=== PATIENT | male | born 1960 | race Caucasian/White ===

== ENCOUNTER 2017-04-13 22:13 | Inpatient (IN) | payer OTHER ==
[~2017-04-13] VITALS: Ht 172.7 cm; Wt 93.6 kg
[~2017-04-13 22:13] MED LIST: ADVA500A INH; BETA0.052 TOPICAL; CLAR10CA3 PO; IPRAAER INH; RANI150T PO; SPIRCAP INH; TERA1CAP3 PO
[2017-04-13 22:15] VITALS: BP 148/76; PULSE 100; RESP 18; TEMP 98.7; O2SAT 98
[2017-04-13 22:43] VITALS: BP 155/78; PULSE 96; RESP 18; TEMP 98.7; O2SAT 96
[2017-04-13] MEDS ORDERED: SODIUM CHLORIDE 0.9% FLUSH 10 ML FLUSH IV FLUSH PRN (23:00)
[2017-04-13 23:15] VITALS: RESP 18; O2SAT 96
--- NOTE | 2017-04-13 23:34 | RADRPT ---
EXAM DATE/TIME: 04/13/2017 23:21 [facility] COMPARISON: No previous studies available for comparison. INDICATIONS : Abdomen pain, free air. MEDICAL HISTORY : Myocardial infarction. Congestive heart failure. Chronic obstructive pulmonary disease. SURGICAL HISTORY : None. ENCOUNTER: Initial ACUITY: 2 months PAIN SCORE: 8/10 LOCATION: Bilateral chest FINDINGS: A single view of the chest demonstrates the lungs to be symmetrically aerated without evidence of mas s, infiltrate or effusion. The cardiomediastinal contours are unremarkable. Osseous structures are intact. No significant free air. CONCLUSION: 1. No acute cardiopulmonary disease. 2. No significant free air. Eloy Patel MD on April 13, 2017 at 23:33 Board Certified Radiologist. This report was verified electronically.
[2017-04-13 23:38] LABS: HEMATOCRIT 36.1 % (39.0-51.0); MEAN CELL VOLUME 117.5 FL (80.0-100.0); MEAN CORPUSCULAR HEMOGLOBIN 39.9 PG (27.0-34.0); RED BLOOD COUNT 3.07 MIL/MM3 (4.50-5.90); RED CELL DISTRIBUTION WIDTH 13.9 % (11.6-17.2); WHITE BLOOD COUNT 8.5 TH/MM3 (4.0-11.0)
[2017-04-13 23:39] LABS: HEMO FLAGS AUTO DIFF; PLATELET COUNT 78 TH/MM3 (150-450)
[2017-04-13 23:46] LABS: CHLORIDE 96 MEQ/L (98-107); POTASSIUM 3.7 MEQ/L (3.5-5.1); SODIUM (NA) 131 MEQ/L (136-145)
[2017-04-13 23:50] LABS: ANION GAP 10 MEQ/L (5-15)
[2017-04-13 23:51] LABS: APTT (PATIENT) 35.5 SEC (24.3-30.1); BLOOD UREA NITROGEN 15 MG/DL (7-18); INTERNATIONAL NORMALIZED RATIO 1.5 RATIO; PROTHROMBIN TIME - PATIENT 16.5 SEC (9.8-11.6)
[2017-04-13 23:53] LABS: ALT (GPT) 17 U/L (12-78); AST (GOT) 44 U/L (15-37); GLOMERULAR FILTRATION RATE 69 ML/MIN (>89)
[2017-04-13 23:54] LABS: BANDS 4 % (0-6); BASOPHILS 1 % (0-2); EOSINOPHILS 1 % (0-4); NEUTROPHIL # MANUAL DIFF 7.1 TH/MM3 (1.8-7.7); POLYS (SEG NEUTROPHILS) 80 % (16-70); WBC DIFF SAMPLE 100
[2017-04-13 23:55] LABS: PLATELET ESTIMATE SMEAR LOW (NORMAL); PLATELET MORPHOLOGY NORMAL (NORMAL); SCAN/DIFF FINAL DIFF MANUAL; TOTAL BILIRUBIN ADULT 5.9 MG/DL (0.2-1.0)
[2017-04-13 23:56] LABS: ALKALINE PHOSPHATASE 118 U/L (45-117)
[2017-04-13 23:57] LABS: ALCOHOL LESS THAN 3 MG/DL (0-5); CREATINE KINASE 49 U/L (39-308)
[2017-04-14] VITALS (13 sets, daily range): BP systolic 108–167; BP diastolic 61–95; PULSE 78–103; RESP 18–20; TEMP 97–98.7; O2SAT 92–99
[2017-04-14] MEDS ORDERED: IOHEXOL 350 MG/ML 10 ML VIAL (for RAD DIAG) IVCONTRAST ONE (00:15)
[2017-04-14] MEDS ORDERED: PIPERACIL-TAZO 4.5 GM PREMIX 100 ML IV ONE (00:30)
--- NOTE | 2017-04-14 00:43 | RADRPT ---
EXAM DATE/TIME: 04/14/2017 00:11 [facility] COMPARISON: No previous studies available for comparison. INDICATIONS : Nausea, vomiting, diarrhea, bloating for several weeks. IV CONTRAST: 96 cc Omnipaque 350 (iohexol) IV ORAL CONTRAST: No oral contrast ingested. RADIATION DOSE: 29.15 CTDIvol (mGy) MEDICAL HISTORY : Chronic obstructive pulmonary disease. Cardiovascular disease SURGICAL HISTORY : None. ENCOUNTER: Initial ACUITY: 3 weeks PAIN SCALE: 9/10 LOCATION: middle abdomen TECHNIQUE: Volumetric scanning of the abdomen and pelvis was performed. Using automated exposure control and ad justment of the mA and/or kV according to patient size, radiation dose was kept as low as reasonably achievable to obtain optimal diagnostic quality images. DICOM format image data is available electro nically for review and comparison. FINDINGS: LOWER LUNGS: The visualized lower lungs are clear. LIVER: Cirrhotic appearing liver which demonstrates at least 3 hypodense lesions in the right lobe. These in clude an ill-defined 3.3 x 3.1 cm mass in medial segment 7, 3.8 x 2.8 cm mass in the segment 6 with a djacent 3.0 x 1.9 cm mass more posteriorly and inferiorly. No significant intrahepatic ductal dilatat ion. There is moderate to large amount of ascites. There is a recannulized periumbilical vein. Main p ortal vein is patent. Gallbladder is distended but unremarkable by CT. SPLEEN: Spleen is enlarged measuring up to 18 cm in length. PANCREAS: Within normal limits. KIDNEYS: 2 cm cyst in the anterior mid left kidney. Subcentimeter cystic lesions in the superior pole of the r ight kidney which are too small to fully characterize. Kidneys are otherwise symmetrical in size and demonstrate symmetrical enhancement. No radiopaque renal calculi or hydronephrosis. ADRENAL GLANDS: Within normal limits. VASCULAR: Small fusiform infrarenal abdominal aortic aneurysm measuring up to 3.9 cm in axial dimension. There is a very small amount of mural thrombus. BOWEL/MESENTERY: Bowel appears grossly unremarkable without evidence for obstruction. ABDOMINAL WALL: Within normal limits. RETROPERITONEUM: There is no lymphadenopathy. BLADDER: No wall thickening or mass. REPRODUCTIVE: Within normal limits. INGUINAL: There is no lymphadenopathy or hernia. MUSCULOSKELETAL: Within normal limits for patient age. CONCLUSION: 1. Cirrhotic appearing liver with evidence for portal hypertension and moderate to large amount of as cites. There are multiple hypodense hepatic masses primarily in the right lobe of the liver measuring 3.3 cm, 3.8 cm, and 3.0 cm, as above. These masses are concerning for hepatocellular carcinoma given underlying cirrhosis. Further characterization may be performed on outpatient basis with hepatic [facility] s protocol MRI exam. Percutaneous biopsy would be challenging due to ascites although likely feasible . 2. Small 3.9 cm fusiform infrarenal abdominal aortic aneurysm. 1. Eloy Patel MD on April 14, 2017 at 0:32 Board Certified Radiologist. This report was verified electronically.
--- NOTE | 2017-04-14 00:52 | PD ---
HPI Chief Complaint: Abdominal Pain Time Seen by Provider: 22:59 Travel History International Travel<30 days: No Contact w/Intl Traveler<30days: No Traveled to known affect area: No History of Present Illness HPI 56-year-old male presents to the emergency department by private transportation the care of his sibling for evaluation of generalized weakness intermittent fever and chills and increasing abdominal girth. Patient reportedly was last seen in his primary care office approximately one month ago and reportedly his symptoms were not severe. Patient and brother who is at bedside reportedly they did not contact his primary care provider regarding his worsening symptoms. Family finally decided to bring him to the emergency room for evaluation. Patient and brother reported that he has idiopathic intestinal angioedema for which she drinks beer daily 5-6 to control the urticaria. Patient last drank alcohol yesterday. Patient denies any known liver disease. Patient states that he may have blood work done and everything was "all normal" . Patient also reports prior history of myocardial infarction but denies any chest pain or shortness of breath. Patient states recently he has been trying to exercise but too much weakness to do sit ups or pushups like he used it. PFSH Past Medical History Narrative Medical CAD COPD SD tobacco use alcohol use; nursing notes reviewed Blood Disorders: No Cardiovascular Problems: Yes COPD: Yes Coronary Artery Disease: Yes Diminished Hearing: No Respiratory: Yes Myocardial Infarction: Yes Tetanus Vaccination: Unknown Influenza Vaccination: No Social History Alcohol Use: Yes (8beers daily) Tobacco Use: Yes Substance Use: No Allergies-Medications (Allergen,Severity, Reaction): Coded Allergies: No Known Allergies (Verified , 04/13/17) Uncoded Allergies: NKA (Allergy, Unknown, 04/15/03) Reported Meds & Prescriptions Reported Meds & Active Scripts Active Advair Diskus Inh (Fluticasone-Salmeterol Inh) 500-50 Mcg/Blist Aer 1 Puff INH BID Rinse mouth after use. Betamethasone Dipropionate Topical 0.05% Cream 1 Applic TOPICAL BID Claritin (Loratadine) 10 Mg Cap 10 Mg PO DAILY Terazosin (Terazosin HCl) 1 Mg Cap 1 Mg PO HS Spiriva Handihaler (Tiotropium Inh) 18 Mcg Cap 18 Mcg INH DAILY 1 capsule = 18 mcg Ranitidine (Ranitidine HCl) 150 Mg Tab 150 Mg PO DAILY Combivent Respimat Inh (Ipratropium-Albuterol Inh) 20-100 Assisted/Act Aero 1 Puff INH Q6HR Review of Systems Except as stated in HPI: all other systems reviewed are Neg General / Constitutional: Positive: Fever, Chills HENT: No: Congestion Cardiovascular: No: Chest Pain or Discomfort Respiratory: No: Shortness of Breath Gastrointestinal: Positive: Nausea, Abdominal Pain (increasing abdominal girth) , No: Vomiting, Diarrhea Genitourinary: No: Dysuria ( redness or lower abdomen), Flank Pain Musculoskeletal: No: Myalgias, Arthralgias Skin: No Rash Neurologic: Positive: Weakness Psychiatric: No: Anxiety Hematologic/Lymphatic: No: Lymph Node Enlargement Physical Exam Narrative GENERAL: Ill-appearing male in no acute respiratory distress SKIN: Warm and dry. Jaundice HEAD: Normocephalic. EYES: Scleral icterus. No injection or drainage. NECK: Supple, trachea midline. No JVD or lymphadenopathy. CARDIOVASCULAR: Regular rate and rhythm without murmurs, gallops, or rubs. RESPIRATORY: Breath sounds equal bilaterally. No accessory muscle use. GASTROINTESTINAL: Abdomen soft, diffusely tender with fluid wave, distended, nontender; lower abdominal wall erythema without crepitus. MUSCULOSKELETAL: No cyanosis, or edema. Radial and dorsalis pedis pulses 2+ to palpation bilaterally BACK: Nontender without obvious deformity. No CVA tenderness. Data Data Last Documented VS Vital Signs Date Time Temp Pulse Resp B/P (MAP) Pulse Ox O2 Delivery O2 Flow Rate FiO2 04/14/17 00:33 94 18 145/74 (97) 96 Room Air 04/13/17 22:43 98.7 Orders Orders Complete Blood Count With Diff (04/13/17 22:59) Comprehensive Metabolic Panel (04/13/17 22:59) Lipase (04/13/17 22:59) Lactic Acid (04/13/17 22:59) Prothrombin Time / Inr (Pt) (04/13/17 22:59) Act Partial Throm Time (Ptt) (04/13/17 22:59) Urinalysis - C+S If Indicated (04/13/17 22:59) Ct Abd/Pel W Iv Contrast(Rout) (04/13/17 22:59) Iv Access Insert/Monitor (04/13/17 22:59) Ecg Monitoring (04/13/17 22:59) Oximetry (04/13/17 22:59) Sodium Chloride 0.9% Flush (Ns Flush) (04/13/17 23:00) Electrocardiogram (04/13/17 22:59) Chest, Single Ap (04/13/17 22:59) Magnesium (Mg) (04/13/17 22:59) Ckmb (Isoenzyme) Profile (04/13/17 22:59) Troponin I (04/13/17 22:59) Ammonia (04/13/17 22:59) Alcohol (Ethanol) (04/13/17 22:59) Blood Culture (04/13/17 22:59) Drug Screen, Random Urine (04/13/17 23:10) Iohexol 350 Inj (Omnipaque 350 Inj) (04/14/17 00:15) Piperacil-Tazo 4.5 Gm Premix (Zosyn 4.5 (04/14/17 00:30) Lorazepam Inj (Ativan Inj) (04/14/17 01:45) Admit To Inpatient (04/14/17 ) Vital Signs (Adult) Q4H (04/14/17 01:35) Activity Oob With Assistance (04/14/17 01:35) Meat Dresser / Telemetry .CONTINUOUS (04/14/17 01:35) Intake + Output LAISHA.QSHIFT (04/14/17 01:35) Diet Heart Healthy (04/14/17 Breakfast) Sodium Chloride 0.9% Flush (Ns Flush) (04/14/17 01:45) Sodium Chloride 0.9% Flush (Ns Flush) (04/14/17 09:00) Comprehensive Metabolic Panel (04/15/17 06:00) Complete Blood Count With Diff (04/15/17 06:00) Case Management Consult (04/14/17 01:35) Naloxone Inj (Narcan Inj) (04/14/17 01:45) Inpatient Certification (04/14/17 ) Us Guided Abd Paracentesis (04/14/17 ) Peritoneal Cell Count + Diff (04/14/17 01:35) Total Protein Peritoneal Fluid (04/14/17 01:35) Albumin, Peritoneal Fluid (04/14/17 01:35) Glucose, Peritoneal Fluid (04/14/17 01:35) Ldh, Peritoneal Fluid (04/14/17 01:35) Amylase, Peritoneal Fluid (04/14/17 01:35) Fluid Culture And Gram Stain (04/14/17 01:35) Cytology Request For Service (04/14/17 01:35) Total Protein (04/14/17 01:35) Ldh Serum (04/14/17 01:35) Lorazepam Inj (Ativan Inj) (04/14/17 01:45) ^ Etoh Withdrawal Precautions (04/14/17 01:38) Consult Gastroenterology (04/14/17 ) Admit Order (Ed Use Only) (04/14/17 ) ^ Saline Lock (04/14/17 01:39) Resp Oxygen Wolf C Titrat 1-4 L (04/14/17 ) Notify Dr: Other (04/14/17 01:39) Sodium Chloride 0.9% Flush (Ns Flush) (04/14/17 09:00) Sodium Chloride 0.9% Flush (Ns Flush) (04/14/17 01:45) Labs Laboratory Tests Test 04/13/17 23:15 White Blood Count 8.5 TH/MM3 Red Blood Count 3.07 MIL/MM3 Hemoglobin 12.3 GM/DL Hematocrit 36.1 % Mean Corpuscular Volume 117.5 FL Mean Corpuscular Hemoglobin 39.9 PG Mean Corpuscular Hemoglobin Concent 34.0 % Red Cell Distribution Width 13.9 % Platelet Count 78 TH/MM3 Mean Platelet Volume 8.2 FL CBC Comment AUTO DIFF Differential Total Cells Counted 100 Neutrophils % (Manual) 80 % Band Neutrophils % 4 % Lymphocytes % 3 % Monocytes % 11 % Eosinophils % 1 % Basophils % 1 % Neutrophils # (Manual) 7.1 TH/MM3 Differential Comment FINAL DIFF MANUAL Platelet Estimate LOW Platelet Morphology Comment NORMAL Prothrombin Time 16.5 SEC Prothromb Time International Ratio 1.5 RATIO Activated Partial Thromboplast Time 35.5 SEC Blood Urea Nitrogen 15 MG/DL Creatinine 1.10 MG/DL Random Glucose 115 MG/DL Total Protein 6.9 GM/DL Albumin 2.1 GM/DL Calcium Level 8.2 MG/DL Magnesium Level 2.0 MG/DL Alkaline Phosphatase 118 U/L Aspartate Amino Transf (AST/SGOT) 44 U/L Alanine Aminotransferase (ALT/SGPT) 17 U/L Total Bilirubin 5.9 MG/DL Sodium Level 131 MEQ/L Potassium Level 3.7 MEQ/L Chloride Level 96 MEQ/L Carbon Dioxide Level 25.0 MEQ/L Anion Gap 10 MEQ/L Estimat Glomerular Filtration Rate 69 ML/MIN Lactic Acid Level 2.1 mmol/L Ammonia 41 MCMOL/L Total Creatine Kinase 49 U/L Troponin I LESS THAN 0.02 NG/ML Lipase 116 U/L Ethyl Alcohol Level LESS THAN 3 MG/DL MDM Medical Decision Making Medical Screen Exam Complete: Yes Emergency Medical Condition: Yes Medical Record Reviewed: Yes Interpretation(s) EKG normal sinus rhythm rate [address] elevation or injury pattern change noted QS noted inferiorly as well as septally age-indeterminate infarcts incomplete noted right bundle branch block CBC & BMP Diagram 04/13/17 23:15 Total Protein 6.9, Albumin 2.1 L, Calcium Level 8.2 L, Magnesium Level 2.0, Alkaline Phosphatase 118 H, Aspartate Amino Transf (AST/SGOT) 44 H, Alanine Aminotransferase (ALT/SGPT) 17, Total Bilirubin 5.9 H Troponin I less than 0.02, not elevated; CK 49, not elevated Serum ammonia elevated 41 Lactic acid elevated 2.1 Last Impressions Chest X-Ray [id number]/[id number] Signed Impressions: Service Date/Time: April 23:21 - CONCLUSION: 1. No acute cardiopulmonary disease. 2. No significant free air. Eloy Patel MD Abdomen/Pelvis CT [id number] Signed Impressions: Service Date/Time: Friday, April 14, 2017 00:11 - CONCLUSION: 1. Cirrhotic appearing liver with evidence for portal hypertension and moderate to large amount of ascites. There are multiple hypodense hepatic masses primarily in the right lobe of the liver measuring 3.3 cm, 3.8 cm, and 3.0 cm, as above. These masses are concerning for hepatocellular carcinoma given underlying cirrhosis. Further characterization may be performed on outpatient basis with hepatic mass protocol MRI exam. Percutaneous biopsy would be challenging due to ascites although likely feasible. 2. Small 3.9 cm fusiform infrarenal abdominal aortic aneurysm. 1. Eloy Patel MD Differential Diagnosis Obstructive jaundice cirrhosis liver failure ascites pancreatitis mass spontaneous bacterial peritonitis cellulitis alcoholism alcohol withdrawal SD Narrative Course IV access obtained specimens collected and sent for resulting Patient resting comfortably at this time no trauma no agitation no hypertension no tachycardia heart rate upper limit of normal; patient at risk for alcohol withdrawal as drinks beer daily and no alcohol today serum alcohol is less than 3; patient has hyperammonemia 41 his coags exam is consistent with cirrhosis with ascites concerning for obstructive jaundice CT abdomen and pelvis pending LFTs total bilirubin 5.9 lactic acid is elevated 2.1 patient has prolonged coagulation studies along with thrombocytopenia CT abdomen and pelvis shows cirrhosis ascites and hyperdense areas concerning for hepatocellular CA with recommendation for biopsy Patient's case discussed with on-call physician Dr. Spicer --- will admit for alcohol cirrhosis with ascites focal area of lower abdomen dependent erythema with focal cellulitis hyperammonemia alcohol withdrawal thrombocytopenia possible hepatocellular carcinoma and concern for bacterial peritonitis. Physician Communication Physician Communication discussed with Dr Spicer Diagnosis Primary Impression: Cirrhosis of liver with ascites Qualified Codes: K70.31 - Alcoholic cirrhosis of liver with ascites Additional Impressions: Cellulitis of abdominal wall COPD (chronic obstructive pulmonary disease) Qualified Codes: J44.9 - Chronic obstructive pulmonary disease, unspecified Alcohol abuse, daily use Thrombocytopenia Admitting Information Admitting Physician Requests: it Tania Bentley MD Apr 14, 2017 00:52
[2017-04-14] MEDS ORDERED: NALOXONE HCL 0.4 MG/ML AMP IV PRN (01:45)
[2017-04-14] MEDS ORDERED: SODIUM CHLORIDE 0.9% FLUSH 10 ML FLUSH IV FLUSH PRN (01:45)
[2017-04-14] MEDS ORDERED: LORazepam 2 MG/ML VIAL IV PUSH PRN ×2 (01:45→10:45)
[2017-04-14] MEDS ORDERED: LORazepam 2 MG/ML VIAL IV PUSH ONE (01:45)
[2017-04-14] MEDS ORDERED: SODIUM CHLORIDE 0.9% FLUSH 10 ML FLUSH IVF PRN (01:45)
[2017-04-14 04:27] LABS: BLOOD, URINE NEG (NEG); GLUCOSE,URINE NEG (NEG); KETONE, URINE NEG (NEG); NITRITE,URINE NEG (NEG); PH, URINE 5.5 (5.0-8.5)
[2017-04-14 04:34] LABS: URINE COLOR ORANGE (YELLW/STRAW)
[2017-04-14 04:35] LABS: COMMENT (UR) CULT NOT INDICATED; CULTURE IF INDICATED CULT NOT INDICATED; RBC, URINE 0-3 /hpf (0-3); SQUAMOUS EPITHELIAL CELL URINE 0-5 /hpf (0-5); WBC, URINE 0-2 /hpf (0-5)
[2017-04-14] MEDS: SODIUM CHLORIDE 0.9% FLUSH 10 ML FLUSH IV FLUSH SCH ×2 (08:58→20:47)
[2017-04-14] MEDS ORDERED: SODIUM CHLORIDE 0.9% FLUSH 10 ML FLUSH IV FLUSH SCH (09:00)
[2017-04-14 09:34] LABS: LDH SERUM 136 U/L (87-241)
[2017-04-14] MEDS ORDERED: ONDANSETRON HCL 4 MG/2 ML VIAL IV PRN (10:45)
[2017-04-14] MEDS ORDERED: LORazepam 2 MG TAB PO PRN (10:45)
[2017-04-14] MEDS ORDERED: FLUMAZENIL 0.5 MG/5 ML VIAL IV PUSH PRN (10:45)
--- NOTE | 2017-04-14 11:35 | EKG ---
Date Performed: 04/13/2017 Time Performed: 23:48:33 PTAGE: 56 years EKG: Sinus rhythm RIGHT AXIS DEVIATION LOW QRS VOLTAGE INCOMPLETE RIGHT BUNDLE BRANCH BLOCK POSSIBLE INFERIOR MYOCARDI AL INFARCTION POSSIBLE ANTEROSEPTAL MYOCARDIAL INFARCTION ABNORMAL ECG PREVIOUS TRACING : 02/21/2003 13.12 No significant change from previous tracing noted. DOCTOR: French Gonzalez Interpretating Date/Time 04/14/2017 11:33:36
[2017-04-14] MEDS: FOLIC ACID 1 MG TAB PO SCH (11:52)
[2017-04-14] MEDS: MULTIVITAMINS/MINERALS THERAPEUTIC TAB PO SCH (11:52)
[2017-04-14] MEDS: FUROSEMIDE 40 MG TAB PO SCH (11:52)
[2017-04-14] MEDS: THIAMINE HCL 100 MG TAB PO SCH (11:52)
--- NOTE | 2017-04-14 13:24 | HHI.HP ---
[facility] Primary Care Physician Miladis Huffman MD Admission Diagnosis Alcohol cirrhosis w/ ascites; focal abd wall cellulitis Diagnoses: (1) Cirrhosis of liver with ascites (2) Liver masses (3) Hyponatremia (4) Idiopathic znzxx-cjqlm-mvczegjqx (5) Cellulitis of abdominal wall (6) Alcohol abuse, daily use (7) Thrombocytopenia Travel History International Travel<30 Days: No Contact w/Intl Traveler <30 Da: No Traveled to Known Affected Are: No History of Present Illness This is a 56 year-old male with history of daily alcohol use, idiopathic angioedema urticaria who presented to the hospital yesterday via private vehicle for complaints of increasing abdominal girth. History is obtained from the patient as well as review of the emergency department records. The patient himself is a poor historian and is somewhat somnolent. The patient states that his abdomen has "just been getting bigger and bigger." He states it is difficult to sit up. He states he has eaten very little over the past few days. The patient denies fever or chills to me however this was reported in the ER chart. Reportedly he was seen by his primary care physician a month ago however the patient is unable to offer me any details of this. The patient states that he drinks beer daily to control his urticaria. He also takes Benadryl nightly. The patient denies any Tylenol use. The patient states she also has history of myocardial infarction in the past however he is unable to tell me if he has a stent, deferring to his mother "my mom knows all that." Patient denies any weight loss, blood in the stool or hematemesis. Patient denies any history of IV drug abuse or hepatitis. In the emergency department abdominal CT scan showed a cirrhotic liver with large ascites and multiple hypodense hepatic masses in the right lobe of the liver measuring 3-3.8 cm concerning for hepatocellular carcinoma. 10 point review systems otherwise negative although as stated above patient is a poor historian. Past Family Social History Past Medical History Idiopathic urticarial angioedema Reported history of coronary artery disease and myocardial infarction Alcoholism COPD BPH Reported Medications Patient states he takes a little blue pill daily. Allergies: Coded Allergies: No Known Allergies (Verified , 04/13/17) Uncoded Allergies: NKA (Allergy, Unknown, 04/15/03) Family History Negative for liver cancer Social History The patient states he smokes 3 cigarettes per day. Physical Exam Vital Signs Vital Signs Date Time Temp Pulse Resp B/P (MAP) Pulse Ox O2 Delivery O2 Flow Rate FiO2 04/14/17 08:39 88 04/14/17 08:27 98.6 98 19 108/79 (89) 92 04/14/17 04:19 94 04/14/17 04:00 97.0 103 20 167/95 (119) 97 04/14/17 03:40 99 21 04/14/17 02:41 92 18 96 04/14/17 02:25 92 18 150/74 (99) 96 Room Air 04/14/17 00:33 94 18 145/74 (97) 96 Room Air 04/13/17 23:15 18 96 Room Air 04/13/17 22:43 18 04/13/17 22:43 98.7 96 18 155/78 (103) 96 Room Air 04/13/17 22:15 98.7 100 18 148/76 (100) 98 Physical Exam GENERAL: Chronically ill-appearing male patient in no significant stress. SKIN: He appears jaundiced. Some spider telangiectasias. Warm and dry. Erythema of the palms and erythema over the lower abdomen noted. HEAD: Normocephalic. EYES: noted scleral icterus. No injection or drainage. NECK: Supple, trachea midline. No JVD or lymphadenopathy. CARDIOVASCULAR: Regular rate and rhythm without murmurs, gallops, or rubs. RESPIRATORY: Breath sounds equal bilaterally. No accessory muscle use. GASTROINTESTINAL: Bowel sounds are normal. Abdomen is massive with ascites but soft and nontender without rebound or guarding. He does have some erythema over the lower abdomen however no induration nontender to palpation. EXTREMITIES: He has erythema of the palms. Trace pedal edema. NEUROLOGICAL: Somnolent but oriented to date and place. Laboratory Laboratory Tests Test 04/13/17 23:15 04/14/17 04:00 White Blood Count 8.5 Red Blood Count 3.07 Hemoglobin 12.3 Hematocrit 36.1 Mean Corpuscular Volume 117.5 Mean Corpuscular Hemoglobin 39.9 Mean Corpuscular Hemoglobin Concent 34.0 Red Cell Distribution Width 13.9 Platelet Count 78 Mean Platelet Volume 8.2 CBC Comment AUTO DIFF Differential Total Cells Counted 100 Neutrophils % (Manual) 80 Band Neutrophils % 4 Lymphocytes % 3 Monocytes % 11 Eosinophils % 1 Basophils % 1 Neutrophils # (Manual) 7.1 Differential Comment FINAL DIFF MANUAL Platelet Estimate LOW Platelet Morphology Comment NORMAL Prothrombin Time 16.5 Prothromb Time International Ratio 1.5 Activated Partial Thromboplast Time 35.5 Blood Urea Nitrogen 15 Creatinine 1.10 Random Glucose 115 Total Protein 6.9 Albumin 2.1 Calcium Level 8.2 Magnesium Level 2.0 Alkaline Phosphatase 118 Aspartate Amino Transf (AST/SGOT) 44 Alanine Aminotransferase (ALT/SGPT) 17 Lactate Dehydrogenase 136 Total Bilirubin 5.9 Sodium Level 131 Potassium Level 3.7 Chloride Level 96 Carbon Dioxide Level 25.0 Anion Gap 10 Estimat Glomerular Filtration Rate 69 Lactic Acid Level 2.1 Ammonia 41 Total Creatine Kinase 49 Troponin I LESS THAN 0.02 Lipase 116 Ethyl Alcohol Level LESS THAN 3 Urine Color ORANGE Urine Turbidity CLEAR Urine pH 5.5 Urine Specific Distant GREATER THAN 1.035 Urine Protein NEG Urine Glucose (UA) NEG Urine Ketones NEG Urine Occult Blood NEG Urine Nitrite NEG Urine Bilirubin NEG Urine Leukocyte Esterase NEG Urine RBC 0-3 Urine WBC 0-2 Urine Squamous Epithelial Cells 0-5 Urine Bacteria NONE Microscopic Urinalysis Comment CULT NOT INDICATED Urine Opiates Screen NEG Urine Barbiturates Screen NEG Urine Amphetamines Screen NEG Urine Benzodiazepines Screen POS Urine Cocaine Screen NEG Urine Cannabinoids Screen NEG Date/Time Source Procedure Growth Status 04/13/17 23:20 Blood Peripheral Aerobic Blood Culture - Preliminary NO GROWTH IN 1 DAY Resulted 04/13/17 23:20 Blood Peripheral Anaerobic Blood Culture - Preliminary NO GROWTH IN 1 DAY Resulted Result Diagram: 04/13/17 2315 04/13/172314 Imaging Last Impressions Chest X-Ray 04/13/172258 Signed Impressions: Service Date/Time: April 23:21 - CONCLUSION: 1. No acute cardiopulmonary disease. 2. No significant free air. Eloy Patel MD Abdomen/Pelvis CT 04/13/172258 Signed Impressions: Service Date/Time: Friday, April 14, 2017 00:11 - CONCLUSION: 1. Cirrhotic appearing liver with evidence for portal hypertension and moderate to large amount of ascites. There are multiple hypodense hepatic masses primarily in the right lobe of the liver measuring 3.3 cm, 3.8 cm, and 3.0 cm, as above. These masses are concerning for hepatocellular carcinoma given underlying cirrhosis. Further characterization may be performed on outpatient basis with hepatic mass protocol MRI exam. Percutaneous biopsy would be challenging due to ascites although likely feasible. 2. Small 3.9 cm fusiform infrarenal abdominal aortic aneurysm. 1. Eloy Patel MD Caprinmarian VTE Risk Assessment Caprini VTE Risk Assessment: Mod/High Risk (score >= 2) VTE Pharm Contraindication: Coagulopathy,INR elevated Caprini Risk Assessment Model Point Value = 1 Point Value = 2 Point Value = 3 Point Value = 5 Age 41-60 Minor surgery BMI > 25 kg/m2 Swollen legs Varicose veins or History of unexplained or recurrent spontaneous Oral contraceptives or hormone replacement Sepsis (< 1 month) Serious lung disease, including pneumonia (< 1 month) Abnormal pulmonary function Acute myocardial infarction Congestive heart failure (< 1 month) History of inflammatory bowel disease Medical patient at bed rest Age 61-74 Arthroscopic surgery Major open surgery (> 45 min) Laparoscopic surgery (> 45 min) Malignancy Confined to bed (> 72 hours) Immobilizing plaster cast Central venous access Age >= 75 History of VTE Family history of VTE Factor V Leiden Prothrombin [id number] Lupus anticoagulant Anticardiolipin antibodies Elevated serum homocysteine Heparin-induced thrombocytopenia Other congenital or acquired thrombophilia Stroke (< 1 month) Elective arthroplasty Hip, pelvis, or leg fracture Acute spinal cord injury (< 1 month) Prophylaxis Regimen Total Risk Factor Score Risk Level Prophylaxis Regimen 0-1 Low Early ambulation 2 Moderate Order ONE of the following: *Sequential Compression Device (SCD) *Heparin 5000 units SQ BID 3-4 Higher Order ONE of the following medications: *Heparin 5000 units SQ TID *Enoxaparin/Lovenox 40 mg SQ daily (WT < 150 kg, CrCl > 30 mL/min) *Enoxaparin/Lovenox 30 mg SQ daily (WT < 150 kg, CrCl > 10-29 mL/min) *Enoxaparin/Lovenox 30 mg SQ BID (WT < 150 kg, CrCl > 30 mL/min) AND/OR *Sequential Compression Device (SCD) 5 or more Highest Order ONE of the following medications: *Heparin 5000 units SQ TID (Preferred with Epidurals) *Enoxaparin/Lovenox 40 mg SQ daily (WT < 150 kg, CrCl > 30 mL/min) *Enoxaparin/Lovenox 30 mg SQ daily (WT < 150 kg, CrCl > 10-29 mL/min) *Enoxaparin/Lovenox 30 mg SQ BID (WT < 150 kg, CrCl > 30 mL/min) AND *Sequential Compression Device (SCD) Assessment and Plan Problem List: (1) Thrombocytopenia ICD Code: D69.6 - Thrombocytopenia, unspecified Status: Chronic (2) Alcohol abuse, daily use ICD Code: F10.10 - Alcohol abuse, uncomplicated Status: Chronic (3) Cellulitis of abdominal wall ICD Code: L03.311 - Cellulitis of abdominal wall Status: Acute (4) Cirrhosis of liver with ascites ICD Code: K74.60 - Unspecified cirrhosis of liver Status: Acute (5) Hyponatremia ICD Code: E87.1 - Hypo-osmolality and hyponatremia Status: Acute (6) Idiopathic usnbp-lhgde-mgpycawbq ICD Code: L50.1 - Idiopathic urticaria Status: Chronic (7) Liver masses ICD Code: R16.0 - Hepatomegaly, not elsewhere classified Status: Acute Assessment and Plan 1. Cirrhosis with ascites, multiple 3 cm liver masses in the right lobe of the liver. Probable hepatocellular carcinoma. Diagnostic and therapeutic paracentesis with liver biopsy has been ordered. I discussed the patient with Dr. Mays. Radiology cannot perform the paracentesis at this hospital so we will transfer to the [facility]. I will start the patient on Lasix and spironolactone. Additionally ordered alpha- fetoprotein. Patient counseled to quit alcohol use. Start on Rocephin for prophylaxis of SBP and for the possible mild cellulitis over the lower abdomen although I suspect this is more likely related to venous stasis. 2. Alcoholism - will start on thiamine, folic acid and multivitamin. CIWA protocol initiated. 3. Mild hyponatremia secondary to the cirrhosis and fluid overload. 4. Thrombocytopenia secondary to cirrhosis. 5. Coagulopathy with INR of 1.5. 7. Idiopathic urticarial angioedema - use Benadryl as needed. 8. Reported history of coronary artery disease and myocardial infarction - avoid aspirin in this patient with thrombocytopenia and risk for bleeding. 9. COPD - continue bronchodilators. 10. BPH - resume Hytrin. 11. DVT prophylaxis with SCDs. Problem Qualifiers (1) Cirrhosis of liver with ascites: Qualified Codes: K70.31 - Alcoholic cirrhosis of liver with ascites Johanna Rodriguez MD Apr 14, 2017 13:24
[2017-04-14] MEDS: cefTRIAXone INJ 1,000 MG in SODIUM CHLORIDE 0.9% INJ 100 ML IV SCH (14:08)
--- NOTE | 2017-04-14 14:26 | MB ---
cc: DANE MAYS M.D., MICHELLE S. MD KIM, KRISTEN DATE OF CONSULTATION April 14, [address] Rodriguez. REASON FOR CONSULTATION Liver cirrhosis with new onset ascites, possible hepatocellular carcinoma. HISTORY OF PRESENT ILLNESS Mr. Reis is a 56-year-old gentleman who is a fairly poor historian. He basically presented with abdominal distension and generalized feeling of malaise. Initial workup in the emergency room including a CT scan reveals possibility of hepatocellular carcinoma, significant ascites. As per chart the patient has denied any previous knowledge of liver cirrhosis. He drinks alcohol regularly, but supposedly this is to help with his idiopathic intestinal angioedema. He is denying any bleeding. There is no nausea, vomiting at this time. PAST MEDICAL HISTORY Coronary artery disease, COPD, history of CA in the past, idiopathic intestinal angioedema. SOCIAL HISTORY The patient drinks beer daily, also smokes cigarettes. ALLERGIES None documented. MEDICATIONS On admission: 1. Terazosin. 2. Claritin. 3. Ranitidine. 4. Inhalers. REVIEW OF SYSTEMS No active GI bleeding. The patient is icteric. Abdomen is distended. PHYSICAL EXAMINATION GENERAL: Physical examination reveals a disheveled ill-appearing man in no apparent distress. VITAL SIGNS: Stable. HEAD AND NECK EXAMINATION: Icteric sclerae. CHEST: Bilateral air entry with some rales. ABDOMEN: Distended, tense with ascites. EXTREMITIES: Reveal +1 edema. LABORATORY DATA White cell count 8.5, hemoglobin 12.3, platelets 78,000, INR 1.5, creatinine 1.1, total bilirubin 5.9. IMAGING STUDIES CT of the abdomen and pelvis reveals a cirrhotic appearing liver with portal hypertension, large amount of ascites. Multiple hyperdense hepatic masses primarily in the right lobe of the liver measuring between 3 cm, 3.8 cm. These are very suspicious for hepatocellular carcinoma. IMPRESSION Decompensated liver cirrhosis, possible hepatocellular carcinoma. RECOMMENDATIONS The patient is being transferred to [facility] for ultrasound-guided paracentesis. CT-guided liver biopsy has been requested. Check alpha-fetoprotein levels as well. This has been discussed with Dr. Rodriguez. Overall prognosis is poor. We will follow with you. Thank you for this referral. Dane Mays MD HZ/EO /1:09 PM /2:09 PM
[2017-04-14] MEDS ORDERED: ALBUMIN HUMAN 25% 25 GM/100 ML BAGP IV ONE (17:00)
--- NOTE | 2017-04-14 17:02 | PD.RAD ---
Post US Procedure Prog Note Pre Procedure Diagnosis: (1) Cirrhosis of liver with ascites Post Procedure Diagnosis: (1) Cirrhosis of liver with ascites Procedure Date: Apr 14, 2017 Supervising Radiologist: Jean-Claude Dawson Estimated blood loss: none Anesthesia: Local Plan of Activity Patient to Unit: Nursing Unit Patient Condition: Fair See PACS Report for procedural detail/treatment Drainage Procedure Procedure 1 Imaging Guidance: Ultrasound Side: Right Procedure Type: Paracentesis Greenlandic: 6 Drainage: Suction Fluid Description: Clear, Yellow Jean-Claude Dawson MD Apr 14, 2017 17:02
[2017-04-14] MEDS: SPIRONOLACTONE 50 MG TAB PO SCH (18:05)
[2017-04-14 19:35] LABS: PERITONEAL EOS 1 %; PERITONEAL HISTIOCYTES 21 %; PERITONEAL LYMPHS 15 %; PERITONEAL MESOTHELIAL 2 %; PERITONEAL MONOS 4 %; PERITONEAL POLYS(SEGS) 57 %; PERITONEAL WBC 1200 /MM3 (0-10)
[2017-04-15] VITALS (7 sets, daily range): BP systolic 100–147; BP diastolic 65–77; PULSE 83–98; RESP 12–22; TEMP 98.7–100.8; O2SAT 91–97
[2017-04-15 06:10] LABS: HEMATOCRIT 31.4 % (39.0-51.0); MEAN CELL VOLUME 116.2 FL (80.0-100.0); MEAN CORPUSCULAR HEMOGLOBIN 38.3 PG (27.0-34.0); PLATELET COUNT 76 TH/MM3 (150-450); RED CELL DISTRIBUTION WIDTH 13.6 % (11.6-17.2); WHITE BLOOD COUNT 7.6 TH/MM3 (4.0-11.0)
[2017-04-15 06:16] LABS: HEMO FLAGS AUTO DIFF
[2017-04-15 06:17] LABS: POTASSIUM 3.6 MEQ/L (3.5-5.1)
[2017-04-15 06:18] LABS: INTERNATIONAL NORMALIZED RATIO 1.6 RATIO; PROTHROMBIN TIME - PATIENT 17.5 SEC (9.8-11.6)
[2017-04-15 06:28] LABS: TOTAL BILIRUBIN ADULT 3.7 MG/DL (0.2-1.0)
[2017-04-15 07:38] LABS: BANDS 1 % (0-6); MYELOCYTES 1 % (0-0); NEUTROPHIL # MANUAL DIFF 5.5 TH/MM3 (1.8-7.7); POLYS (SEG NEUTROPHILS) 71 % (16-70); WBC DIFF SAMPLE 100
[2017-04-15 07:39] LABS: PLATELET ESTIMATE SMEAR NORMAL (NORMAL); PLATELET MORPHOLOGY NORMAL (NORMAL); SCAN/DIFF FINAL DIFF MANUAL
[2017-04-15] MEDS: THIAMINE HCL 100 MG TAB PO SCH (08:34)
[2017-04-15] MEDS: FUROSEMIDE 40 MG TAB PO SCH (08:34)
[2017-04-15] MEDS: SPIRONOLACTONE 50 MG TAB PO SCH ×2 (08:34→17:28)
[2017-04-15] MEDS: FOLIC ACID 1 MG TAB PO SCH (08:34)
[2017-04-15] MEDS: MULTIVITAMINS/MINERALS THERAPEUTIC TAB PO SCH (08:34)
[2017-04-15] MEDS: SODIUM CHLORIDE 0.9% FLUSH 10 ML FLUSH IV FLUSH SCH ×2 (08:34→21:00)
[2017-04-15] MEDS: PANTOPRAZOLE SOD 40 MG DELAYED RELEASE TAB PO SCH (08:34)
--- NOTE | 2017-04-15 09:45 | HHI.PR ---
Subjective Remarks Patient states that his back hurts, he wants to leave the hospital. He also would like "a blond." He states his abdomen is still hurting although it is improved. He had low-grade fevers this morning. Denies confusion or tremors. Objective Vitals Vital Signs Date Time Temp Pulse Resp B/P (MAP) Pulse Ox O2 Delivery O2 Flow Rate FiO2 04/15/17 08:00 99.0 90 18 127/66 (86) 94 04/15/17 04:03 100.8 97 14 116/67 (83) 94 04/15/17 00:12 100.4 98 22 147/77 (100) 97 04/14/17 22:01 99 04/14/17 20:44 98.7 96 18 119/75 (90) 98 04/14/17 20:00 95 04/14/17 17:38 99 04/14/17 14:00 98.6 78 19 114/69 (84) 98 04/14/17 13:45 98.7 97 19 140/61 (87) 93 I/O 04/14/17 04/14/17 04/14/17 04/15/17 04/15/17 04/15/17 06:59 14:59 22:59 06:59 14:59 22:59 Intake Total 340 ml 480 ml Output Total 400 ml 200 ml Balance -60 ml -200 ml 480 ml Intake Oral 240 ml 480 ml IV Total 100 ml Output Urine Total 400 ml 200 ml # Voids 3 2 Result Diagram: 04/15/17 0557 04/15/17 0557 Objective Remarks GENERAL: Chronically ill-appearing male patient in no significant stress. SKIN: He appears jaundiced. Some spider telangiectasias. Warm and dry. Erythema of the palms and erythema over the lower abdomen noted. HEAD: Normocephalic. EYES: noted scleral icterus. No injection or drainage. NECK: Supple, trachea midline. No JVD or lymphadenopathy. CARDIOVASCULAR: Regular rate and rhythm without murmurs, gallops, or rubs. RESPIRATORY: Breath sounds equal bilaterally. Mild expiratory wheezing. No accessory muscle use. GASTROINTESTINAL: Bowel sounds are normal. Abdomen with ascites but soft and nontender without rebound or guarding. He does have some erythema over the lower abdomen however no induration nontender to palpation. EXTREMITIES: He has erythema of the palms. Trace pedal edema. NEUROLOGICAL: Alert, oriented to date and place. A/P Problem List: (1) Thrombocytopenia ICD Code: D69.6 - Thrombocytopenia, unspecified Status: Chronic (2) Alcohol abuse, daily use ICD Code: F10.10 - Alcohol abuse, uncomplicated Status: Chronic (3) Cellulitis of abdominal wall ICD Code: L03.311 - Cellulitis of abdominal wall Status: Acute (4) Cirrhosis of liver with ascites ICD Code: K74.60 - Unspecified cirrhosis of liver Status: Acute (5) Hyponatremia ICD Code: E87.1 - Hypo-osmolality and hyponatremia Status: Acute (6) Idiopathic jnlku-sttyc-epoussvao ICD Code: L50.1 - Idiopathic urticaria Status: Chronic (7) Liver masses ICD Code: R16.0 - Hepatomegaly, not elsewhere classified Status: Acute Assessment and Plan 1. Cirrhosis with ascites, multiple 3 cm liver masses in the right lobe of the liver. Probable hepatocellular carcinoma. Low-grade fevers, rule out spontaneous bacterial peritonitis. Status post Diagnostic and therapeutic paracentesis yesterday. liver biopsy has been ordered however this will not be able to be completed until after the storm, may be done as outpatient. I discussed the patient with Dr. Mays yesterday. Patient has been started on by mouth Lasix and spironolactone. alpha-fetoprotein only surgery. Patient counseled to quit alcohol use. Start on Rocephin for prophylaxis of SBP and for the possible mild cellulitis over the lower abdomen. 2. Alcoholism - will start on thiamine, folic acid and multivitamin. CIWA protocol initiated. No evidence of alcohol withdrawal so far. 3. Mild hyponatremia secondary to the cirrhosis and fluid overload. 4. Thrombocytopenia secondary to cirrhosis. 5. Coagulopathy with INR of 1.5. 7. Idiopathic urticarial angioedema - use Benadryl as needed. 8. Reported history of coronary artery disease and myocardial infarction - avoid aspirin in this patient with thrombocytopenia and risk for bleeding. 9. COPD - mild wheezing on exam. Continue bronchodilators. 10. BPH - resume Hytrin. 11. DVT prophylaxis with SCDs. Problem Qualifiers (1) Cirrhosis of liver with ascites: Qualified Codes: K70.31 - Alcoholic cirrhosis of liver with ascites Johanna Rodriguez MD Apr 15, 2017 09:45
[2017-04-15] MEDS: cefTRIAXone INJ 1,000 MG in SODIUM CHLORIDE 0.9% INJ 100 ML IV SCH (14:37)
[2017-04-15] MEDS ORDERED: ACETAMINOPHEN 325 MG TAB PO PRN (15:00)
--- NOTE | 2017-04-15 16:45 | RADRPT ---
EXAM DATE/TIME: 04/14/2017 08:14 [place] COMPARISON: No previous studies available for comparison. INDICATIONS : Ascites. MEDICAL HISTORY : Myocardial infarction. Chronic obstructive pulmonary disease. Hypertension. Coronary artery disease. Bilateral plantar faseitis. Liver disease. SURGICAL HISTORY : None. ENCOUNTER: Initial ACUITY: 1 month PAIN SCORE: 9/10 LOCATION: Left lower quadrant FLUID: Total volume of 7,700 cc of clear, yellow fluid was removed. Fluid was sent to lab for ordered studies. Post procedure scanning reveals no hematoma or other complication. TECHNIQUE: 1. Ultrasound guidance for abdominal paracentesis. 2. Paracentesis. The risks, benefits, and alternatives to ultrasound guided paracentesis were explained to the patient in detail including the risk of bleeding and infection. Written and verbal informed consent was obt ained. With the patient on the ultrasound table, ultrasound imaging was used to select the most appropriate approach for paracentesis. Overlying skin was prepped and draped in the usual sterile fashion and wi th a local anesthetic, a dermatotomy was made with an 11 blade scalpel. A 6 [place] [id number] ca theter was introduced into the peritoneal cavity and fluid was collected. The patient tolerated the procedure well and left the ultrasound suite in stable condition. CONCLUSION: Uncomplicated ultrasound guided paracentesis. Jean-Claude Dawson MD on April 15, 2017 at 16:42 Board Certified Radiologist. This report was verified electronically.
--- NOTE | 2017-04-15 20:28 | HHI.GIFU ---
Subjective Remarks Patient was seen and examined, laying in bed seems to be comfortable, a little bit drowsy, feeling better since he had paracentesis, no sign of active bleed Objective Vitals I&O Vital Signs Date Time Temp Pulse Resp B/P (MAP) Pulse Ox O2 Delivery O2 Flow Rate FiO2 04/15/17 16:00 98.9 94 18 100/70 (80) 91 04/15/17 12:00 98.7 91 20 106/68 (81) 92 04/15/17 08:00 91 04/15/17 08:00 99.0 90 18 127/66 (86) 94 04/15/17 04:03 100.8 97 14 116/67 (83) 94 04/15/17 00:12 100.4 98 22 147/77 (100) 97 04/14/17 22:01 99 04/14/17 20:44 98.7 96 18 119/75 (90) 98 I/O 04/14/17 04/14/17 04/14/17 04/15/17 04/15/17 04/15/17 07:00 15:00 23:00 07:00 15:00 23:00 Intake Total 340 ml 480 ml 240 ml Output Total 400 ml 200 ml 400 ml Balance -60 ml -200 ml 480 ml -160 ml Intake Oral 240 ml 480 ml 240 ml IV Total 100 ml Output Urine Total 400 ml 200 ml 400 ml # Voids 3 2 3 # Bowel Movements 0 Laboratory Laboratory Tests Test 04/15/17 05:57 White Blood Count 7.6 Red Blood Count 2.70 Hemoglobin 10.3 Hematocrit 31.4 Mean Corpuscular Volume 116.2 Mean Corpuscular Hemoglobin 38.3 Mean Corpuscular Hemoglobin Concent 33.0 Red Cell Distribution Width 13.6 Platelet Count 76 Mean Platelet Volume 7.7 CBC Comment AUTO DIFF Differential Total Cells Counted 100 Neutrophils % (Manual) 71 Band Neutrophils % 1 Lymphocytes % 15 Monocytes % 12 Neutrophils # (Manual) 5.5 Myelocytes 1 Differential Comment FINAL DIFF MANUAL Platelet Estimate NORMAL Platelet Morphology Comment NORMAL Prothrombin Time 17.5 Prothromb Time International Ratio 1.6 Blood Urea Nitrogen 16 Creatinine 1.20 Random Glucose 141 Total Protein 6.0 Albumin 2.0 Calcium Level 7.4 Alkaline Phosphatase 103 Aspartate Amino Transf (AST/SGOT) 58 Alanine Aminotransferase (ALT/SGPT) 18 Total Bilirubin 3.7 Sodium Level 133 Potassium Level 3.6 Chloride Level 98 Carbon Dioxide Level 27.0 Anion Gap 8 Estimat Glomerular Filtration Rate 62 Protein Corrected Calcium 8.0 Ammonia 56 Date/Time Source Procedure Growth Status 04/13/17 23:20 Blood Peripheral Aerobic Blood Culture - Preliminary NO GROWTH IN 2 DAYS Resulted 04/13/17 23:20 Blood Peripheral Anaerobic Blood Culture - Preliminary NO GROWTH IN 2 DAYS Resulted 04/14/17 17:01 Fluid Peritoneal Fluid Gram Stain - Final Resulted 04/14/17 17:01 Fluid Peritoneal Fluid Body Fluid Culture - Preliminary NO GROWTH IN 24 HOURS. Resulted Physical Exam Laboratory Tests Test 04/13/17 23:15 04/14/17 04:00 04/14/17 14:00 04/14/17 17:01 White Blood Count 8.5 TH/MM3 Red Blood Count 3.07 MIL/MM3 Hemoglobin 12.3 GM/DL Hematocrit 36.1 % Mean Corpuscular Volume 117.5 FL Mean Corpuscular Hemoglobin 39.9 PG Mean Corpuscular Hemoglobin Concent 34.0 % Red Cell Distribution Width 13.9 % Platelet Count 78 TH/MM3 Mean Platelet Volume 8.2 FL CBC Comment AUTO DIFF Differential Total Cells Counted 100 Neutrophils % (Manual) 80 % Band Neutrophils % 4 % Lymphocytes % 3 % Monocytes % 11 % Eosinophils % 1 % Basophils % 1 % Neutrophils # (Manual) 7.1 TH/MM3 Differential Comment FINAL DIFF MANUAL Platelet Estimate LOW Platelet Morphology Comment NORMAL Prothrombin Time 16.5 SEC Prothromb Time International Ratio 1.5 RATIO Activated Partial Thromboplast Time 35.5 SEC Blood Urea Nitrogen 15 MG/DL Creatinine 1.10 MG/DL Random Glucose 115 MG/DL Total Protein 6.9 GM/DL Albumin 2.1 GM/DL Calcium Level 8.2 MG/DL Magnesium Level 2.0 MG/DL Alkaline Phosphatase 118 U/L Aspartate Amino Transf (AST/SGOT) 44 U/L Alanine Aminotransferase (ALT/SGPT) 17 U/L Lactate Dehydrogenase 136 U/L Total Bilirubin 5.9 MG/DL Sodium Level 131 MEQ/L Potassium Level 3.7 MEQ/L Chloride Level 96 MEQ/L Carbon Dioxide Level 25.0 MEQ/L Anion Gap 10 MEQ/L Estimat Glomerular Filtration Rate 69 ML/MIN Lactic Acid Level 2.1 mmol/L Ammonia 41 MCMOL/L Total Creatine Kinase 49 U/L Troponin I LESS THAN 0.02 NG/ML Lipase 116 U/L Ethyl Alcohol Level LESS THAN 3 MG/DL Urine Color ORANGE Urine Turbidity CLEAR Urine pH 5.5 Urine Specific [place] GREATER THAN 1.035 Urine Protein NEG mg/dL Urine Glucose (UA) NEG mg/dL Urine Ketones NEG mg/dL Urine Occult Blood NEG Urine Nitrite NEG Urine Bilirubin NEG Urine Leukocyte Esterase NEG Urine RBC 0-3 /hpf Urine WBC 0-2 /hpf Urine Squamous Epithelial Cells 0-5 /hpf Urine Bacteria NONE /hpf Microscopic Urinalysis Comment CULT NOT INDICATED Urine Opiates Screen NEG Urine Barbiturates Screen NEG Urine Amphetamines Screen NEG Urine Benzodiazepines Screen POS Urine Cocaine Screen NEG Urine Cannabinoids Screen NEG Tumor Marker Alpha Fetoprotein 3.0 NG/ML Peritoneal Fluid WBC 1200 /MM3 Peritoneal Fluid RBC 4350 /MM3 Peritoneal Fluid Neutrophils 57 % Peritoneal Fluid Lymphocytes 15 % Peritoneal Fluid Monocytes 4 % Peritoneal Fluid Eosinophils 1 % Peritoneal Fluid Histiocytes 21 % Peritoneal Fluid Mesothelial Cells 2 % Peritoneal Fluid Total Protein 1.8 GM/DL Peritoneal Fluid Albumin 0.7 G/DL Peritoneal Fluid LDH 74 U/L Peritoneal Fluid Glucose 96 MG/DL Test 04/15/17 05:57 White Blood Count 7.6 TH/MM3 Red Blood Count 2.70 MIL/MM3 Hemoglobin 10.3 GM/DL Hematocrit 31.4 % Mean Corpuscular Volume 116.2 FL Mean Corpuscular Hemoglobin 38.3 PG Mean Corpuscular Hemoglobin Concent 33.0 % Red Cell Distribution Width 13.6 % Platelet Count 76 TH/MM3 Mean Platelet Volume 7.7 FL CBC Comment AUTO DIFF Differential Total Cells Counted 100 Neutrophils % (Manual) 71 % Band Neutrophils % 1 % Lymphocytes % 15 % Monocytes % 12 % Neutrophils # (Manual) 5.5 TH/MM3 Myelocytes 1 % Differential Comment FINAL DIFF MANUAL Platelet Estimate NORMAL Platelet Morphology Comment NORMAL Prothrombin Time 17.5 SEC Prothromb Time International Ratio 1.6 RATIO Blood Urea Nitrogen 16 MG/DL Creatinine 1.20 MG/DL Random Glucose 141 MG/DL Total Protein 6.0 GM/DL Albumin 2.0 GM/DL Calcium Level 7.4 MG/DL Alkaline Phosphatase 103 U/L Aspartate Amino Transf (AST/SGOT) 58 U/L Alanine Aminotransferase (ALT/SGPT) 18 U/L Total Bilirubin 3.7 MG/DL Sodium Level 133 MEQ/L Potassium Level 3.6 MEQ/L Chloride Level 98 MEQ/L Carbon Dioxide Level 27.0 MEQ/L Anion Gap 8 MEQ/L Estimat Glomerular Filtration Rate 62 ML/MIN Protein Corrected Calcium 8.0 MG/DL Ammonia 56 MCMOL/L HEENT: Pupils round and reactive to light; normocephalic; atraumatic; jaundice. Throat is clear. NECK: Neck is supple, no JVD, no lymphadenopathy. CHEST: Chest is clear to auscultation and percussion. CARDIAC: Regular rate and rhythm with no murmur gallop or rubs. ABDOMEN: Soft, distended with ascites, moderate diffuse tenderness; no hepatosplenomegaly; bowel sounds are present in all four quadrants. EXTREMITIES: No clubbing, cyanosis, or edema. SKIN: Normal; no rash; jaundice. 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 Assessment and Plan Plan Patient is 56-year-old male with multiple colonic alcohol-induced cirrhosis with ascites that [place] and is more than 1.1 consistent with portal hypertension. Also his ascitic fluid positive for white count consistent with SBP. Patient also has few lesion in the liver but his alpha-fetoprotein was normal Recommendation Continue antibiotics for SBP No alcohol MRI for further evaluation of the liver masses We might need to start long-term diuretics Follow ammonia level Overall guarded prognosis Jose Alfredo Webber MD Apr 15, 2017 20:28
[2017-04-15] MEDS: LACTULOSE SYRUP 20 GM/30 ML CUP PO SCH (21:02)
[2017-04-16] VITALS (9 sets, daily range): BP systolic 118–136; BP diastolic 58–77; PULSE 63–97; RESP 12–20; TEMP 97.7–98.7; O2SAT 94–97
[2017-04-16] MEDS: LACTULOSE SYRUP 20 GM/30 ML CUP PO SCH ×2 (08:04→21:28)
[2017-04-16] MEDS: THIAMINE HCL 100 MG TAB PO SCH (08:04)
[2017-04-16] MEDS: MULTIVITAMINS/MINERALS THERAPEUTIC TAB PO SCH (08:04)
[2017-04-16] MEDS: FOLIC ACID 1 MG TAB PO SCH (08:05)
[2017-04-16] MEDS: FUROSEMIDE 40 MG TAB PO SCH (08:05)
[2017-04-16] MEDS: SODIUM CHLORIDE 0.9% FLUSH 10 ML FLUSH IV FLUSH SCH ×2 (08:05→21:28)
[2017-04-16] MEDS: PANTOPRAZOLE SOD 40 MG DELAYED RELEASE TAB PO SCH (08:05)
[2017-04-16] MEDS: SPIRONOLACTONE 50 MG TAB PO SCH ×2 (08:05→16:29)
[2017-04-16] MEDS ORDERED: MAGNESIUM HYDROXIDE SUSP 30 ML CUP PO PRN (12:15)
[2017-04-16] MEDS ORDERED: LACTULOSE SYRUP 20 GM/30 ML CUP PO PRN (12:15)
[2017-04-16] MEDS ORDERED: SENNOSIDES 8.6 MG TAB PO PRN (12:15)
[2017-04-16] MEDS ORDERED: BISACODYL 10 MG SUPP RECTAL PRN (12:15)
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
[2017-04-16] MEDS: LEVOFLOXACIN 750 MG PREMIX INJ 150 ML IV SCH (12:31)
--- NOTE | 2017-04-16 13:37 | RADRPT ---
EXAM DATE/TIME: 04/16/2017 13:18 [place] COMPARISON: No previous studies available for comparison. INDICATIONS : Possible chest mass RADIATION DOSE: 16.80 CTDIvol (mGy) MEDICAL HISTORY : Cardiovascular disease. Hypertension. Chronic obstructive pulmonary disease. Liver disease SURGICAL HISTORY : None. ENCOUNTER: Subsequent ACUITY: 4 - 6 days PAIN SCALE: 2/10 LOCATION: chest TECHNIQUE: Volumetric scanning of the chest was performed. Using automated exposure control and adjustment of t he mA and/or kV according to patient size, radiation dose was kept as low as reasonably achievable to obtain optimal diagnostic quality images. DICOM format image data is available electronically for r eview and comparison. Follow-up recommendations for detected pulmonary nodules are based at a minimum on nodule size and pa tient risk factors according to Fleischner Society Guidelines. FINDINGS: LUNGS: There is no consolidation or pneumothorax. No concerning pulmonary nodule is visualized. PLEURAE: There is no pleural thickening or pleural effusion. MEDIASTINUM: The heart and great vessels demonstrate no acute abnormality. There is no mediastinal or hilar lymph adenopathy. AXILLAE: Within normal limits. No lymphadenopathy. MUSCULOSKELETAL: Within normal limits for patient age. MISCELLANEOUS: Free fluid surrounding the liver and spleen are identified in the peritoneal cavity. CONCLUSION: 1. No evidence of suspicious mass or malignant lymphadenopathy. 2. No evidence of acute cardia pulmonary process. 3. Ascites Yayo Fox MD on April 16, 2017 at 13:34 Board Certified Radiologist. This report was verified electronically.
--- NOTE | 2017-04-16 16:35 | HHI.GIFU ---
Subjective Remarks Patient was seen and examined, feels slightly better but still complaining of abdominal discomfort and pain from time to time. Abdomen still distended. No sign of active bleed Objective Vitals I&O Vital Signs Date Time Temp Pulse Resp B/P (MAP) Pulse Ox O2 Delivery O2 Flow Rate FiO2 04/16/17 16:00 98.3 85 20 124/65 (84) 96 04/16/17 12:00 98.0 84 20 125/65 (85) 96 04/16/17 09:11 63 04/16/17 08:00 94 21 04/16/17 08:00 98.1 82 20 124/63 (83) 95 04/16/17 05:36 98.6 97 14 126/77 (93) 97 04/16/17 00:03 98.7 91 12 136/63 (87) 96 04/15/17 20:03 98.8 89 12 116/65 (82) 94 04/15/17 20:00 83 04/15/17 20:00 94 21 I/O 04/15/17 04/15/17 04/15/17 04/16/17 04/16/17 04/16/17 06:59 14:59 22:59 06:59 14:59 22:59 Intake Total 480 ml 240 ml Output Total 400 ml Balance 480 ml -160 ml Intake Oral 480 ml 240 ml Output Urine Total 400 ml # Voids 2 3 2 # Bowel Movements 0 Laboratory Date/Time Source Procedure Growth Status 04/13/17 23:20 Blood Peripheral Aerobic Blood Culture - Preliminary NO GROWTH IN 3 DAYS Resulted 04/13/17 23:20 Blood Peripheral Anaerobic Blood Culture - Preliminary NO GROWTH IN 3 DAYS Resulted 04/14/17 17:01 Fluid Peritoneal Fluid Gram Stain - Final Resulted 04/14/17 17:01 Fluid Peritoneal Fluid Body Fluid Culture - Preliminary NO GROWTH IN 48 HOURS. Resulted Physical Exam Laboratory Tests Test 04/13/17 23:15 04/14/17 04:00 04/14/17 14:00 04/14/17 17:01 White Blood Count 8.5 TH/MM3 Red Blood Count 3.07 MIL/MM3 Hemoglobin 12.3 GM/DL Hematocrit 36.1 % Mean Corpuscular Volume 117.5 FL Mean Corpuscular Hemoglobin 39.9 PG Mean Corpuscular Hemoglobin Concent 34.0 % Red Cell Distribution Width 13.9 % Platelet Count 78 TH/MM3 Mean Platelet Volume 8.2 FL CBC Comment AUTO DIFF Differential Total Cells Counted 100 Neutrophils % (Manual) 80 % Band Neutrophils % 4 % Lymphocytes % 3 % Monocytes % 11 % Eosinophils % 1 % Basophils % 1 % Neutrophils # (Manual) 7.1 TH/MM3 Differential Comment FINAL DIFF MANUAL Platelet Estimate LOW Platelet Morphology Comment NORMAL Prothrombin Time 16.5 SEC Prothromb Time International Ratio 1.5 RATIO Activated Partial Thromboplast Time 35.5 SEC Blood Urea Nitrogen 15 MG/DL Creatinine 1.10 MG/DL Random Glucose 115 MG/DL Total Protein 6.9 GM/DL Albumin 2.1 GM/DL Calcium Level 8.2 MG/DL Magnesium Level 2.0 MG/DL Alkaline Phosphatase 118 U/L Aspartate Amino Transf (AST/SGOT) 44 U/L Alanine Aminotransferase (ALT/SGPT) 17 U/L Lactate Dehydrogenase 136 U/L Total Bilirubin 5.9 MG/DL Sodium Level 131 MEQ/L Potassium Level 3.7 MEQ/L Chloride Level 96 MEQ/L Carbon Dioxide Level 25.0 MEQ/L Anion Gap 10 MEQ/L Estimat Glomerular Filtration Rate 69 ML/MIN Lactic Acid Level 2.1 mmol/L Ammonia 41 MCMOL/L Total Creatine Kinase 49 U/L Troponin I LESS THAN 0.02 NG/ML Lipase 116 U/L Ethyl Alcohol Level LESS THAN 3 MG/DL Urine Color ORANGE Urine Turbidity CLEAR Urine pH 5.5 Urine Specific [place] GREATER THAN 1.035 Urine Protein NEG mg/dL Urine Glucose (UA) NEG mg/dL Urine Ketones NEG mg/dL Urine Occult Blood NEG Urine Nitrite NEG Urine Bilirubin NEG Urine Leukocyte Esterase NEG Urine RBC 0-3 /hpf Urine WBC 0-2 /hpf Urine Squamous Epithelial Cells 0-5 /hpf Urine Bacteria NONE /hpf Microscopic Urinalysis Comment CULT NOT INDICATED Urine Opiates Screen NEG Urine Barbiturates Screen NEG Urine Amphetamines Screen NEG Urine Benzodiazepines Screen POS Urine Cocaine Screen NEG Urine Cannabinoids Screen NEG Tumor Marker Alpha Fetoprotein 3.0 NG/ML Peritoneal Fluid WBC 1200 /MM3 Peritoneal Fluid RBC 4350 /MM3 Peritoneal Fluid Neutrophils 57 % Peritoneal Fluid Lymphocytes 15 % Peritoneal Fluid Monocytes 4 % Peritoneal Fluid Eosinophils 1 % Peritoneal Fluid Histiocytes 21 % Peritoneal Fluid Mesothelial Cells 2 % Peritoneal Fluid Total Protein 1.8 GM/DL Peritoneal Fluid Albumin 0.7 G/DL Peritoneal Fluid LDH 74 U/L Peritoneal Fluid Glucose 96 MG/DL Test 04/15/17 05:57 White Blood Count 7.6 TH/MM3 Red Blood Count 2.70 MIL/MM3 Hemoglobin 10.3 GM/DL Hematocrit 31.4 % Mean Corpuscular Volume 116.2 FL Mean Corpuscular Hemoglobin 38.3 PG Mean Corpuscular Hemoglobin Concent 33.0 % Red Cell Distribution Width 13.6 % Platelet Count 76 TH/MM3 Mean Platelet Volume 7.7 FL CBC Comment AUTO DIFF Differential Total Cells Counted 100 Neutrophils % (Manual) 71 % Band Neutrophils % 1 % Lymphocytes % 15 % Monocytes % 12 % Neutrophils # (Manual) 5.5 TH/MM3 Myelocytes 1 % Differential Comment FINAL DIFF MANUAL Platelet Estimate NORMAL Platelet Morphology Comment NORMAL Prothrombin Time 17.5 SEC Prothromb Time International Ratio 1.6 RATIO Blood Urea Nitrogen 16 MG/DL Creatinine 1.20 MG/DL Random Glucose 141 MG/DL Total Protein 6.0 GM/DL Albumin 2.0 GM/DL Calcium Level 7.4 MG/DL Alkaline Phosphatase 103 U/L Aspartate Amino Transf (AST/SGOT) 58 U/L Alanine Aminotransferase (ALT/SGPT) 18 U/L Total Bilirubin 3.7 MG/DL Sodium Level 133 MEQ/L Potassium Level 3.6 MEQ/L Chloride Level 98 MEQ/L Carbon Dioxide Level 27.0 MEQ/L Anion Gap 8 MEQ/L Estimat Glomerular Filtration Rate 62 ML/MIN Protein Corrected Calcium 8.0 MG/DL Ammonia 56 MCMOL/L HEENT: Pupils round and reactive to light; normocephalic; atraumatic; still jaundice jaundice. Throat is clear. NECK: Neck is supple, no JVD, no lymphadenopathy. CHEST: Chest is clear to auscultation and percussion. CARDIAC: Regular rate and rhythm with no murmur gallop or rubs. ABDOMEN: Soft, distended with ascites, moderate diffuse tenderness; no hepatosplenomegaly; bowel sounds are present in all four quadrants. EXTREMITIES: No clubbing, cyanosis, or edema. SKIN: Normal; no rash; jaundice. 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 Assessment and Plan Plan Patient is 56-year-old male with multiple colonic alcohol-induced cirrhosis with ascites that [place] and is more than 1.1 consistent with portal hypertension. Also his ascitic fluid positive for white count consistent with SBP. Patient also has few lesion in the liver but his alpha-fetoprotein was normal 04/16/2017 patient without significant changes, still on antibiotic, still mild abdominal pain, no GI bleed Recommendation Continue antibiotics for SBP No alcohol MRI for further evaluation of the liver masses could be done as an outpatient We will address his pain We might need to start long-term diuretics Follow ammonia level Overall guarded prognosis Jose Alfredo Webber MD Apr 16, 2017 16:35
[2017-04-16] MEDS: DOCUSATE SODIUM 50 MG/SENNA 8.6 MG TAB PO SCH (21:28)
[2017-04-16] MEDS: LORazepam 1 MG TAB PO PRN (21:59)
[2017-04-17] VITALS (7 sets, daily range): BP systolic 117–142; BP diastolic 71–101; PULSE 85–94; RESP 20–22; TEMP 96.9–98.3; O2SAT 94–98
[2017-04-17] MEDS: LORazepam 1 MG TAB PO PRN (05:27)
[2017-04-17 06:39] LABS: AUTOMATED NEUTROPHIL # 5.3 TH/MM3 (1.8-7.7); BASOPHIL % 0.5 % (0.0-2.0); EOSINOPHIL # 0.3 TH/MM3 (0-0.4); EOSINOPHIL % 3.2 % (0.0-4.0); HEMATOCRIT 32.8 % (39.0-51.0); LYMPH % 17.8 % (9.0-44.0); LYMPHOCYTE # 1.5 TH/MM3 (1.0-4.8); MEAN CELL VOLUME 117.3 FL (80.0-100.0); MEAN CORPUSCULAR HEMOGLOBIN 38.6 PG (27.0-34.0); MEAN CORPUSCULAR HGB CONC 32.9 % (32.0-36.0); MONO % 13.1 % (0.0-8.0); NEUT % 65.4 % (16.0-70.0); PLATELET COUNT 99 TH/MM3 (150-450); RED CELL DISTRIBUTION WIDTH 14.2 % (11.6-17.2); WHITE BLOOD COUNT 8.2 TH/MM3 (4.0-11.0)
[2017-04-17 06:47] LABS: HEMO FLAGS DIFF FINAL
[2017-04-17 06:59] LABS: CHLORIDE 96 MEQ/L (98-107); INTERNATIONAL NORMALIZED RATIO 1.5 RATIO; POTASSIUM 3.3 MEQ/L (3.5-5.1); PROTHROMBIN TIME - PATIENT 17.3 SEC (9.8-11.6); SODIUM (NA) 132 MEQ/L (136-145)
[2017-04-17 07:03] LABS: ANION GAP 8 MEQ/L (5-15); BICARBONATE 27.8 MEQ/L (21.0-32.0); BLOOD UREA NITROGEN 14 MG/DL (7-18)
[2017-04-17 07:06] LABS: ALT (GPT) 25 U/L (12-78); AST (GOT) 58 U/L (15-37); GLOMERULAR FILTRATION RATE 77 ML/MIN (>89)
[2017-04-17 07:08] LABS: TOTAL BILIRUBIN ADULT 4.5 MG/DL (0.2-1.0)
[2017-04-17 07:09] LABS: ALKALINE PHOSPHATASE 109 U/L (45-117)
[2017-04-17] MEDS ORDERED: POTASSIUM CHLORIDE 10 MEQ CONTROLLED RELEASE TAB PO ONE (09:00)
[2017-04-17] MEDS: DOCUSATE SODIUM 50 MG/SENNA 8.6 MG TAB PO SCH ×2 (09:00→21:00)
[2017-04-17] MEDS: FOLIC ACID 1 MG TAB PO SCH (09:19)
[2017-04-17] MEDS: LACTULOSE SYRUP 20 GM/30 ML CUP PO SCH ×2 (09:19→21:51)
[2017-04-17] MEDS: MULTIVITAMINS/MINERALS THERAPEUTIC TAB PO SCH (09:19)
[2017-04-17] MEDS: THIAMINE HCL 100 MG TAB PO SCH (09:19)
[2017-04-17] MEDS: PANTOPRAZOLE SOD 40 MG DELAYED RELEASE TAB PO SCH (09:20)
[2017-04-17] MEDS: SODIUM CHLORIDE 0.9% FLUSH 10 ML FLUSH IV FLUSH SCH ×2 (09:20→21:51)
[2017-04-17] MEDS: SPIRONOLACTONE 50 MG TAB PO SCH ×2 (09:20→17:32)
[2017-04-17] MEDS: FUROSEMIDE 40 MG TAB PO SCH (09:36)
--- NOTE | 2017-04-17 13:06 | HHI.GIFU ---
Subjective Remarks Patient was very sleepy this morning, when I wake him up she started complaining that we were not giving him and off pain medicine. He still complain of abdominal discomfort Objective Vitals I&O Vital Signs Date Time Temp Pulse Resp B/P (MAP) Pulse Ox O2 Delivery O2 Flow Rate FiO2 04/17/17 12:00 98.3 85 20 140/80 (100) 98 04/17/17 11:04 18 04/17/17 08:00 98.2 88 22 142/82 (102) 97 04/17/17 04:00 98.0 93 20 117/74 (88) 94 04/17/17 00:00 97.3 94 20 137/101 (113) 95 04/16/17 21:00 88 04/16/17 20:00 96 21 04/16/17 16:00 98.3 85 20 124/65 (84) 96 I/O 04/16/17 04/16/17 04/16/17 04/17/17 04/17/17 04/17/17 07:00 15:00 23:00 07:00 15:00 23:00 Intake Total 460 ml Balance 460 ml Intake Oral 460 ml # Voids 2 2 3 # Bowel Movements 3 Laboratory Laboratory Tests Test 04/17/17 06:17 White Blood Count 8.2 Red Blood Count 2.80 Hemoglobin 10.8 Hematocrit 32.8 Mean Corpuscular Volume 117.3 Mean Corpuscular Hemoglobin 38.6 Mean Corpuscular Hemoglobin Concent 32.9 Red Cell Distribution Width 14.2 Platelet Count 99 Mean Platelet Volume 7.5 Neutrophils (%) (Auto) 65.4 Lymphocytes (%) (Auto) 17.8 Monocytes (%) (Auto) 13.1 Eosinophils (%) (Auto) 3.2 Basophils (%) (Auto) 0.5 Neutrophils # (Auto) 5.3 Lymphocytes # (Auto) 1.5 Monocytes # (Auto) 1.1 Eosinophils # (Auto) 0.3 Basophils # (Auto) 0.0 CBC Comment DIFF FINAL Differential Comment Prothrombin Time 17.3 Prothromb Time International Ratio 1.5 Blood Urea Nitrogen 14 Creatinine 1.00 Random Glucose 125 Total Protein 6.9 Albumin 2.2 Calcium Level 7.8 Alkaline Phosphatase 109 Aspartate Amino Transf (AST/SGOT) 58 Alanine Aminotransferase (ALT/SGPT) 25 Total Bilirubin 4.5 Sodium Level 132 Potassium Level 3.3 Chloride Level 96 Carbon Dioxide Level 27.8 Anion Gap 8 Estimat Glomerular Filtration Rate 77 Ammonia 39 Date/Time Source Procedure Growth Status 04/13/17 23:20 Blood Peripheral Aerobic Blood Culture - Preliminary NO GROWTH IN 4 DAYS Resulted 04/13/17 23:20 Blood Peripheral Anaerobic Blood Culture - Preliminary NO GROWTH IN 4 DAYS Resulted 04/14/17 17:01 Fluid Peritoneal Fluid Gram Stain - Final Complete 04/14/17 17:01 Fluid Peritoneal Fluid Body Fluid Culture - Final NO GROWTH IN 72 HRS.--AEROBICALLY OR ... Complete Physical Exam Laboratory Tests Test 04/13/17 23:15 04/14/17 04:00 04/14/17 14:00 04/14/17 17:01 White Blood Count 8.5 TH/MM3 Red Blood Count 3.07 MIL/MM3 Hemoglobin 12.3 GM/DL Hematocrit 36.1 % Mean Corpuscular Volume 117.5 FL Mean Corpuscular Hemoglobin 39.9 PG Mean Corpuscular Hemoglobin Concent 34.0 % Red Cell Distribution Width 13.9 % Platelet Count 78 TH/MM3 Mean Platelet Volume 8.2 FL CBC Comment AUTO DIFF Differential Total Cells Counted 100 Neutrophils % (Manual) 80 % Band Neutrophils % 4 % Lymphocytes % 3 % Monocytes % 11 % Eosinophils % 1 % Basophils % 1 % Neutrophils # (Manual) 7.1 TH/MM3 Differential Comment FINAL DIFF MANUAL Platelet Estimate LOW Platelet Morphology Comment NORMAL Prothrombin Time 16.5 SEC Prothromb Time International Ratio 1.5 RATIO Activated Partial Thromboplast Time 35.5 SEC Blood Urea Nitrogen 15 MG/DL Creatinine 1.10 MG/DL Random Glucose 115 MG/DL Total Protein 6.9 GM/DL Albumin 2.1 GM/DL Calcium Level 8.2 MG/DL Magnesium Level 2.0 MG/DL Alkaline Phosphatase 118 U/L Aspartate Amino Transf (AST/SGOT) 44 U/L Alanine Aminotransferase (ALT/SGPT) 17 U/L Lactate Dehydrogenase 136 U/L Total Bilirubin 5.9 MG/DL Sodium Level 131 MEQ/L Potassium Level 3.7 MEQ/L Chloride Level 96 MEQ/L Carbon Dioxide Level 25.0 MEQ/L Anion Gap 10 MEQ/L Estimat Glomerular Filtration Rate 69 ML/MIN Lactic Acid Level 2.1 mmol/L Ammonia 41 MCMOL/L Total Creatine Kinase 49 U/L Troponin I LESS THAN 0.02 NG/ML Lipase 116 U/L Ethyl Alcohol Level LESS THAN 3 MG/DL Urine Color ORANGE Urine Turbidity CLEAR Urine pH 5.5 Urine Specific [place] GREATER THAN 1.035 Urine Protein NEG mg/dL Urine Glucose (UA) NEG mg/dL Urine Ketones NEG mg/dL Urine Occult Blood NEG Urine Nitrite NEG Urine Bilirubin NEG Urine Leukocyte Esterase NEG Urine RBC 0-3 /hpf Urine WBC 0-2 /hpf Urine Squamous Epithelial Cells 0-5 /hpf Urine Bacteria NONE /hpf Microscopic Urinalysis Comment CULT NOT INDICATED Urine Opiates Screen NEG Urine Barbiturates Screen NEG Urine Amphetamines Screen NEG Urine Benzodiazepines Screen POS Urine Cocaine Screen NEG Urine Cannabinoids Screen NEG Tumor Marker Alpha Fetoprotein 3.0 NG/ML Peritoneal Fluid WBC 1200 /MM3 Peritoneal Fluid RBC 4350 /MM3 Peritoneal Fluid Neutrophils 57 % Peritoneal Fluid Lymphocytes 15 % Peritoneal Fluid Monocytes 4 % Peritoneal Fluid Eosinophils 1 % Peritoneal Fluid Histiocytes 21 % Peritoneal Fluid Mesothelial Cells 2 % Peritoneal Fluid Total Protein 1.8 GM/DL Peritoneal Fluid Albumin 0.7 G/DL Peritoneal Fluid LDH 74 U/L Peritoneal Fluid Glucose 96 MG/DL Test 04/15/17 05:57 White Blood Count 7.6 TH/MM3 Red Blood Count 2.70 MIL/MM3 Hemoglobin 10.3 GM/DL Hematocrit 31.4 % Mean Corpuscular Volume 116.2 FL Mean Corpuscular Hemoglobin 38.3 PG Mean Corpuscular Hemoglobin Concent 33.0 % Red Cell Distribution Width 13.6 % Platelet Count 76 TH/MM3 Mean Platelet Volume 7.7 FL CBC Comment AUTO DIFF Differential Total Cells Counted 100 Neutrophils % (Manual) 71 % Band Neutrophils % 1 % Lymphocytes % 15 % Monocytes % 12 % Neutrophils # (Manual) 5.5 TH/MM3 Myelocytes 1 % Differential Comment FINAL DIFF MANUAL Platelet Estimate NORMAL Platelet Morphology Comment NORMAL Prothrombin Time 17.5 SEC Prothromb Time International Ratio 1.6 RATIO Blood Urea Nitrogen 16 MG/DL Creatinine 1.20 MG/DL Random Glucose 141 MG/DL Total Protein 6.0 GM/DL Albumin 2.0 GM/DL Calcium Level 7.4 MG/DL Alkaline Phosphatase 103 U/L Aspartate Amino Transf (AST/SGOT) 58 U/L Alanine Aminotransferase (ALT/SGPT) 18 U/L Total Bilirubin 3.7 MG/DL Sodium Level 133 MEQ/L Potassium Level 3.6 MEQ/L Chloride Level 98 MEQ/L Carbon Dioxide Level 27.0 MEQ/L Anion Gap 8 MEQ/L Estimat Glomerular Filtration Rate 62 ML/MIN Protein Corrected Calcium 8.0 MG/DL Ammonia 56 MCMOL/L HEENT: Pupils round and reactive to light; normocephalic; atraumatic; still jaundice jaundice. Throat is clear. NECK: Neck is supple, no JVD, no lymphadenopathy. CHEST: Chest is clear to auscultation and percussion. CARDIAC: Regular rate and rhythm with no murmur gallop or rubs. ABDOMEN: Soft, distended with ascites, moderate diffuse tenderness; no hepatosplenomegaly; bowel sounds are present in all four quadrants. EXTREMITIES: No clubbing, cyanosis, or edema. SKIN: Normal; no rash; jaundice. [employer]: No focal deficits; alert and oriented times three but very sleepy. Assessment and Plan Plan Patient is 56-year-old male with multiple colonic alcohol-induced cirrhosis with ascites that [place] and is more than 1.1 consistent with portal hypertension. Also his ascitic fluid positive for white count consistent with SBP. Patient also has few lesion in the liver but his alpha-fetoprotein was normal 04/16/2017 patient without significant changes, still on antibiotic, still mild abdominal pain, no GI bleed 04/17/2017 patient is very sleepy still complaining of pain, angry about having an MRI no GI bleed Recommendation Continue antibiotics for SBP No alcohol MRI for further evaluation of the liver masses could be done as an outpatient We might need to start long-term diuretics Follow ammonia level Jose Alfredo Webber MD Apr 17, 2017 13:06
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
[2017-04-17] MEDS: LEVOFLOXACIN 750 MG PREMIX INJ 150 ML IV SCH (13:38)
--- NOTE | 2017-04-17 16:19 | RADRPT ---
EXAM DATE/TIME: 04/17/2017 00:00 COMPARISON: CT ABDOMEN & PELVIS W CONTRAST, April 14, 2017, 0:11. CONSULTATION: I have been asked to perform AP or symptoms this and percutaneous biopsy in this patient with cirrhos is and tense ascites. Paracentesis will be performed. Biopsy of the lesion deep in the right lobe of the liver would be di fficult with significant risk of bleeding. Correlation with alpha-fetoprotein and MRI may be helpful. If this is indeed hepatoma this would rep resent multifocal disease and atherosclerotic liver. Thank you this consultation. Ishmael Dunaway MD FACR on April 17, 2017 at 16:13 Board Certified Radiologist. This report was verified electronically.
[2017-04-17] MEDS: diphenhydrAMINE HCL 25 MG CAP PO PRN (22:00)
[2017-04-18] VITALS: BP 119/73; PULSE 83; RESP 16; TEMP 96.9; O2SAT 94
[2017-04-18 04:00] VITALS: BP 123/71; PULSE 86; RESP 16; TEMP 97.1; O2SAT 94
[2017-04-18 07:36] LABS: CHLORIDE 94 MEQ/L (98-107); POTASSIUM 3.3 MEQ/L (3.5-5.1); SODIUM (NA) 132 MEQ/L (136-145)
[2017-04-18 07:42] LABS: ANION GAP 9 MEQ/L (5-15); BICARBONATE 29.5 MEQ/L (21.0-32.0)
[2017-04-18 07:43] LABS: BLOOD UREA NITROGEN 15 MG/DL (7-18)
[2017-04-18 07:46] LABS: AST (GOT) 50 U/L (15-37); GLOMERULAR FILTRATION RATE 81 ML/MIN (>89)
[2017-04-18 07:47] LABS: TOTAL BILIRUBIN ADULT 3.9 MG/DL (0.2-1.0)
[2017-04-18 07:48] LABS: ALKALINE PHOSPHATASE 95 U/L (45-117); ALT (GPT) 21 U/L (12-78)
[2017-04-18 08:00] VITALS: BP 130/76; PULSE 95; PULSE 98; RESP 20; TEMP 98.7; O2SAT 94
[2017-04-18 08:36] LABS: AUTOMATED NEUTROPHIL # 5.2 TH/MM3 (1.8-7.7); BASOPHIL % 0.2 % (0.0-2.0); EOSINOPHIL # 0.2 TH/MM3 (0-0.4); EOSINOPHIL % 2.8 % (0.0-4.0); HEMATOCRIT 29.8 % (39.0-51.0); LYMPH % 15.6 % (9.0-44.0); LYMPHOCYTE # 1.2 TH/MM3 (1.0-4.8); MEAN CELL VOLUME 118.4 FL (80.0-100.0); MEAN CORPUSCULAR HEMOGLOBIN 39.9 PG (27.0-34.0); MEAN CORPUSCULAR HGB CONC 33.7 % (32.0-36.0); MONO % 11.3 % (0.0-8.0); NEUT % 70.1 % (16.0-70.0); PLATELET COUNT 77 TH/MM3 (150-450); RED BLOOD COUNT 2.52 MIL/MM3 (4.50-5.90); RED CELL DISTRIBUTION WIDTH 13.9 % (11.6-17.2); WHITE BLOOD COUNT 7.4 TH/MM3 (4.0-11.0)
[2017-04-18 08:42] LABS: HEMO FLAGS AUTO DIFF
[2017-04-18] MEDS: DOCUSATE SODIUM 50 MG/SENNA 8.6 MG TAB PO SCH ×2 (09:00→20:44)
[2017-04-18 09:02] LABS: INTERNATIONAL NORMALIZED RATIO 1.6 RATIO; PROTHROMBIN TIME - PATIENT 17.7 SEC (9.8-11.6)
[2017-04-18] MEDS: LACTULOSE SYRUP 20 GM/30 ML CUP PO SCH ×2 (09:22→20:44)
[2017-04-18] MEDS: PANTOPRAZOLE SOD 40 MG DELAYED RELEASE TAB PO SCH (09:22)
[2017-04-18] MEDS: FOLIC ACID 1 MG TAB PO SCH (09:22)
[2017-04-18] MEDS: MULTIVITAMINS/MINERALS THERAPEUTIC TAB PO SCH (09:23)
[2017-04-18] MEDS: FUROSEMIDE 40 MG TAB PO SCH (09:23)
[2017-04-18] MEDS: THIAMINE HCL 100 MG TAB PO SCH (09:23)
[2017-04-18] MEDS: SPIRONOLACTONE 50 MG TAB PO SCH ×2 (09:23→17:20)
[2017-04-18] MEDS: SODIUM CHLORIDE 0.9% FLUSH 10 ML FLUSH IV FLUSH SCH ×2 (09:24→20:44)
[2017-04-18] MEDS ORDERED: POTASSIUM CHLORIDE 10 MEQ CONTROLLED RELEASE TAB PO ONE (09:30)
[2017-04-18 09:35] LABS: PLATELET ESTIMATE SMEAR LOW (NORMAL); PLATELET MORPHOLOGY NORMAL (NORMAL); SCAN/DIFF AUTO DIFF CONFIRMED
[2017-04-18 12:00] VITALS: BP 144/75; PULSE 97; RESP 20; TEMP 98.1; O2SAT 95
[2017-04-18] MEDS: LEVOFLOXACIN 750 MG PREMIX INJ 150 ML IV SCH (12:23)
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
[2017-04-18] MEDS: LORazepam 1 MG TAB PO PRN (15:08)
[2017-04-18 16:00] VITALS: BP 110/72; PULSE 96; RESP 20; TEMP 98; O2SAT 95
[2017-04-18 20:00] VITALS: BP 111/75; PULSE 75; PULSE 96; RESP 20; TEMP 97.7; O2SAT 96
[2017-04-19] VITALS (7 sets, daily range): BP systolic 111–146; BP diastolic 68–80; PULSE 81–119; RESP 17–22; TEMP 97.1–98.5; O2SAT 92–96
[2017-04-19 06:58] LABS: BASOPHIL % 0.1 % (0.0-2.0); EOSINOPHIL # 0.2 TH/MM3 (0-0.4); HEMATOCRIT 30.2 % (39.0-51.0); LYMPH % 11.8 % (9.0-44.0); LYMPHOCYTE # 1.4 TH/MM3 (1.0-4.8); MEAN CELL VOLUME 117.2 FL (80.0-100.0); MEAN CORPUSCULAR HEMOGLOBIN 39.6 PG (27.0-34.0); MEAN CORPUSCULAR HGB CONC 33.8 % (32.0-36.0); NEUT % 77.1 % (16.0-70.0); PLATELET COUNT 97 TH/MM3 (150-450); RED BLOOD COUNT 2.58 MIL/MM3 (4.50-5.90); RED CELL DISTRIBUTION WIDTH 13.8 % (11.6-17.2); WHITE BLOOD COUNT 11.7 TH/MM3 (4.0-11.0)
[2017-04-19 07:02] LABS: CHLORIDE 95 MEQ/L (98-107); POTASSIUM 3.8 MEQ/L (3.5-5.1); SODIUM (NA) 131 MEQ/L (136-145)
[2017-04-19 07:06] LABS: ANION GAP 7 MEQ/L (5-15); BICARBONATE 28.7 MEQ/L (21.0-32.0)
[2017-04-19 07:07] LABS: BLOOD UREA NITROGEN 14 MG/DL (7-18); HEMO FLAGS AUTO DIFF
[2017-04-19 07:09] LABS: ALT (GPT) 24 U/L (12-78); AST (GOT) 52 U/L (15-37)
[2017-04-19 07:10] LABS: GLOMERULAR FILTRATION RATE 62 ML/MIN (>89)
[2017-04-19 07:11] LABS: TOTAL BILIRUBIN ADULT 4.1 MG/DL (0.2-1.0)
[2017-04-19 07:12] LABS: ALKALINE PHOSPHATASE 105 U/L (45-117)
[2017-04-19 07:44] LABS: PLATELET ESTIMATE SMEAR LOW (NORMAL); PLATELET MORPHOLOGY NORMAL (NORMAL); SCAN/DIFF AUTO DIFF CONFIRMED
[2017-04-19] MEDS: SODIUM CHLORIDE 0.9% FLUSH 10 ML FLUSH IV FLUSH SCH ×2 (09:31→20:52)
[2017-04-19] MEDS: DOCUSATE SODIUM 50 MG/SENNA 8.6 MG TAB PO SCH ×2 (09:32→20:52)
[2017-04-19] MEDS: SPIRONOLACTONE 50 MG TAB PO SCH ×2 (09:32→17:22)
[2017-04-19] MEDS: FUROSEMIDE 40 MG TAB PO SCH (09:33)
[2017-04-19] MEDS: LACTULOSE SYRUP 20 GM/30 ML CUP PO SCH ×2 (09:33→20:52)
[2017-04-19] MEDS: LORazepam 1 MG TAB PO PRN ×2 (09:44→17:22)
[2017-04-19] MEDS: LEVOFLOXACIN 750 MG TAB PO SCH (11:53)
--- NOTE | 2017-04-19 12:44 | HHI.GIFU ---
GI Follow-up Note Consult Follow-up Subjective: Patient laying in bed comfortably, no new complaints except Abdominal distension and pain Objective: PHYSICAL EXAMINATION: Vitals signs stable No fever HEENT: Pupils round and reactive to light; normocephalic; atraumatic; no jaundice. Throat is clear. NECK: Neck is supple, no JVD, no lymphadenopathy. CHEST: Chest is clear to auscultation and percussion. CARDIAC: Regular rate and rhythm with no murmur gallop or rubs. ABDOMEN: Soft, nondistended, nontender; no hepatosplenomegaly; bowel sounds are present in all four quadrants. EXTREMITIES: No clubbing, cyanosis, or edema. SKIN: Normal; no rash; no jaundice. DIE SIZER: No focal deficits; alert and oriented times three. Available Data (labs, X- Rays, Procedues) : Last Impressions Abdomen Ultrasound 04/18/17 0000 Signed Impressions: Service Date/Time: Tuesday, April 18, 2017 13:15 - CONCLUSION: Small amount of ascites without sufficient volume for safe paracentesis at this time. Eloy Patel MD Chest CT 04/16/17 0000 Signed Impressions: Service Date/Time: Sunday, April 16, 2017 13:18 - CONCLUSION: 1. No evidence of suspicious mass or malignant lymphadenopathy. 2. No evidence of acute cardia pulmonary process. 3. Ascites Yayo Fox MD Cyst Biopsy Asp-Paracentesis US 04/14/17 0000 Signed Impressions: Service Date/Time: Friday, April 14, 2017 08:14 - CONCLUSION: Uncomplicated ultrasound guided paracentesis. Jean-Claude Dawson MD Chest X-Ray 04/13/17 225 Signed Impressions: Service Date/Time: April 23:21 - CONCLUSION: 1. No acute cardiopulmonary disease. 2. No significant free air. Eloy Patel MD Abdomen/Pelvis CT 04/13/17 225 Signed Impressions: Service Date/Time: Friday, April 14, 2017 00:11 - CONCLUSION: 1. Cirrhotic appearing liver with evidence for portal hypertension and moderate to large amount of ascites. There are multiple hypodense hepatic masses primarily in the right lobe of the liver measuring 3.3 cm, 3.8 cm, and 3.0 cm, as above. These masses are concerning for hepatocellular carcinoma given underlying cirrhosis. Further characterization may be performed on outpatient basis with hepatic mass protocol MRI exam. Percutaneous biopsy would be challenging due to ascites although likely feasible. 2. Small 3.9 cm fusiform infrarenal abdominal aortic aneurysm. 1. Eloy Patel MD Laboratory Tests Test 04/18/17 06:47 04/19/17 05:30 White Blood Count 7.4 TH/MM3 11.7 TH/MM3 Red Blood Count 2.52 MIL/MM3 2.58 MIL/MM3 Hemoglobin 10.0 GM/DL 10.2 GM/DL Hematocrit 29.8 % 30.2 % Mean Corpuscular Volume 118.4 FL 117.2 FL Mean Corpuscular Hemoglobin 39.9 PG 39.6 PG Mean Corpuscular Hemoglobin Concent 33.7 % 33.8 % Red Cell Distribution Width 13.9 % 13.8 % Platelet Count 77 TH/MM3 97 TH/MM3 Mean Platelet Volume 8.1 FL 7.8 FL Neutrophils (%) (Auto) 70.1 % 77.1 % Lymphocytes (%) (Auto) 15.6 % 11.8 % Monocytes (%) (Auto) 11.3 % 9.0 % Eosinophils (%) (Auto) 2.8 % 2.0 % Basophils (%) (Auto) 0.2 % 0.1 % Neutrophils # (Auto) 5.2 TH/MM3 9.0 TH/MM3 Lymphocytes # (Auto) 1.2 TH/MM3 1.4 TH/MM3 Monocytes # (Auto) 0.8 TH/MM3 1.1 TH/MM3 Eosinophils # (Auto) 0.2 TH/MM3 0.2 TH/MM3 Basophils # (Auto) 0.0 TH/MM3 0.0 TH/MM3 CBC Comment AUTO DIFF AUTO DIFF Differential Comment AUTO DIFF CONFIRMED AUTO DIFF CONFIRMED Platelet Estimate LOW LOW Platelet Morphology Comment NORMAL NORMAL Prothrombin Time 17.7 SEC Prothromb Time International Ratio 1.6 RATIO Blood Urea Nitrogen 15 MG/DL 14 MG/DL Creatinine 0.96 MG/DL 1.20 MG/DL Random Glucose 128 MG/DL 110 MG/DL Total Protein 6.3 GM/DL 6.8 GM/DL Albumin 2.0 GM/DL 2.1 GM/DL Calcium Level 7.8 MG/DL 7.9 MG/DL Alkaline Phosphatase 95 U/L 105 U/L Aspartate Amino Transf (AST/SGOT) 50 U/L 52 U/L Alanine Aminotransferase (ALT/SGPT) 21 U/L 24 U/L Total Bilirubin 3.9 MG/DL 4.1 MG/DL Sodium Level 132 MEQ/L 131 MEQ/L Potassium Level 3.3 MEQ/L 3.8 MEQ/L Chloride Level 94 MEQ/L 95 MEQ/L Carbon Dioxide Level 29.5 MEQ/L 28.7 MEQ/L Anion Gap 9 MEQ/L 7 MEQ/L Estimat Glomerular Filtration Rate 81 ML/MIN 62 ML/MIN Ammonia 43 MCMOL/L Allergies Coded Allergies Type Severity Reaction Last Updated Verified No Known Allergies 04/13/17 Yes Uncoded Allergies Type Severity Reaction Last Updated Verified NKA Allergy Unknown 04/15/03 Active Scripts Medications Dose Route/Sig Max Daily Dose Days Date Category Dose Instructions Advair Diskus Inh (Fluticasone-Salmeterol Inh) 500-50 Mcg/Blist Aer 1 Puff INH BID 03/27/17 Rx Rinse mouth after use. Betamethasone Dipropionate Topical 0.05% Cream 1 Applic TOPICAL BID 03/15/17 Rx Claritin (Loratadine) 10 Mg Cap 10 Mg PO DAILY 03/15/17 Rx Terazosin (Terazosin HCl) 1 Mg Cap 1 Mg PO HS 03/15/17 Rx Spiriva Handihaler (Tiotropium Inh) 18 Mcg Cap 18 Mcg INH DAILY 03/15/17 Rx 1 capsule = 18 mcg Ranitidine (Ranitidine HCl) 150 Mg Tab 150 Mg PO DAILY 03/15/17 Rx Combivent Respimat Inh (Ipratropium-Albuterol Inh) 20-100 Nursing Home/Act Aero 1 Puff INH Q6HR 03/15/17 Rx ASSESSMENT/PLAN:Seen and examined, had u/s done today not enough fluid to drain. MRI liver and Liver biopsy pending. Tells me biopsy scheduled for tomorrow. It was a pleasure seeing Fabio Reis Jr. Thank you for this consult. Entered by: Ashli Brennan MD Apr 19, 2017 12:44
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
[2017-04-19] MEDS: MULTIVITAMIN TAB PO SCH (16:21)
[2017-04-19] MEDS: THIAMINE HCL 100 MG TAB PO SCH (16:21)
[2017-04-19] MEDS: FOLIC ACID 1 MG TAB PO SCH (16:21)
[2017-04-20] VITALS: BP 115/67; PULSE 86; RESP 20; TEMP 96.9; O2SAT 94
[2017-04-20] MEDS: LORazepam 1 MG TAB PO PRN ×3 (05:13→23:20)
[2017-04-20 08:00] VITALS: BP 110/71; PULSE 91; RESP 18; TEMP 97.5; O2SAT 95
[2017-04-20] MEDS: SODIUM CHLORIDE 0.9% FLUSH 10 ML FLUSH IV FLUSH SCH ×2 (08:39→21:00)
[2017-04-20] MEDS: LACTULOSE SYRUP 20 GM/30 ML CUP PO SCH ×3 (08:39→17:06)
[2017-04-20] MEDS: SPIRONOLACTONE 50 MG TAB PO SCH ×2 (08:39→17:06)
[2017-04-20] MEDS: MULTIVITAMIN TAB PO SCH (08:39)
[2017-04-20] MEDS: FUROSEMIDE 40 MG TAB PO SCH (08:39)
[2017-04-20] MEDS: FOLIC ACID 1 MG TAB PO SCH (08:39)
[2017-04-20] MEDS: DOCUSATE SODIUM 50 MG/SENNA 8.6 MG TAB PO SCH ×2 (08:39→21:00)
[2017-04-20] MEDS: THIAMINE HCL 100 MG TAB PO SCH (08:39)
[2017-04-20] MEDS: LEVOFLOXACIN 750 MG TAB PO SCH (11:11)
[2017-04-20 12:00] VITALS: BP 112/79; PULSE 79; RESP 17; TEMP 98; O2SAT 96
--- NOTE | 2017-04-20 14:56 | HHI.GIFU ---
Subjective Remarks Patient was seen and examined, laying in bed, seems to be comfortable but difficult to communicate with he was complaining about his phone not working, I discussed with him the need for liver biopsy but he is not sure he want that done, is tolerating diet Objective Vitals I&O Vital Signs Date Time Temp Pulse Resp B/P (MAP) Pulse Ox O2 Delivery O2 Flow Rate FiO2 04/20/17 12:11 18 04/20/17 12:00 98.0 79 17 112/79 (90) 96 04/20/17 08:00 97.5 91 18 110/71 (84) 95 04/20/17 00:00 96.9 86 20 115/67 (83) 94 04/19/17 20:00 97.1 89 20 146/79 (101) 93 04/19/17 16:00 97.7 82 18 130/72 (91) 96 I/O 04/19/17 04/19/17 04/19/17 04/20/17 04/20/17 04/20/17 07:00 15:00 23:00 07:00 15:00 23:00 Intake Total 480 ml 0 ml 780 ml 240 ml Balance 480 ml 0 ml 780 ml 240 ml Intake Oral 480 ml 780 ml 240 ml IV Total 0 ml # Voids 3 4 1 # Bowel Movements 0 1 0 2 Laboratory Date/Time Source Procedure Growth Status 04/13/17 23:20 Blood Peripheral Aerobic Blood Culture - Final NO GROWTH IN 5 DAYS Complete 04/13/17 23:20 Blood Peripheral Anaerobic Blood Culture - Final NO GROWTH IN 5 DAYS Complete 04/14/17 17:01 Fluid Peritoneal Fluid Gram Stain - Final Complete 04/14/17 17:01 Fluid Peritoneal Fluid Body Fluid Culture - Final NO GROWTH IN 72 HRS.--AEROBICALLY OR ... Complete Physical Exam Laboratory Tests Test 04/13/17 23:15 04/14/17 04:00 04/14/17 14:00 04/14/17 17:01 White Blood Count 8.5 TH/MM3 Red Blood Count 3.07 MIL/MM3 Hemoglobin 12.3 GM/DL Hematocrit 36.1 % Mean Corpuscular Volume 117.5 FL Mean Corpuscular Hemoglobin 39.9 PG Mean Corpuscular Hemoglobin Concent 34.0 % Red Cell Distribution Width 13.9 % Platelet Count 78 TH/MM3 Mean Platelet Volume 8.2 FL CBC Comment AUTO DIFF Differential Total Cells Counted 100 Neutrophils % (Manual) 80 % Band Neutrophils % 4 % Lymphocytes % 3 % Monocytes % 11 % Eosinophils % 1 % Basophils % 1 % Neutrophils # (Manual) 7.1 TH/MM3 Differential Comment FINAL DIFF MANUAL Platelet Estimate LOW Platelet Morphology Comment NORMAL Prothrombin Time 16.5 SEC Prothromb Time International Ratio 1.5 RATIO Activated Partial Thromboplast Time 35.5 SEC Blood Urea Nitrogen 15 MG/DL Creatinine 1.10 MG/DL Random Glucose 115 MG/DL Total Protein 6.9 GM/DL Albumin 2.1 GM/DL Calcium Level 8.2 MG/DL Magnesium Level 2.0 MG/DL Alkaline Phosphatase 118 U/L Aspartate Amino Transf (AST/SGOT) 44 U/L Alanine Aminotransferase (ALT/SGPT) 17 U/L Lactate Dehydrogenase 136 U/L Total Bilirubin 5.9 MG/DL Sodium Level 131 MEQ/L Potassium Level 3.7 MEQ/L Chloride Level 96 MEQ/L Carbon Dioxide Level 25.0 MEQ/L Anion Gap 10 MEQ/L Estimat Glomerular Filtration Rate 69 ML/MIN Lactic Acid Level 2.1 mmol/L Ammonia 41 MCMOL/L Total Creatine Kinase 49 U/L Troponin I LESS THAN 0.02 NG/ML Lipase 116 U/L Ethyl Alcohol Level LESS THAN 3 MG/DL Urine Color ORANGE Urine Turbidity CLEAR Urine pH 5.5 Urine Specific [place] GREATER THAN 1.035 Urine Protein NEG mg/dL Urine Glucose (UA) NEG mg/dL Urine Ketones NEG mg/dL Urine Occult Blood NEG Urine Nitrite NEG Urine Bilirubin NEG Urine Leukocyte Esterase NEG Urine RBC 0-3 /hpf Urine WBC 0-2 /hpf Urine Squamous Epithelial Cells 0-5 /hpf Urine Bacteria NONE /hpf Microscopic Urinalysis Comment CULT NOT INDICATED Urine Opiates Screen NEG Urine Barbiturates Screen NEG Urine Amphetamines Screen NEG Urine Benzodiazepines Screen POS Urine Cocaine Screen NEG Urine Cannabinoids Screen NEG Tumor Marker Alpha Fetoprotein 3.0 NG/ML Peritoneal Fluid WBC 1200 /MM3 Peritoneal Fluid RBC 4350 /MM3 Peritoneal Fluid Neutrophils 57 % Peritoneal Fluid Lymphocytes 15 % Peritoneal Fluid Monocytes 4 % Peritoneal Fluid Eosinophils 1 % Peritoneal Fluid Histiocytes 21 % Peritoneal Fluid Mesothelial Cells 2 % Peritoneal Fluid Total Protein 1.8 GM/DL Peritoneal Fluid Albumin 0.7 G/DL Peritoneal Fluid LDH 74 U/L Peritoneal Fluid Glucose 96 MG/DL Test 04/15/17 05:57 White Blood Count 7.6 TH/MM3 Red Blood Count 2.70 MIL/MM3 Hemoglobin 10.3 GM/DL Hematocrit 31.4 % Mean Corpuscular Volume 116.2 FL Mean Corpuscular Hemoglobin 38.3 PG Mean Corpuscular Hemoglobin Concent 33.0 % Red Cell Distribution Width 13.6 % Platelet Count 76 TH/MM3 Mean Platelet Volume 7.7 FL CBC Comment AUTO DIFF Differential Total Cells Counted 100 Neutrophils % (Manual) 71 % Band Neutrophils % 1 % Lymphocytes % 15 % Monocytes % 12 % Neutrophils # (Manual) 5.5 TH/MM3 Myelocytes 1 % Differential Comment FINAL DIFF MANUAL Platelet Estimate NORMAL Platelet Morphology Comment NORMAL Prothrombin Time 17.5 SEC Prothromb Time International Ratio 1.6 RATIO Blood Urea Nitrogen 16 MG/DL Creatinine 1.20 MG/DL Random Glucose 141 MG/DL Total Protein 6.0 GM/DL Albumin 2.0 GM/DL Calcium Level 7.4 MG/DL Alkaline Phosphatase 103 U/L Aspartate Amino Transf (AST/SGOT) 58 U/L Alanine Aminotransferase (ALT/SGPT) 18 U/L Total Bilirubin 3.7 MG/DL Sodium Level 133 MEQ/L Potassium Level 3.6 MEQ/L Chloride Level 98 MEQ/L Carbon Dioxide Level 27.0 MEQ/L Anion Gap 8 MEQ/L Estimat Glomerular Filtration Rate 62 ML/MIN Protein Corrected Calcium 8.0 MG/DL Ammonia 56 MCMOL/L HEENT: Pupils round and reactive to light; normocephalic; atraumatic; still jaundice jaundice. Throat is clear. NECK: Neck is supple, no JVD, no lymphadenopathy. CHEST: Chest is clear to auscultation and percussion. CARDIAC: Regular rate and rhythm with no murmur gallop or rubs. ABDOMEN: Soft, distended with ascites, moderate diffuse tenderness; no hepatosplenomegaly; bowel sounds are present in all four quadrants. EXTREMITIES: No clubbing, cyanosis, or edema. SKIN: Normal; no rash; jaundice. ESCALATOR CONSTRUCTOR: No focal deficits; alert and oriented times three but very sleepy. Assessment and Plan Plan Patient is 56-year-old male with multiple colonic alcohol-induced cirrhosis with ascites that [facility] [place] and is more than 1.1 consistent with portal hypertension. Also his ascitic fluid positive for white count consistent with SBP. Patient also has few lesion in the liver but his alpha-fetoprotein was normal 04/16/2017 patient without significant changes, still on antibiotic, still mild abdominal pain, no GI bleed 04/17/2017 patient is very sleepy still complaining of pain, angry about having an MRI no GI bleed 04/20/2017 more alert today, no complaints, not sure if he wanted to have liver biopsy at this time Recommendation No alcohol MRI for further evaluation of the liver masses if patient agreeable We might need to start long-term diuretics Patient does not seem to be very cooperative Jose Alfredo Webber MD Apr 20, 2017 14:55
--- NOTE | 2017-04-20 15:02 | HHI.PR ---
Subjective Remarks patient seen and evaluated today in follow-up for alcoholic dependency and hepatic cirrhosis. Overall patient states stabilized. He has refused a biopsy however he is somewhat confused. I have called the brother Gulshan for further information and further planning. Objective Vitals Vital Signs Date Time Temp Pulse Resp B/P (MAP) Pulse Ox O2 Delivery O2 Flow Rate FiO2 04/20/17 12:11 18 04/20/17 12:00 98.0 79 17 112/79 (90) 96 04/20/17 08:00 97.5 91 18 110/71 (84) 95 04/20/17 00:00 96.9 86 20 115/67 (83) 94 04/19/17 20:00 97.1 89 20 146/79 (101) 93 04/19/17 16:00 97.7 82 18 130/72 (91) 96 I/O 04/19/17 04/19/17 04/19/17 04/20/17 04/20/17 04/20/17 07:00 15:00 23:00 07:00 15:00 23:00 Intake Total 480 ml 0 ml 780 ml 240 ml Balance 480 ml 0 ml 780 ml 240 ml Intake Oral 480 ml 780 ml 240 ml IV Total 0 ml # Voids 3 4 1 # Bowel Movements 0 1 0 2 Result Diagram: 04/19/17 0530 04/19/17 0530 Imaging Last Impressions Abdomen Ultrasound 04/18/17 0000 Signed Impressions: Service Date/Time: Tuesday, April 18, 2017 13:15 - CONCLUSION: Small amount of ascites without sufficient volume for safe paracentesis at this time. Eloy Patel MD Chest CT 04/16/17 0000 Signed Impressions: Service Date/Time: Sunday, April 16, 2017 13:18 - CONCLUSION: 1. No evidence of suspicious mass or malignant lymphadenopathy. 2. No evidence of acute cardia pulmonary process. 3. Ascites Yayo Fox MD Cyst Biopsy Asp-Paracentesis US 04/14/17 0000 Signed Impressions: Service Date/Time: Friday, April 14, 2017 08:14 - CONCLUSION: Uncomplicated ultrasound guided paracentesis. Jean-Claude Dawson MD Chest X-Ray 04/13/17 [id number] Signed Impressions: Service Date/Time: April 23:21 - CONCLUSION: 1. No acute cardiopulmonary disease. 2. No significant free air. Eloy Patel MD Abdomen/Pelvis CT 04/13/17 [id number] Signed Impressions: Service Date/Time: Friday, April 14, 2017 00:11 - CONCLUSION: 1. Cirrhotic appearing liver with evidence for portal hypertension and moderate to large amount of ascites. There are multiple hypodense hepatic masses primarily in the right lobe of the liver measuring 3.3 cm, 3.8 cm, and 3.0 cm, as above. These masses are concerning for hepatocellular carcinoma given underlying cirrhosis. Further characterization may be performed on outpatient basis with hepatic mass protocol MRI exam. Percutaneous biopsy would be challenging due to ascites although likely feasible. 2. Small 3.9 cm fusiform infrarenal abdominal aortic aneurysm. 1. lEoy Patel MD Objective Remarks GENERAL: This is a well-nourished, well-developed patient, in no apparent distress. CARDIOVASCULAR: Regular rate and rhythm without murmurs, gallops, or rubs. RESPIRATORY: Clear to auscultation. Breath sounds equal bilaterally. No wheezes , rales, or rhonchi. GASTROINTESTINAL: Abdomen soft, non-tender, nondistended. Normal active bowel sounds MUSCULOSKELETAL: Extremities without clubbing, cyanosis, or edema. NEURO: Alert & Oriented x4 to person, and time, situation. Moves all ext x4 Procedures us paracentesis 7.7 liters A/P Problem List: (1) Liver masses ICD Code: R16.0 - Hepatomegaly, not elsewhere classified Status: Acute Plan: 1. Cirrhosis with ascites, multiple 3 cm liver masses in the right lobe of the liver. Probable hepatocellular carcinoma, however AFP not elevated. Low -grade fevers, rule out spontaneous bacterial peritonitis, diagnostic paracentesis indicative of infection however ascitic fluid cultures are negative for 48 hours. Status post Diagnostic and therapeutic paracentesis. liver biopsy has been ordered however patient refused MRI to further evaluate the masses, may be done as an outpatient, chest CT shows no masses. continue Lasix and spironolactone, Levaquin for SBP and for the possible mild cellulitis over the lower abdomen. not enough fluid for repeat paracentesis 2. Alcoholism -continue thiamine, folic acid and multivitamin. DC alcohol withdrawal protocol. Use Ativan as needed for anxiety. 3. Mild hyponatremia secondary to the cirrhosis and fluid overload. 4. Thrombocytopenia secondary to cirrhosis. 5. Coagulopathy with pt 17.7 Discharge Planning home if no Bx consented will discuss with family, Gulshan (brother) called the patient's request Tiffany Cook MD Apr 20, 2017 15:02
[2017-04-20 16:00] VITALS: BP 120/82; PULSE 82; RESP 18; TEMP 98.1; O2SAT 98
[2017-04-20 20:00] VITALS: BP 114/65; PULSE 83; RESP 16; TEMP 96.8; O2SAT 96
[2017-04-21] VITALS: BP 113/70; PULSE 91; RESP 20; TEMP 97.3; O2SAT 96
[2017-04-21] MEDS: LORazepam 1 MG TAB PO PRN (06:19)
[2017-04-21 07:15] LABS: CHLORIDE 97 MEQ/L (98-107); POTASSIUM 4.1 MEQ/L (3.5-5.1); SODIUM (NA) 133 MEQ/L (136-145)
[2017-04-21 07:23] LABS: ANION GAP 9 MEQ/L (5-15); BICARBONATE 26.8 MEQ/L (21.0-32.0); BLOOD UREA NITROGEN 13 MG/DL (7-18)
[2017-04-21 07:26] LABS: ALT (GPT) 25 U/L (12-78); AST (GOT) 55 U/L (15-37); GLOMERULAR FILTRATION RATE 77 ML/MIN (>89)
[2017-04-21 07:28] LABS: TOTAL BILIRUBIN ADULT 3.4 MG/DL (0.2-1.0)
[2017-04-21 07:29] LABS: ALKALINE PHOSPHATASE 98 U/L (45-117)
[2017-04-21 08:00] VITALS: BP 99/71; PULSE 92; RESP 18; TEMP 97.3; O2SAT 93
[2017-04-21] MEDS: FOLIC ACID 1 MG TAB PO SCH (08:43)
[2017-04-21] MEDS: FUROSEMIDE 40 MG TAB PO SCH (08:43)
[2017-04-21] MEDS: LACTULOSE SYRUP 20 GM/30 ML CUP PO SCH ×3 (08:43→17:00)
[2017-04-21] MEDS: MULTIVITAMIN TAB PO SCH (08:44)
[2017-04-21] MEDS: SPIRONOLACTONE 50 MG TAB PO SCH ×2 (08:44→17:00)
[2017-04-21] MEDS: SODIUM CHLORIDE 0.9% FLUSH 10 ML FLUSH IV FLUSH SCH ×3 (08:44→21:25)
[2017-04-21] MEDS: DOCUSATE SODIUM 50 MG/SENNA 8.6 MG TAB PO SCH ×2 (08:44→21:25)
[2017-04-21] MEDS: THIAMINE HCL 100 MG TAB PO SCH (08:44)
--- NOTE | 2017-04-21 10:46 | HHI.PR ---
Subjective Remarks Patient seen today in follow-up for encephalopathy. Ammonia is improved. Patient still makes little sense. At this point he has not agreed to the MRI or the biopsy. I have spoken with his brother Gulshan (a paid search analyst), ptn does not want a biopsy ( his father had lung biopsy and after 8 months). Hives 10 years ago, active blistering developed but got better with etoh (only beer/hops) that how he became an alcoholic He is usually slightly more coherent and the brothers concerned about the Ativan that he is getting. Objective Vitals Vital Signs Date Time Temp Pulse Resp B/P (MAP) Pulse Ox O2 Delivery O2 Flow Rate FiO2 04/21/17 08:00 97.3 92 18 99/71 (80) 93 04/21/17 00:00 97.3 91 20 113/70 (84) 96 04/20/17 20:00 96.8 83 16 114/65 (81) 96 04/20/17 18:06 18 04/20/17 16:00 98.1 82 18 120/82 (95) 98 04/20/17 12:00 98.0 79 17 112/79 (90) 96 I/O 04/20/17 04/20/17 04/20/17 04/21/17 04/21/17 04/21/17 07:00 15:00 23:00 07:00 15:00 23:00 Intake Total 240 ml 600 ml 780 ml Balance 240 ml 600 ml 780 ml Intake Oral 240 ml 600 ml 780 ml # Voids 1 2 3 # Bowel Movements 2 1 Result Diagram: 04/19/17 0530 04/21/17 0635 Objective Remarks GENERAL: This is a well-nourished, well-developed patient, in no apparent distress. CARDIOVASCULAR: Regular rate and rhythm without murmurs, gallops, or rubs. RESPIRATORY: Clear to auscultation. Breath sounds equal bilaterally. No wheezes , rales, or rhonchi. GASTROINTESTINAL: Abdomen soft, non-tender, nondistended. Normal active bowel sounds MUSCULOSKELETAL: Extremities without clubbing, cyanosis, or edema. NEURO: Alert & Oriented x4 to person, and time, situation. Moves all ext x4 Procedures us paracentesis 7.7 liters A/P Problem List: (1) Liver masses ICD Code: R16.0 - Hepatomegaly, not elsewhere classified Status: Acute Plan: 1. Cirrhosis with ascites, multiple 3 cm liver masses in the right lobe of the liver. Probable hepatocellular carcinoma, however AFP not elevated. Low -grade fevers, rule out spontaneous bacterial peritonitis, diagnostic paracentesis indicative of infection however ascitic fluid cultures are negative for 48 hours. Status post Diagnostic and therapeutic paracentesis. liver biopsy refused by patient MRI deferred we'll consider this to be done as an outpatient (PCP Sandra Huffman), chest CT shows no masses. continue Lasix and spironolactone, Levaquin for SBP and for the possible mild cellulitis over the lower abdomen. not enough fluid for repeat paracentesis 2. Alcoholism -continue thiamine, folic acid and multivitamin. Hold Ativan and follow cognitive status 3. Mild hyponatremia secondary to the cirrhosis and fluid overload. 4. Thrombocytopenia secondary to cirrhosis. 5. Coagulopathy with pt 17.7 Assessment and Plan Trial off of Ativan, if stable likely discharge in a.m. to [facility] Discharge Planning Likely discharge in a.m. Tiffany Cook MD Apr 21, 2017 10:46
[2017-04-21] MEDS ORDERED: Lactulose Liq PO (10:48)
[2017-04-21] MEDS ORDERED: FURO40TA PO (10:48)
[2017-04-21 12:00] VITALS: BP_SYST 143; BP_SYST 146; BP_DIAS 69; BP_DIAS 82; PULSE 60; PULSE 96; RESP 20; TEMP 96; TEMP 97.2; O2SAT 93; O2SAT 98
[2017-04-21 16:00] VITALS: BP 139/94; PULSE 86; RESP 18; TEMP 98.2; O2SAT 95
[2017-04-21] MEDS: diphenhydrAMINE HCL 25 MG CAP PO PRN (16:56)
[2017-04-21 20:05] VITALS: BP 137/85; PULSE 80; RESP 12; TEMP 99.3; O2SAT 95
[2017-04-22 01:48] VITALS: BP 118/63; PULSE 93; RESP 16; TEMP 98.6; O2SAT 97
[2017-04-22 08:34] VITALS: BP 147/68; PULSE 96; RESP 15; TEMP 99.6; O2SAT 94
[2017-04-22] MEDS: LACTULOSE SYRUP 20 GM/30 ML CUP PO SCH (08:44)
[2017-04-22] MEDS: SPIRONOLACTONE 50 MG TAB PO SCH (08:44)
[2017-04-22] MEDS: FOLIC ACID 1 MG TAB PO SCH (08:44)
[2017-04-22] MEDS: MULTIVITAMIN TAB PO SCH (08:44)
[2017-04-22] MEDS: THIAMINE HCL 100 MG TAB PO SCH (08:45)
[2017-04-22] MEDS: FUROSEMIDE 40 MG TAB PO SCH (08:45)
[2017-04-22] MEDS: DOCUSATE SODIUM 50 MG/SENNA 8.6 MG TAB PO SCH (08:45)
[2017-04-22] MEDS: SODIUM CHLORIDE 0.9% FLUSH 10 ML FLUSH IV FLUSH SCH (08:46)
[2017-04-22 13:29] VITALS: BP 95/70; PULSE 92; RESP 16; TEMP 99.2; O2SAT 96
[2017-04-22] MEDS ORDERED: ALDA50TA2 PO (13:55)
--- NOTE | 2017-04-22 13:56 | HHI.DS ---
Discharge Summary Admission Date Apr 14, 2017 at 01:40 Discharge Date: Apr 22, 2017 Admitting Diagnosis Alcohol cirrhosis w/ ascites; focal abd wall cellulitis (1) Liver masses ICD Code: R16.0 - Hepatomegaly, not elsewhere classified Status: Acute (2) SBP (spontaneous bacterial peritonitis) ICD Code: K65.2 - Spontaneous bacterial peritonitis (3) Cirrhosis of liver with ascites ICD Code: K74.60 - Unspecified cirrhosis of liver Status: Acute (4) Hyponatremia ICD Code: E87.1 - Hypo-osmolality and hyponatremia Status: Acute (5) Cellulitis of abdominal wall ICD Code: L03.311 - Cellulitis of abdominal wall Status: Acute (6) Alcohol abuse, daily use ICD Code: F10.10 - Alcohol abuse, uncomplicated Status: Chronic (7) Alcohol withdrawal ICD Code: F10.239 - Alcohol dependence with withdrawal, unspecified Procedures us paracentesis 7.7 liters Brief History - From Admission This is a 56 year-old male with history of daily alcohol use, idiopathic angioedema urticaria who presented to the hospital via private vehicle for complaints of increasing abdominal girth. History is obtained from the patient as well as review of the emergency department records. The patient himself is a poor historian and is somewhat somnolent. The patient states that his abdomen has "just been getting bigger and bigger." He states it is difficult to sit up. He states he has eaten very little over the past few days. The patient denies fever or chills to me however this was reported in the ER chart. Reportedly he was seen by his primary care physician a month ago however the patient is unable to offer me any details of this. The patient states that he drinks beer daily to control his urticaria. He also takes Benadryl nightly. The patient denies any Tylenol use. The patient states she also has history of myocardial infarction in the past however he is unable to tell me if he has a stent, deferring to his mother "my mom knows all that." Patient denies any weight loss, blood in the stool or hematemesis. Patient denies any history of IV drug abuse or hepatitis. In the emergency department abdominal CT scan showed a cirrhotic liver with large ascites and multiple hypodense hepatic masses in the right lobe of the liver measuring 3-3.8 cm concerning for hepatocellular carcinoma. 10 point review systems otherwise negative although as stated above patient is a poor historian. CBC/BMP: 04/19/17 0530 04/21/17 0635 Significant Findings Laboratory Tests Test 04/21/17 06:35 Albumin 2.2 GM/DL (3.4-5.0) Aspartate Amino Transf (AST/SGOT) 55 U/L (15-37) Total Bilirubin 3.4 MG/DL (0.2-1.0) Sodium Level 133 MEQ/L (136-145) Chloride Level 97 MEQ/L (98-107) Estimat Glomerular Filtration Rate 77 ML/MIN (>89) Imaging Last Impressions Abdomen Ultrasound 04/18/17 0000 Signed Impressions: Service Date/Time: Tuesday, April 18, 2017 13:15 - CONCLUSION: Small amount of ascites without sufficient volume for safe paracentesis at this time. Eloy Patel MD Chest CT 04/16/17 0000 Signed Impressions: Service Date/Time: Sunday, April 16, 2017 13:18 - CONCLUSION: 1. No evidence of suspicious mass or malignant lymphadenopathy. 2. No evidence of acute cardia pulmonary process. 3. Ascites Yayo Fox MD Cyst Biopsy Asp-Paracentesis US 04/14/17 0000 Signed Impressions: Service Date/Time: Friday, April 14, 2017 08:14 - CONCLUSION: Uncomplicated ultrasound guided paracentesis. Jean-Claude Dawson MD Chest X-Ray 04/13/17 2259 Signed Impressions: Service Date/Time: April 23:21 - CONCLUSION: 1. No acute cardiopulmonary disease. 2. No significant free air. Eloy Patel MD Abdomen/Pelvis CT 04/13/17 2259 Signed Impressions: Service Date/Time: Friday, April 14, 2017 00:11 - CONCLUSION: 1. Cirrhotic appearing liver with evidence for portal hypertension and moderate to large amount of ascites. There are multiple hypodense hepatic masses primarily in the right lobe of the liver measuring 3.3 cm, 3.8 cm, and 3.0 cm, as above. These masses are concerning for hepatocellular carcinoma given underlying cirrhosis. Further characterization may be performed on outpatient basis with hepatic mass protocol MRI exam. Percutaneous biopsy would be challenging due to ascites although likely feasible. 2. Small 3.9 cm fusiform infrarenal abdominal aortic aneurysm. 1. Eloy Patel MD PE at Discharge GENERAL: Well-nourished, well-developed patient. SKIN: Warm and dry. HEAD: Normocephalic. EYES: No scleral icterus. No injection or drainage. NECK: Supple, trachea midline. No JVD or lymphadenopathy. CARDIOVASCULAR: Regular rate and rhythm without murmurs, gallops, or rubs. RESPIRATORY: Breath sounds equal bilaterally. No accessory muscle use. GASTROINTESTINAL: Abdomen soft, non-tender, nondistended. EXTREMITIES: No cyanosis, or edema. NEUROLOGICAL: Awake, alert, and oriented x 3. Non-focal. Hospital Course The patient was admitted to the hospital, GI was consulted. He underwent abdominal paracentesis with removal of 7 L of fluid. White blood cells were elevated consistent with peritonitis however cultures were negative. He was treated with antibiotics. A repeat paracentesis was ordered however there was not enough fluid to perform. He completed a course of Levaquin. The patient was also treated for alcohol withdrawal. The patient was recommended to have a liver biopsy and an MRI of the abdomen however he declined both. Chest CT and abdominal CT scan were negative for metastasis. Alpha-fetoprotein was not elevated. The patient shows denial regarding his drinking. I did spend about 20 minutes educating him on the cirrhosis and importance of alcohol cessation and follow-up with gastroenterology. The patient has been started on spironolactone and Lasix in the hospital and these will be continued. The patient at this point is stable for discharge. He will be going home with his brother. I did strongly encourage him to follow-up with gastroenterology and avoid alcohol. The patient voices understanding. Pt Condition on Discharge: Stable Discharge Disposition: Discharge Home Discharge Time: > 30 minutes Discharge Instructions DIET: Follow Instructions for: As Tolerated, No Restrictions Activities you can perform: Regular-No Restrictions Follow up Referrals: Gastroenterology - 2 Weeks @ [facility] New Medications: Furosemide (Furosemide) 40 Mg Tab 40 MG PO DAILY for fluid, #30 TAB Spironolactone (Aldactone) 50 Mg Tab 50 MG PO BID@,18 for diuretic, #60 TAB [Lactulose Liq] () 30 ML SYRP 30 ML PO TID for ammonia, #90 Continued Medications: Betamethasone Dipropionate Topical (Betamethasone Dipropionate Topical) 0.05% Cream 1 APPLIC TOPICAL BID for Dermatoses, #60 GM 0 Refills Fluticasone-Salmeterol Inh (Advair Diskus Inh) 500-50 Mcg/Blist Aer 1 PUFF INH BID, #1 INHALER 2 Refills Rinse mouth after use. Ipratropium-Albuterol Inh (Combivent Respimat Inh) 20-100 Senior Living/Act Aero 1 PUFF INH Q6HR for Asthma Management, #1 INHALER 6 Refills Loratadine (Claritin) 10 Mg Cap 10 MG PO DAILY for Allergy Management, #90 CAP 1 Refill Ranitidine (Ranitidine) 150 Mg Tab 150 MG PO DAILY for Heartburn Management, #90 TAB 1 Refill Terazosin (Terazosin) 1 Mg Cap 1 MG PO HS, #90 CAP 1 Refill Tiotropium Inh (Spiriva Handihaler) 18 Mcg Cap 18 MCG INH DAILY for COPD, #30 CAP 6 Refills 1 capsule = 18 mcg Johanna Rodriguez MD Apr 22, 2017 13:56
== END 2017-04-22 15:19 | disposition home or self-care (01) | DRG 432 ==
LOC: PHED 22:13 → PHEDA 04-14 01:40 → PH3A 04-14 02:25
PROVIDERS: ADMIT Family Medicine; ATTEND Family Medicine
PROC: 0W9G3ZZ Drainage of Peritoneal Cavity, Percutaneous Approach (ICD-10-PCS; principal; 2017-04-14)
PROC: 0W9G3ZX Drainage of Peritoneal Cavity, Percutaneous Approach, Diagnostic (ICD-10-PCS; 2017-04-14)
DX: K70.31 Alcoholic cirrhosis of liver with ascites (principal); K65.2 Spontaneous bacterial peritonitis; G93.40 Encephalopathy, unspecified; K76.6 Portal hypertension; E72.20 Disorder of urea cycle metabolism, unspecified; D69.59 Other secondary thrombocytopenia; E87.1 Hypo-osmolality and hyponatremia; L03.311 Cellulitis of abdominal wall; F10.230 Alcohol dependence with withdrawal, uncomplicated; I25.10 Atherosclerotic heart disease of native coronary artery without angina pectoris; J44.9 Chronic obstructive pulmonary disease, unspecified; F17.210 Nicotine dependence, cigarettes, uncomplicated; L50.1 Idiopathic urticaria; N40.0 Benign prostatic hyperplasia without lower urinary tract symptoms; E87.6 Hypokalemia; R16.0 Hepatomegaly, not elsewhere classified; I25.2 Old myocardial infarction
CPT/HCPCS: 49083; 71010; 71250; 74177; 76705; 80053; 80307; 81001; 82042; 82105; 82140; 82150; 82550; 82945; 83605; 83615; 83690; 83735; 84157; 84484; 85007; 85025; 85027; 85610; 85730; 87040; 87070; 87205; 89051; 93005; 96365; 99285; C1729; J0696; J1956; J2060; J2543; P9047; Q9967

== ENCOUNTER 2017-08-15 16:00 | Inpatient (IN) | payer OTHER ==
[2017-08-15] VITALS (7 sets, daily range): BP systolic 94–150; BP diastolic 61–92; PULSE 87–102; RESP 16–20; TEMP 98.1–99.1; O2SAT 95–96
[~2017-08-15] VITALS: Ht 172.7 cm; Wt 109.2 kg
[~2017-08-15 16:00] MED LIST changes: +ALDA50TA2 PO; +FURO40TA PO; +Lactulose Liq PO
--- NOTE | 2017-08-15 17:33 | PD ---
HPI Chief Complaint: Abdominal Pain Time Seen by Provider: 17:28 Travel History International Travel<30 days: No Contact w/Intl Traveler<30days: No Traveled to known affect area: No History of Present Illness HPI 56-year-old male patient with history of cirrhosis, ascites, had last ascites drainage done 6 weeks ago, presents to the ER today because of worsening abdominal distention, pain, and dyspnea on exertion. He states that he feels like his ascites is just getting so tense and is extremely uncomfortable. He denies any vomiting, fevers, or any other symptoms. He states that he had been seen by Dr. Huffman last week and was told to come to the ER if his symptoms are just getting too bad. Modifying Factors: None Associated Signs & Symptoms: Worsening abdominal distention, pain Risk Factors: Cirrhosis, ascites PFSH Past Medical History Autoimmune Disease: No Blood Disorders: No Anxiety: Yes Depression: No Cancer: No Cardiovascular Problems: Yes COPD: Yes Coronary Artery Disease: Yes Diminished Hearing: No Endocrine: No Gastrointestinal Disorders: Yes Hypertension: Yes Immune Disorder: No Musculoskeletal: Yes (bilateral plantar faseitis) Neurologic: No Reproductive: No Respiratory: Yes Myocardial Infarction: Yes Past Surgical History Other Surgery: No Social History Alcohol Use: Yes Tobacco Use: Yes Substance Use: Yes (MARIJUANA) Allergies-Medications (Allergen,Severity, Reaction): Coded Allergies: No Known Allergies (Verified Adverse Reaction, Unknown, 08/15/17) Uncoded Allergies: NKA (Allergy, Unknown, 04/15/03) Reported Meds & Prescriptions Reported Meds & Active Scripts Active Aldactone (Spironolactone) 50 Mg Tab 50 Mg PO BID@,18 Furosemide 40 Mg Tab 40 Mg PO DAILY Advair Diskus Inh (Fluticasone-Salmeterol Inh) 500-50 Mcg/Blist Aer 1 Puff INH BID Rinse mouth after use. Claritin (Loratadine) 10 Mg Cap 10 Mg PO DAILY Spiriva Handihaler (Tiotropium Inh) 18 Mcg Cap 18 Mcg INH DAILY 1 capsule = 18 mcg Ranitidine (Ranitidine HCl) 150 Mg Tab 150 Mg PO DAILY Combivent Respimat Inh (Ipratropium-Albuterol Inh) 20-100 Correction/Act Aero 1 Puff INH Q6HR Review of Systems Except as stated in HPI: all other systems reviewed are Neg Physical Exam Narrative GENERAL: Well-developed middle age white male patient currently in moderate distress. Awake and oriented 3. SKIN: Focused skin assessment warm/dry. HEAD: Atraumatic. Normocephalic. EYES: Pupils equal and round. No scleral icterus. No injection or drainage. ENT: No nasal bleeding or discharge. Mucous membranes pink and moist. NECK: Trachea midline. No JVD. CARDIOVASCULAR: Regular rate and rhythm. No murmur appreciated. RESPIRATORY: No accessory muscle use. Clear to auscultation. Breath sounds equal bilaterally. GASTROINTESTINAL: Abdomen soft, non-tender, tensely distended. Hepatic and splenic margins not palpable. MUSCULOSKELETAL: No obvious deformities. No clubbing. No cyanosis. No edema. NEUROLOGICAL: Awake and alert. No obvious cranial nerve deficits. Motor grossly within normal limits. Normal speech. PSYCHIATRIC: Appropriate mood and affect; insight and judgment normal. Data Data Last Documented VS Vital Signs Date Time Temp Pulse Resp B/P (MAP) Pulse Ox O2 Delivery O2 Flow Rate FiO2 08/15/17 17:44 94 20 150/85 (106) 96 08/15/17 16:02 99.1 Orders Orders Complete Blood Count With Diff (08/15/17 17:28) Comprehensive Metabolic Panel (08/15/17 17:28) Prothrombin Time / Inr (Pt) (08/15/17 17:28) Act Partial Throm Time (Ptt) (08/15/17 17:28) Us Guided Abd Paracentesis (08/15/17 ) Vital Signs (Adult) LAISHA.Q4H (08/15/17 18:48) Activity Oob With Assistance (08/15/17 18:48) [employer] Salesperson / Telemetry LAISHA.Q8H (08/15/17 18:48) Admit Order (Ed Use Only) (08/15/17 18:53) Admit To Inpatient (08/15/17 ) Inpatient Certification (08/15/17 ) Diet Regular Basic (08/15/17 Dinner) Npo After Midnight W/ Po Meds (08/15/17 Dinner) Furosemide (Lasix) (08/16/17 09:00) Loratadine (Claritin) (08/16/17 09:00) Spironolactone (Aldactone) (08/16/17 09:00) Tiotropium Inh (Spiriva Inh) (08/16/17 09:00) (Nf) Fluticasone-Salmeterol Inh (Advair (08/15/17 21:00) (Nf) Ipratropium-Albuterol Inh (Combiven (08/16/17 00:00) (Nf) Ranitidine (08/16/17 09:00) Labs Laboratory Tests Test 08/15/17 17:35 White Blood Count 3.3 TH/MM3 Red Blood Count 2.77 MIL/MM3 Hemoglobin 10.4 GM/DL Hematocrit 31.8 % Mean Corpuscular Volume 114.9 FL Mean Corpuscular Hemoglobin 37.7 PG Mean Corpuscular Hemoglobin Concent 32.8 % Red Cell Distribution Width 14.8 % Platelet Count 90 TH/MM3 Mean Platelet Volume 7.3 FL Neutrophils (%) (Auto) 64.3 % Lymphocytes (%) (Auto) 23.2 % Monocytes (%) (Auto) 8.8 % Eosinophils (%) (Auto) 2.7 % Basophils (%) (Auto) 1.0 % Neutrophils # (Auto) 2.1 TH/MM3 Lymphocytes # (Auto) 0.8 TH/MM3 Monocytes # (Auto) 0.3 TH/MM3 Eosinophils # (Auto) 0.1 TH/MM3 Basophils # (Auto) 0.0 TH/MM3 CBC Comment DIFF FINAL Differential Comment Prothrombin Time 15.0 SEC Prothromb Time International Ratio 1.5 RATIO Activated Partial Thromboplast Time 30.1 SEC Blood Urea Nitrogen 5 MG/DL Creatinine 0.92 MG/DL Random Glucose 115 MG/DL Total Protein 6.8 GM/DL Albumin 2.3 GM/DL Calcium Level 7.8 MG/DL Alkaline Phosphatase 80 U/L Aspartate Amino Transf (AST/SGOT) 37 U/L Alanine Aminotransferase (ALT/SGPT) 14 U/L Total Bilirubin 2.7 MG/DL Sodium Level 138 MEQ/L Potassium Level 4.1 MEQ/L Chloride Level 104 MEQ/L Carbon Dioxide Level 25.9 MEQ/L Anion Gap 8 MEQ/L Estimat Glomerular Filtration Rate 85 ML/MIN MDM Medical Decision Making Medical Screen Exam Complete: Yes Emergency Medical Condition: Yes Medical Record Reviewed: Yes Interpretation(s) Laboratory Tests Test 08/15/17 17:35 White Blood Count 3.3 TH/MM3 (4.0-11.0) Red Blood Count 2.77 MIL/MM3 (4.50-5.90) Hemoglobin 10.4 GM/DL (13.0-17.0) Hematocrit 31.8 % (39.0-51.0) Mean Corpuscular Volume 114.9 FL (80.0-100.0) Mean Corpuscular Hemoglobin 37.7 PG (27.0-34.0) Platelet Count 90 TH/MM3 (150-450) Monocytes (%) (Auto) 8.8 % (0.0-8.0) Lymphocytes # (Auto) 0.8 TH/MM3 (1.0-4.8) Prothrombin Time 15.0 SEC (9.8-11.6) Blood Urea Nitrogen 5 MG/DL (7-18) Random Glucose 115 MG/DL (74-106) Albumin 2.3 GM/DL (3.4-5.0) Calcium Level 7.8 MG/DL (8.5-10.1) Total Bilirubin 2.7 MG/DL (0.2-1.0) Estimat Glomerular Filtration Rate 85 ML/MIN (>89) Differential Diagnosis Tense ascites Narrative Course There is significant ascites in the patient appears fairly uncomfortable. Case was discussed with Dr. Green of interventional radiology and he states that patient's paracentesis can be done here at [facility] [place] tomorrow by interventional radiology. Order was placed for the ultrasound-guided paracentesis as directed by radiology. Lab work was ordered for further evaluation of platelets and INR. I have discussed the findings with Dr. Cavanaugh , plan to admit the patient for medical management tonight and IR drainage tomorrow. Diagnosis Primary Impression: Poorly controlled ascites Admitting Information Admitting Physician Requests: Admit Grey Daniel MD Aug 15, 2017 17:33
[2017-08-15 17:49] LABS: AUTOMATED NEUTROPHIL # 2.1 TH/MM3 (1.8-7.7); EOSINOPHIL # 0.1 TH/MM3 (0-0.4); EOSINOPHIL % 2.7 % (0.0-4.0); HEMATOCRIT 31.8 % (39.0-51.0); HEMOGLOBIN 10.4 GM/DL (13.0-17.0); LYMPH % 23.2 % (9.0-44.0); LYMPHOCYTE # 0.8 TH/MM3 (1.0-4.8); MEAN CELL VOLUME 114.9 FL (80.0-100.0); MEAN CORPUSCULAR HEMOGLOBIN 37.7 PG (27.0-34.0); MEAN CORPUSCULAR HGB CONC 32.8 % (32.0-36.0); MEAN PLATELET VOLUME 7.3 FL (7.0-11.0); MONO % 8.8 % (0.0-8.0); MONOCYTE # 0.3 TH/MM3 (0-0.9); NEUT % 64.3 % (16.0-70.0); PLATELET COUNT 90 TH/MM3 (150-450); RED BLOOD COUNT 2.77 MIL/MM3 (4.50-5.90); RED CELL DISTRIBUTION WIDTH 14.8 % (11.6-17.2); WHITE BLOOD COUNT 3.3 TH/MM3 (4.0-11.0)
[2017-08-15 18:24] LABS: CHLORIDE 104 MEQ/L (98-107); SODIUM (NA) 138 MEQ/L (136-145)
[2017-08-15 18:29] LABS: CALCIUM 7.8 MG/DL (8.5-10.1)
[2017-08-15 18:30] LABS: ALBUMIN 2.3 GM/DL (3.4-5.0); BICARBONATE 25.9 MEQ/L (21.0-32.0); BLOOD UREA NITROGEN 5 MG/DL (7-18); GLUCOSE,RANDOM 115 MG/DL (74-106)
[2017-08-15 18:33] LABS: ALT (GPT) 14 U/L (12-78); AST (GOT) 37 U/L (15-37); CREATININE 0.92 MG/DL (0.60-1.30); GLOMERULAR FILTRATION RATE 85 ML/MIN (>89); INTERNATIONAL NORMALIZED RATIO 1.5 RATIO
[2017-08-15 18:34] LABS: TOTAL BILIRUBIN ADULT 2.7 MG/DL (0.2-1.0); TOTAL PROTEIN 6.8 GM/DL (6.4-8.2)
[2017-08-15 18:36] LABS: ALKALINE PHOSPHATASE 80 U/L (45-117)
[2017-08-15] MEDS: FAMOTIDINE 20 MG TAB PO SCH (21:40)
[2017-08-15] MEDS: MORPHINE SULFATE 2 MG/ML INJ IV PUSH PRN (22:52)
[2017-08-15] MEDS ORDERED: RESP: ALBUTEROL 2.5 MG/IPRATROPIUM 0.5 MG NEB (PRN) NEB (23:45)
[2017-08-16] MEDS: MORPHINE SULFATE 2 MG/ML INJ IV PUSH PRN ×3 (02:40→11:44)
[2017-08-16 04:00] VITALS: BP 121/71; PULSE 102; RESP 20; TEMP 98.7; O2SAT 91
[2017-08-16 08:00] VITALS: BP 121/77; PULSE 78; RESP 20; TEMP 98.6; O2SAT 97
[2017-08-16] MEDS ORDERED: SPIRONOLACTONE 50 MG TAB PO SCH (09:00)
[2017-08-16] MEDS ORDERED: TIOTROPIUM BROMIDE 18 MCG INH INH SCH ×2 (09:00)
[2017-08-16] MEDS ORDERED: BUDESONIDE-FORMOTEROL 160/4.5 MCG INHALER INH SCH (09:00)
[2017-08-16] MEDS ORDERED: FUROSEMIDE 40 MG TAB PO SCH (09:00)
[2017-08-16] MEDS ORDERED: LORATADINE 10 MG TAB PO SCH (09:00)
[2017-08-16] MEDS: ALBUTEROL SULFATE 90 MCG/ACT HFA 18 GM INHALER INH SCH ×2 (09:00→13:00)
--- NOTE | 2017-08-16 10:20 | HHI.HP ---
[facility] Miladis Huffman MD Admission Diagnosis Worsening ascites/shortness of breath/tachycardia Diagnoses: (1) Poorly controlled ascites Diagnosis: Principal Chief Complaint: Worsening abdominal distention, pain, and dyspnea on exertion. Travel History International Travel<30 Days: No Contact w/Intl Traveler <30 Da: No Traveled to Known Affected Are: No History of Present Illness This is a 56-year-old male patient with a known medical history of cirrhosis, ascites who presented to the ED with worsening abdominal distention, pain and shortness of breath on exertion. Patient states that his last paracentesis was six weeks ago and patient has complaints that his abdomen has progressively become more distended over the last month and has had increasing pain and associated dyspnea due to the distention. He denies any recent fever, chills, nausea, vomiting, diarrhea or dysuria. Patient denies any changes in medicines. PCP is Dr. Huffman. 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 Patient does admit to continue drinking 6-8 beers daily. Review of Systems Constitutional: COMPLAINS OF: Fever, Chills Eyes: DENIES: Blurred vision Respiratory: COMPLAINS OF: Shortness of breath, DENIES: Cough Cardiovascular: DENIES: Chest pain, Palpitations Gastrointestinal: COMPLAINS OF: Abdominal pain, Nausea, Vomiting, DENIES: Constipation, Diarrhea Musculoskeletal: DENIES: Joint pain Hematologic/lymphatic: DENIES: Bruising Psychiatric: COMPLAINS OF: Anxiety Except as stated in HPI: all other systems reviewed are Neg Past Family Social History Past Medical History Idiopathic urticarial angioedema Reported history of coronary artery disease and myocardial infarction Alcoholism COPD BPH Past Surgical History Multiple paracentesis Reported Medications Active Aldactone (Spironolactone) 50 Mg Tab 50 Mg PO BID@09,18 Furosemide 40 Mg Tab 40 Mg PO DAILY Advair Diskus Inh (Fluticasone-Salmeterol Inh) 500-50 Mcg/Blist Aer 1 Puff INH BID Rinse mouth after use. Claritin (Loratadine) 10 Mg Cap 10 Mg PO DAILY Spiriva Handihaler (Tiotropium Inh) 18 Mcg Cap 18 Mcg INH DAILY 1 capsule = 18 mcg Ranitidine (Ranitidine HCl) 150 Mg Tab 150 Mg PO DAILY Combivent Respimat Inh (Ipratropium-Albuterol Inh) 20-100 Usp/Act Aero 1 Puff INH Q6HR Allergies: Coded Allergies: No Known Allergies (Verified Adverse Reaction, Unknown, 08/15/17) Uncoded Allergies: NKA (Allergy, Unknown, 04/15/03) Active Ordered Medications Current Medications Medications (Trade) Dose Ordered Sig/Curtis Route Start Time Stop Time Status Last Admin (Lasix) 40 mg DAILY PO 08/16/17 09:00 (Claritin) 10 mg DAILY PO 08/16/17 09:00 (Aldactone) 50 mg BID@ PO 08/16/17 09:00 (Symbicort 160-4.5 Mcg Inh) 1 puff BID INH 08/16/17 09:00 (Spiriva Inh) 18 mcg DAILY INH 08/16/17 09:00 (Pepcid) 20 mg BID PO 08/15/17 21:00 08/15/17 21:40 (Ventolin Hfa Inh) 2 puff QID INH 08/16/17 09:00 (Morphine Inj) 2 mg Q4H PRN IV PUSH 08/15/17 22:15 08/16/17 06:42 (Duoneb Neb) 1 ampule Q2HR NEB PRN NEB 08/15/17 23:45 Family History Denies any significant family medical history. Social History Patient smokes 2-3 cigarettes per day for over fifty years. Admits to drinking 6-8 beers per day. Does admit to occasional marijuana use. Physical Exam Vital Signs Vital Signs Date Time Temp Pulse Resp B/P (MAP) Pulse Ox O2 Delivery O2 Flow Rate FiO2 08/16/17 04:00 98.7 102 20 121/71 (88) 91 08/15/17 22:30 87 08/15/17 22:13 75 16 119/80 (93) 96 08/15/17 22:00 98.1 97 20 104/61 (75) 96 08/15/17 20:13 88 18 119/76 (90) 96 Room Air 08/15/17 18:56 94 18 94/65 (75) 96 Room Air 08/15/17 17:44 94 20 150/85 (106) 96 08/15/17 16:02 99.1 102 16 148/92 (110) 95 Physical Exam GENERAL: This is a well-nourished, well-developed patient, lying in bed in no apparent distress. SKIN: No rashes, ecchymoses or lesions. Cool and dry. HEAD: Atraumatic. Normocephalic. EYES: Pupils equal round and reactive. Extraocular motions intact. No scleral icterus. No injection or drainage. ENT: Nose without bleeding, purulent drainage or septal hematoma. Throat without erythema, tonsillar hypertrophy or exudate. Uvula midline. Airway patent. NECK: Trachea midline. No JVD. Supple. CARDIOVASCULAR: Regular rate and rhythm without murmurs, gallops, or rubs. RESPIRATORY: Clear to auscultation. Breath sounds equal bilaterally. No wheezes , rales, or rhonchi. GASTROINTESTINAL: Abdomen soft, round, distended. No guarding. Mild pain to palpation upper left quadrant. Active bowel sounds. MUSCULOSKELETAL: Extremities without clubbing, cyanosis, or edema. No joint tenderness, effusion, or edema noted. NEUROLOGICAL: Awake and alert. Cranial nerves II through XII intact. Motor and sensory grossly within normal limits. Five out of 5 muscle strength in all muscle groups. Normal speech. Laboratory Laboratory Tests Test 08/15/17 17:35 White Blood Count 3.3 Red Blood Count 2.77 Hemoglobin 10.4 Hematocrit 31.8 Mean Corpuscular Volume 114.9 Mean Corpuscular Hemoglobin 37.7 Mean Corpuscular Hemoglobin Concent 32.8 Red Cell Distribution Width 14.8 Platelet Count 90 Mean Platelet Volume 7.3 Neutrophils (%) (Auto) 64.3 Lymphocytes (%) (Auto) 23.2 Monocytes (%) (Auto) 8.8 Eosinophils (%) (Auto) 2.7 Basophils (%) (Auto) 1.0 Neutrophils # (Auto) 2.1 Lymphocytes # (Auto) 0.8 Monocytes # (Auto) 0.3 Eosinophils # (Auto) 0.1 Basophils # (Auto) 0.0 CBC Comment DIFF FINAL Differential Comment Prothrombin Time 15.0 Prothromb Time International Ratio 1.5 Activated Partial Thromboplast Time 30.1 Blood Urea Nitrogen 5 Creatinine 0.92 Random Glucose 115 Total Protein 6.8 Albumin 2.3 Calcium Level 7.8 Alkaline Phosphatase 80 Aspartate Amino Transf (AST/SGOT) 37 Alanine Aminotransferase (ALT/SGPT) 14 Total Bilirubin 2.7 Sodium Level 138 Potassium Level 4.1 Chloride Level 104 Carbon Dioxide Level 25.9 Anion Gap 8 Estimat Glomerular Filtration Rate 85 Result Diagram: 08/15/17 1735 08/15/17 1735 Imaging Last Impressions Cyst Biopsy Asp-Paracentesis US 08/16/17 0000 Signed Impressions: Service Date/Time: Wednesday, August 16, 2017 07:49 - CONCLUSION: Uncomplicated ultrasound guided paracentesis. Eloy Patel MD Septic Shock Reassessment Septic shock perfusion: reassessment completed Caprini VTE Risk Assessment Caprini VTE Risk Assessment: No/Low Risk (score <= 1) Caprini Risk Assessment Model Point Value = 1 Point Value = 2 Point Value = 3 Point Value = 5 Age 41-60 Minor surgery BMI > 25 kg/m2 Swollen legs Varicose veins or History of unexplained or recurrent spontaneous Oral contraceptives or hormone replacement Sepsis (< 1 month) Serious lung disease, including pneumonia (< 1 month) Abnormal pulmonary function Acute myocardial infarction Congestive heart failure (< 1 month) History of inflammatory bowel disease Medical patient at bed rest Age 61-74 Arthroscopic surgery Major open surgery (> 45 min) Laparoscopic surgery (> 45 min) Malignancy Confined to bed (> 72 hours) Immobilizing plaster cast Central venous access Age >= 75 History of VTE Family history of VTE Factor V Leiden Prothrombin [id number] Lupus anticoagulant Anticardiolipin antibodies Elevated serum homocysteine Heparin-induced thrombocytopenia Other congenital or acquired thrombophilia Stroke (< 1 month) Elective arthroplasty Hip, pelvis, or leg fracture Acute spinal cord injury (< 1 month) Prophylaxis Regimen Total Risk Factor Score Risk Level Prophylaxis Regimen 0-1 Low Early ambulation 2 Moderate Order ONE of the following: *Sequential Compression Device (SCD) *Heparin 5000 units SQ BID 3-4 Higher Order ONE of the following medications: *Heparin 5000 units SQ TID *Enoxaparin/Lovenox 40 mg SQ daily (WT < 150 kg, CrCl > 30 mL/min) *Enoxaparin/Lovenox 30 mg SQ daily (WT < 150 kg, CrCl > 10-29 mL/min) *Enoxaparin/Lovenox 30 mg SQ BID (WT < 150 kg, CrCl > 30 mL/min) AND/OR *Sequential Compression Device (SCD) 5 or more Highest Order ONE of the following medications: *Heparin 5000 units SQ TID (Preferred with Epidurals) *Enoxaparin/Lovenox 40 mg SQ daily (WT < 150 kg, CrCl > 30 mL/min) *Enoxaparin/Lovenox 30 mg SQ daily (WT < 150 kg, CrCl > 10-29 mL/min) *Enoxaparin/Lovenox 30 mg SQ BID (WT < 150 kg, CrCl > 30 mL/min) AND *Sequential Compression Device (SCD) Assessment and Plan Problem List: (1) Cirrhosis of liver with ascites ICD Code: K74.60 - Unspecified cirrhosis of liver Plan: Patient has been admitted. Underwent a paracentesis with radiology today , reports of almost 16 L removed from abdomen. Patient states he feels much better. Pain control with morphine IV. Continue home Lasix and spironolactone. Plan for discharge home today. Recommend follow-up with PCP and GI specialist. (2) COPD (chronic obstructive pulmonary disease) ICD Code: J44.9 - Chronic obstructive pulmonary disease, unspecified Plan: Not an acute exacerbation. Continue home inhalers. Duo nebs available as needed. Physician Certification 2 Midnight Certification Type: Admission for Inpatient Services Order for Inpatient Services The services are ordered in accordance with Medicare regulations or non- Medicare payer requirements, as applicable. In the case of services not specified as inpatient-only, they are appropriately provided as inpatient services in accordance with the 2-midnight benchmark. Estimated LOS (days): 1 1 days is the estimated time the patient will need to remain in the hospital, assuming treatment plan goals are met and no additional complications. Post-Hospital Plan: Home Jessika Clarke Aug 16, 2017 10:20
[2017-08-16] MEDS: FAMOTIDINE 20 MG TAB PO SCH (11:44)
--- NOTE | 2017-08-16 13:19 | RADRPT ---
EXAM DATE/TIME: 08/16/2017 07:49 [facility] COMPARISON: US GUIDED ABD PARACENTESIS, April 14, 2017, 8:14. INDICATIONS : Ascites. MEDICAL HISTORY : Myocardial infarction. Chronic obstructive pulmonary disease. Cirrhosis. Liver mass. ETOH abuse. Tini tis. Coronary artery disease. Hypertension. BPH. Bilateral plantar fascitis. SURGICAL HISTORY : Paracentesis x 2. ENCOUNTER: Subsequent ACUITY: 2 months PAIN SCORE: 0/10 LOCATION: Right lower quadrant FLUID: Total volume of 16,300 cc of clear, yellow fluid was removed. Fluid was discarded. Paracentesis was therapeutic only. Post procedure scanning reveals no hematoma or other complication. TECHNIQUE: 1. Ultrasound guidance for abdominal paracentesis. 2. Paracentesis. The risks, benefits, and alternatives to ultrasound guided paracentesis were explained to the patient in detail including the risk of bleeding and infection. Written and verbal informed consent was obt ained. With the patient on the ultrasound table, ultrasound imaging was used to select the most appropriate approach for paracentesis. Overlying skin was prepped and draped in the usual sterile fashion and wi th a local anesthetic, a dermatotomy was made with an 11 blade scalpel. A 6 [place] [id number] ca theter was introduced into the peritoneal cavity and fluid was collected. The patient tolerated the procedure well and left the ultrasound suite in stable condition. CONCLUSION: Uncomplicated ultrasound guided paracentesis. Eloy Patel MD on August 16, 2017 at 13:16 Board Certified Radiologist. This report was verified electronically.
[2017-08-16] MEDS ORDERED: OXYC-392 PO (15:35)
--- NOTE | 2017-08-16 15:37 | HHI.DCPOC ---
Discharge Care Plan Diagnosis: (1) Cirrhosis of liver with ascites Goals to Promote Your Health * To prevent worsening of your condition and complications * To maintain your health at the optimal level Directions to Meet Your Goals Take your medications as prescribed Follow your dietary instruction Follow activity as directed Keep your appointments as scheduled Take your immunizations and boosters as scheduled If your symptoms worsen call your PCP, if no PCP go to Urgent Care Center or Emergency Room Smoking is Dangerous to Your Health. Avoid second hand smoke Call the 24-hour hour crisis hotline for domestic abuse at Jessika Clarke Aug 16, 2017 15:37
[2017-08-16 16:00] VITALS: BP 125/80; PULSE 100; RESP 20; TEMP 98.4; O2SAT 97
== END 2017-08-16 17:00 | disposition home or self-care (01) | DRG 434 ==
LOC: PHED 16:00 → PHEDA 18:53 → PH3B 22:04
PROVIDERS: ADMIT Hospitalist; ATTEND Hospitalist
PROC: 0W9G3ZZ Drainage of Peritoneal Cavity, Percutaneous Approach (ICD-10-PCS; principal; 2017-08-16)
DX: K70.31 Alcoholic cirrhosis of liver with ascites (principal); J44.9 Chronic obstructive pulmonary disease, unspecified; F10.20 Alcohol dependence, uncomplicated; F12.90 Cannabis use, unspecified, uncomplicated; I25.10 Atherosclerotic heart disease of native coronary artery without angina pectoris; I25.2 Old myocardial infarction; F17.210 Nicotine dependence, cigarettes, uncomplicated; N40.0 Benign prostatic hyperplasia without lower urinary tract symptoms
CPT/HCPCS: 49083; 80053; 85025; 85610; 85730; 99285; C1729; J2270

== ENCOUNTER 2017-10-10 12:54 | Emergency (ER) | payer SELFPAY ==
[~2017-10-10] VITALS: Ht 172.7 cm; Wt 112.0 kg
[~2017-10-10 12:54] MED LIST changes: -BETA0.052 TOPICAL; -Lactulose Liq PO; +OXYC-392 PO; -TERA1CAP3 PO
[2017-10-10 12:57] VITALS: BP 156/71; PULSE 106; RESP 20; TEMP 99.1; O2SAT 95
[2017-10-10] MEDS ORDERED: MORPHINE SULFATE 4 MG/ML INJ IV PUSH ONE (13:15)
[2017-10-10] MEDS ORDERED: ONDANSETRON HCL 4 MG/2 ML VIAL IVP ONE (13:15)
[2017-10-10] MEDS ORDERED: SODIUM CHLORIDE 0.9% FLUSH 10 ML FLUSH IV FLUSH PRN (13:15)
--- NOTE | 2017-10-10 13:20 | PD ---
HPI Chief Complaint: General Weakness Time Seen by Provider: 13:03 Travel History International Travel<30 days: No Contact w/Intl Traveler<30days: No Traveled to known affect area: No History of Present Illness HPI The patient is a 56-year-old male who presents to the emergency department for abdominal distention and pain. The patient has a history of alcoholic cirrhosis, jaundice, and ascites with previous paracentesis. The patient's last paracentesis was performed last month by interventional radiology. The patient states he is followed by Dr. Solano, has been referred to a building surveyor, Dr. Lindsay. However, his appointment is later this month, he states he is uncomfortable. He notes increasing pain, dyspnea with exertion, and abdominal distention. Last alcoholic drink was 3-4 weeks ago per his report. Symptoms are moderate. Exacerbated by history of alcohol abuse and ascites. He has had alleviation of the past with paracentesis. No fever. PFSH Past Medical History Autoimmune Disease: No Blood Disorders: No Anxiety: Yes Depression: No Cancer: No Cardiovascular Problems: Yes ([place]) COPD: Yes Coronary Artery Disease: Yes Diabetes: No Diminished Hearing: No Endocrine: No Gastrointestinal Disorders: Yes Genitourinary: No Hypertension: Yes Immune Disorder: No Musculoskeletal: Yes (bilateral plantar faseitis) Neurologic: No Reproductive: No Respiratory: Yes Myocardial Infarction: Yes Past Surgical History Abdominal Surgery: Yes (paracentesis x2) Other Surgery: No Social History Alcohol Use: Yes Tobacco Use: Yes Substance Use: Yes (marijuana) Allergies-Medications (Allergen,Severity, Reaction): Coded Allergies: No Known Allergies (Verified Adverse Reaction, Unknown, 10/10/17) Uncoded Allergies: NKA (Allergy, Unknown, 04/15/03) Reported Meds & Prescriptions Reported Meds & Active Scripts Active Advair Diskus Inh (Fluticasone-Salmeterol Inh) 500-50 Mcg/Blist Aer 1 Puff INH BID Rinse mouth after use. Claritin (Loratadine) 10 Mg Cap 10 Mg PO DAILY Spiriva Handihaler (Tiotropium Inh) 18 Mcg Cap 18 Mcg INH DAILY 1 capsule = 18 mcg Ranitidine (Ranitidine HCl) 150 Mg Tab 150 Mg PO DAILY Combivent Respimat Inh (Ipratropium-Albuterol Inh) 20-100 Retirement/Act Aero 1 Puff INH Q6HR Review of Systems Except as stated in HPI: all other systems reviewed are Neg Cardiovascular: Positive: Dyspnea on exertion, No: Chest Pain or Discomfort Gastrointestinal: Positive: Abdominal Pain Musculoskeletal: Positive: Edema Physical Exam Narrative GENERAL: Awake, alert, 56-year-old male appears older than his stated age. SKIN: Focused skin assessment warm/dry. HEAD: Atraumatic. Normocephalic. EYES: Mild icterus. ENT: No nasal bleeding or discharge. Mucous membranes pink and moist. NECK: Trachea midline. No JVD. CARDIOVASCULAR: Regular, tachycardic with a heart rate of 100. RESPIRATORY: No accessory muscle use. Clear to auscultation. Breath sounds equal bilaterally. GASTROINTESTINAL: Abdomen distended, positive fluid wave. MUSCULOSKELETAL: No obvious deformities. No clubbing. No cyanosis. Trace edema. NEUROLOGICAL: Awake and alert. No obvious cranial nerve deficits. Motor grossly within normal limits. Normal speech. PSYCHIATRIC: Appropriate mood and affect; insight and judgment normal. Data Data Last Documented VS Vital Signs Date Time Temp Pulse Resp B/P (MAP) Pulse Ox O2 Delivery O2 Flow Rate FiO2 10/10/17 13:21 98 10/10/17 12:57 99.1 106 20 156/71 (99) Orders Orders Complete Blood Count With Diff (10/10/17 13:07) Comprehensive Metabolic Panel (10/10/17 13:07) Lipase (10/10/17 13:07) Prothrombin Time / Inr (Pt) (10/10/17 13:07) Act Partial Throm Time (Ptt) (10/10/17 13:07) Iv Access Insert/Monitor (10/10/17 13:07) Ecg Monitoring (10/10/17 13:07) Oximetry (10/10/17 13:07) Morphine Inj (Morphine Inj) (10/10/17 13:15) Ondansetron Inj (Zofran Inj) (10/10/17 13:15) Sodium Chloride 0.9% Flush (Ns Flush) (10/10/17 13:15) Ed Poc Ultrasound (10/10/17 13:07) Labs Laboratory Tests Test 10/10/17 13:15 White Blood Count 4.0 TH/MM3 Red Blood Count 2.42 MIL/MM3 Hemoglobin 9.5 GM/DL Hematocrit 28.4 % Mean Corpuscular Volume 117.0 FL Mean Corpuscular Hemoglobin 39.0 PG Mean Corpuscular Hemoglobin Concent 33.3 % Red Cell Distribution Width 14.7 % Platelet Count 126 TH/MM3 Mean Platelet Volume 7.5 FL Neutrophils (%) (Auto) 58.2 % Lymphocytes (%) (Auto) 23.9 % Monocytes (%) (Auto) 10.2 % Eosinophils (%) (Auto) 3.0 % Basophils (%) (Auto) 4.7 % Neutrophils # (Auto) 2.3 TH/MM3 Lymphocytes # (Auto) 1.0 TH/MM3 Monocytes # (Auto) 0.4 TH/MM3 Eosinophils # (Auto) 0.1 TH/MM3 Basophils # (Auto) 0.2 TH/MM3 CBC Comment DIFF FINAL Differential Comment Prothrombin Time 16.5 SEC Prothromb Time International Ratio 1.6 RATIO Activated Partial Thromboplast Time 29.8 SEC Blood Urea Nitrogen 9 MG/DL Creatinine 1.00 MG/DL Random Glucose 112 MG/DL Total Protein 7.1 GM/DL Albumin 2.2 GM/DL Calcium Level 7.8 MG/DL Alkaline Phosphatase 79 U/L Aspartate Amino Transf (AST/SGOT) 38 U/L Alanine Aminotransferase (ALT/SGPT) 15 U/L Total Bilirubin 4.4 MG/DL Sodium Level 137 MEQ/L Potassium Level 3.3 MEQ/L Chloride Level 104 MEQ/L Carbon Dioxide Level 22.9 MEQ/L Anion Gap 10 MEQ/L Estimat Glomerular Filtration Rate 77 ML/MIN Lipase 64 U/L MDM Medical Decision Making Medical Screen Exam Complete: Yes Emergency Medical Condition: Yes Medical Record Reviewed: Yes Interpretation(s) Laboratory Tests Test 10/10/17 13:15 White Blood Count 4.0 TH/MM3 Red Blood Count 2.42 MIL/MM3 Hemoglobin 9.5 GM/DL Hematocrit 28.4 % Mean Corpuscular Volume 117.0 FL Mean Corpuscular Hemoglobin 39.0 PG Mean Corpuscular Hemoglobin Concent 33.3 % Red Cell Distribution Width 14.7 % Platelet Count 126 TH/MM3 Mean Platelet Volume 7.5 FL Neutrophils (%) (Auto) 58.2 % Lymphocytes (%) (Auto) 23.9 % Monocytes (%) (Auto) 10.2 % Eosinophils (%) (Auto) 3.0 % Basophils (%) (Auto) 4.7 % Neutrophils # (Auto) 2.3 TH/MM3 Lymphocytes # (Auto) 1.0 TH/MM3 Monocytes # (Auto) 0.4 TH/MM3 Eosinophils # (Auto) 0.1 TH/MM3 Basophils # (Auto) 0.2 TH/MM3 CBC Comment DIFF FINAL Differential Comment Prothrombin Time 16.5 SEC Prothromb Time International Ratio 1.6 RATIO Activated Partial Thromboplast Time 29.8 SEC Blood Urea Nitrogen 9 MG/DL Creatinine 1.00 MG/DL Random Glucose 112 MG/DL Total Protein 7.1 GM/DL Albumin 2.2 GM/DL Calcium Level 7.8 MG/DL Alkaline Phosphatase 79 U/L Aspartate Amino Transf (AST/SGOT) 38 U/L Alanine Aminotransferase (ALT/SGPT) 15 U/L Total Bilirubin 4.4 MG/DL Sodium Level 137 MEQ/L Potassium Level 3.3 MEQ/L Chloride Level 104 MEQ/L Carbon Dioxide Level 22.9 MEQ/L Anion Gap 10 MEQ/L Estimat Glomerular Filtration Rate 77 ML/MIN Lipase 64 U/L Differential Diagnosis Differential diagnosis includes alcoholic cirrhosis, ascites, hyponatremia, hypoalbuminemia, noncompliance. Narrative Course IV was established, labs were drawn and sent, and the patient was placed on cardiac telemetry monitoring and continuous pulse oximetry monitoring. Bedside ultrasound was performed which reveals diffuse ascites. The patient was administered morphine and Zofran intravenously. The patient's sodium level is normal. Platelets normal. INR is 1.6, patient is not on anticoagulation, most likely secondary to liver failure. Patient will be provided outpatient radiology form so he can obtain paracentesis via interventional radiology on an outpatient basis. The patient is advised to call today to make an appointment for tomorrow. He will be provided a copy of his labs at discharge. Procedures Procedure Narrative Bedside ultrasound was performed using a curvilinear probe which reveals diffuse ascites. The patient tolerated the procedure without difficulty and there was no obvious complications. Diagnosis Primary Impression: Cirrhosis of liver with ascites Qualified Codes: K70.31 - Alcoholic cirrhosis of liver with ascites Patient Instructions: General Instructions Additional Instructions: Call interventional radiology for outpatient paracentesis as directed. Follow- up with your primary physician. Follow-up with gastroenterology as previously directed. Abstain from alcohol. Monitor fluid intake. Med/Other Pt SpecificInfo: No Change to Meds Disposition: 01 DISCHARGE HOME Condition: Stable Abraham Grimm MD Oct 10, 2017 13:20
[2017-10-10 13:21] VITALS: O2SAT 98
[2017-10-10 13:33] LABS: AUTOMATED NEUTROPHIL # 2.3 TH/MM3 (1.8-7.7); BASOPHIL # 0.2 TH/MM3 (0-0.2); BASOPHIL % 4.7 % (0.0-2.0); EOSINOPHIL # 0.1 TH/MM3 (0-0.4); HEMATOCRIT 28.4 % (39.0-51.0); HEMOGLOBIN 9.5 GM/DL (13.0-17.0); LYMPH % 23.9 % (9.0-44.0); MEAN CORPUSCULAR HGB CONC 33.3 % (32.0-36.0); MEAN PLATELET VOLUME 7.5 FL (7.0-11.0); MONO % 10.2 % (0.0-8.0); MONOCYTE # 0.4 TH/MM3 (0-0.9); NEUT % 58.2 % (16.0-70.0); PLATELET COUNT 126 TH/MM3 (150-450); RED BLOOD COUNT 2.42 MIL/MM3 (4.50-5.90); RED CELL DISTRIBUTION WIDTH 14.7 % (11.6-17.2)
[2017-10-10 13:44] LABS: CHLORIDE 104 MEQ/L (98-107); SODIUM (NA) 137 MEQ/L (136-145)
[2017-10-10 13:47] LABS: ALBUMIN 2.2 GM/DL (3.4-5.0); BICARBONATE 22.9 MEQ/L (21.0-32.0); CALCIUM 7.8 MG/DL (8.5-10.1); GLUCOSE,RANDOM 112 MG/DL (74-106)
[2017-10-10 13:48] LABS: BLOOD UREA NITROGEN 9 MG/DL (7-18); INTERNATIONAL NORMALIZED RATIO 1.6 RATIO; PROTHROMBIN TIME - PATIENT 16.5 SEC (9.8-11.6)
[2017-10-10 13:50] LABS: ALT (GPT) 15 U/L (12-78); AST (GOT) 38 U/L (15-37)
[2017-10-10 13:51] LABS: GLOMERULAR FILTRATION RATE 77 ML/MIN (>89)
[2017-10-10 13:52] LABS: TOTAL BILIRUBIN ADULT 4.4 MG/DL (0.2-1.0); TOTAL PROTEIN 7.1 GM/DL (6.4-8.2)
[2017-10-10 13:53] LABS: ALKALINE PHOSPHATASE 79 U/L (45-117)
[2017-10-10] MEDS ORDERED: OXYC-392 PO (14:43)
[2017-10-10 14:46] VITALS: BP 120/76
== END 2017-10-10 15:07 | disposition home or self-care (01) ==
LOC: PHED 12:54
DX: K70.31 Alcoholic cirrhosis of liver with ascites (principal); I10 Essential (primary) hypertension; I25.2 Old myocardial infarction; I25.10 Atherosclerotic heart disease of native coronary artery without angina pectoris; J44.9 Chronic obstructive pulmonary disease, unspecified; F41.9 Anxiety disorder, unspecified; Z72.0 Tobacco use
CPT/HCPCS: 80053; 83690; 85025; 85610; 85730; 96374; 96375; 99284; J2270; J2405

== ENCOUNTER 2017-11-04 14:31 | Inpatient (IN) | payer SELFPAY ==
[~2017-11-04] VITALS: Ht 172.7 cm; Wt 79.9 kg
[~2017-11-04 14:31] MED LIST changes: -ALDA50TA2 PO; -FURO40TA PO
[2017-11-04 14:59] VITALS: BP 111/83; PULSE 85; RESP 16; TEMP 98.7; O2SAT 100
[2017-11-04] MEDS ORDERED: LIDOCAINE HCL 1% 30 ML VIAL SQ ONE (15:11)
[2017-11-04] MEDS ORDERED: FURO40TA PO (15:12)
[2017-11-04] MEDS ORDERED: HYDROmorphone HCL PF 2 MG/ML VIAL IVS ONE (15:30)
[2017-11-04] MEDS ORDERED: ONDANSETRON HCL 4 MG/2 ML VIAL IVP ONE (15:30)
[2017-11-04] MEDS ORDERED: SODIUM CHLORIDE 0.9% FLUSH 10 ML FLUSH IV FLUSH PRN ×2 (15:30→19:45)
--- NOTE | 2017-11-04 15:44 | PD ---
HPI Chief Complaint: Abdominal Pain Time Seen by Provider: 15:08 Travel History International Travel<30 days: No Contact w/Intl Traveler<30days: No Traveled to known affect area: No History of Present Illness HPI 57-year-old male arrives with complaint of abdominal pain since this morning. It is severe and generalized. He has a history of cirrhosis of the liver with ascites. He reports a discharge from [facility] about 1 week prior. 3 paracenteses yielded a total of 36 L fluid, 12 L each time. He has had some shooting pains all week however pain became constant and severe today. Positive nausea and vomiting reported. Generalized sensation of coldness is reported. No diarrhea. No chest pain or shortness of breath. PFSH Past Medical History Autoimmune Disease: No Blood Disorders: No Anxiety: Yes Depression: No Cancer: No Cardiovascular Problems: Yes ([place]) COPD: Yes Coronary Artery Disease: Yes Diabetes: No Diminished Hearing: No Endocrine: No Gastrointestinal Disorders: Yes Genitourinary: No Hypertension: Yes Immune Disorder: No Musculoskeletal: Yes (bilateral plantar faseitis) Neurologic: No Reproductive: No Respiratory: Yes Myocardial Infarction: Yes Tetanus Vaccination: < 5 Years Influenza Vaccination: No Past Surgical History Abdominal Surgery: Yes (paracentesis x2) Other Surgery: No Social History Alcohol Use: Yes Tobacco Use: Yes Substance Use: Yes (marijuana) Allergies-Medications (Allergen,Severity, Reaction): Coded Allergies: No Known Allergies (Verified Adverse Reaction, Unknown, 11/04/17) Reported Meds & Prescriptions Reported Meds & Active Scripts Active Advair Diskus Inh (Fluticasone-Salmeterol Inh) 500-50 Mcg/Blist Aer 1 Puff INH BID Rinse mouth after use. Combivent Respimat Inh (Ipratropium-Albuterol Inh) 20-100 Intermediate/Act Aero 1 Puff INH Q6HR Reported Furosemide 40 Mg Tab 40 Mg PO DAILY Review of Systems Except as stated in HPI: all other systems reviewed are Neg General / Constitutional: No: Fever Physical Exam Narrative GENERAL: 57-year-old male chronically ill in appearance moderate distress secondary to pain and/or anxiety Vital Signs Date Time Temp Pulse Resp B/P (MAP) Pulse Ox O2 Delivery O2 Flow Rate FiO2 11/04/17 14:59 98.7 85 16 111/83 (92) 100 SKIN: Warm and dry. HEAD: Atraumatic. Normocephalic. EYES: Pupils equal and round. No scleral icterus. No injection or drainage. ENT: No nasal bleeding or discharge. Mucous membranes pink and moist. NECK: Trachea midline. No JVD. CARDIOVASCULAR: Regular rate and rhythm. RESPIRATORY: No accessory muscle use. Clear to auscultation. Breath sounds equal bilaterally. GASTROINTESTINAL: Soft. Diffuse TTP. Prominent abdomen c/w ascites. MUSCULOSKELETAL: Extremities without clubbing, cyanosis, or edema. No obvious deformities. NEUROLOGICAL: Awake and alert. No obvious cranial nerve deficits. Motor grossly within normal limits. Five out of 5 muscle strength in the arms and legs. Normal speech. PSYCHIATRIC: Appropriate mood and affect; insight and judgment normal. Data Data Last Documented VS Vital Signs Date Time Temp Pulse Resp B/P (MAP) Pulse Ox O2 Delivery O2 Flow Rate FiO2 11/04/17 14:59 98.7 85 16 111/83 (92) 100 MDM Medical Decision Making Medical Screen Exam Complete: Yes Emergency Medical Condition: Yes Medical Record Reviewed: Yes Differential Diagnosis Constipation, Gastritis, Acute Cholecystitis, Biliary Colic, Pancreatitis, PARK , Hepatitis, Bowel Obstruction, Cystitis, Mesenteric Ischemia, AAA, Appendicitis , Renal Stone/Hydronephrosis, GERD, perforated viscous Narrative Course Lactic acid is 6.7 BUN 15 creatinine 1.5 GFR 40 Glucose 140 Calcium 8.2 Total bilirubin 5.8 AST 167 Albumin 2.7 Lipase 108 CBC is 7.5 for white blood cells, 9.8 for hemoglobin and platelets 114 CT abdomen pelvis reveals cirrhosis and portal hypertension with a large volume of ascites as well as atherosclerosis of abdominal aortic aneurysm (aneurysm is been observed previously) Patient will be admitted for ongoing pain control for repeat blood work. Discussed with Dr. Patrick Deng started. Possible SBP. Diagnosis Primary Impression: Cirrhosis of liver with ascites Qualified Codes: K70.31 - Alcoholic cirrhosis of liver with ascites Additional Impressions: Liver masses Hyponatremia Admitting Information Admitting Physician Requests: Admit Bal Echeverria MD Nov 04, 2017 15:44
[2017-11-04 16:05] VITALS: O2SAT 97
[2017-11-04 16:59] LABS: BASOPHIL # 0.1 TH/MM3 (0-0.2); BASOPHIL % 1.4 % (0.0-2.0); EOSINOPHIL % 0.5 % (0.0-4.0); HEMATOCRIT 29.9 % (39.0-51.0); HEMOGLOBIN 9.8 GM/DL (13.0-17.0); LYMPH % 10.5 % (9.0-44.0); LYMPHOCYTE # 0.8 TH/MM3 (1.0-4.8); MEAN CORPUSCULAR HEMOGLOBIN 38.8 PG (27.0-34.0); MEAN CORPUSCULAR HGB CONC 32.9 % (32.0-36.0); MEAN PLATELET VOLUME 8.1 FL (7.0-11.0); MONO % 7.6 % (0.0-8.0); MONOCYTE # 0.6 TH/MM3 (0-0.9); PLATELET COUNT 114 TH/MM3 (150-450); RED BLOOD COUNT 2.53 MIL/MM3 (4.50-5.90); RED CELL DISTRIBUTION WIDTH 14.1 % (11.6-17.2); WHITE BLOOD COUNT 7.5 TH/MM3 (4.0-11.0)
[2017-11-04 17:06] LABS: CHLORIDE 95 MEQ/L (98-107); SODIUM (NA) 132 MEQ/L (136-145)
[2017-11-04 17:09] LABS: CALCIUM 8.2 MG/DL (8.5-10.1)
[2017-11-04 17:10] LABS: ALBUMIN 2.7 GM/DL (3.4-5.0); BICARBONATE 23.5 MEQ/L (21.0-32.0); BLOOD UREA NITROGEN 15 MG/DL (7-18); GLUCOSE,RANDOM 140 MG/DL (74-106)
[2017-11-04 17:13] LABS: ALT (GPT) 52 U/L (12-78); AST (GOT) 167 U/L (15-37); GLOMERULAR FILTRATION RATE 48 ML/MIN (>89)
[2017-11-04 17:14] LABS: TOTAL BILIRUBIN ADULT 5.8 MG/DL (0.2-1.0); TOTAL PROTEIN 7.3 GM/DL (6.4-8.2)
[2017-11-04 17:15] LABS: ALKALINE PHOSPHATASE 99 U/L (45-117)
[2017-11-04 17:18] LABS: INTERNATIONAL NORMALIZED RATIO 1.7 RATIO; PROTHROMBIN TIME - PATIENT 16.7 SEC (9.8-11.6)
[2017-11-04] MEDS ORDERED: IOHEXOL 350 MG/ML 10 ML VIAL (for RAD DIAG) IVCONTRAST ONE (18:30)
--- NOTE | 2017-11-04 18:37 | RADRPT ---
EXAM DATE/TIME: 11/04/2017 18:11 [facility] COMPARISON: No previous studies available for comparison. INDICATIONS : Abdominal pain, end stage liver disease.SOB IV CONTRAST: 75 cc Omnipaque 350 (iohexol) IV ORAL CONTRAST: No oral contrast ingested. RADIATION DOSE: 20.03 CTDIvol (mGy) MEDICAL HISTORY : Cardiovascular disease. Hypertension. Chronic obstructive pulmonary disease.Tinitis, ascites SURGICAL HISTORY : Paracenthesis. ENCOUNTER: Initial ACUITY: 1 week PAIN SCALE: 10/10 LOCATION: Bilateral lower abdomen TECHNIQUE: Volumetric scanning of the abdomen and pelvis was performed. Using automated exposure control and ad justment of the mA and/or kV according to patient size, radiation dose was kept as low as reasonably achievable to obtain optimal diagnostic quality images. DICOM format image data is available electro nically for review and comparison. FINDINGS: The lung bases are clear. The osseous structures demonstrate mild degenerative changes of the spine. There are numerous esophageal varices identified as well as varices in the gastrohepatic ligament and omentum. There is a large volume of ascites throughout the abdomen and pelvis. There a few tiny righ t and left renal cysts. The spleen is enlarged and the liver is cirrhotic, spleen measuring up to 17. 5 cm in cephalocaudal dimension. There is atherosclerotic calcification of the aorta and iliac vessel s, and aneurysmal dilatation of the infrarenal abdominal aorta measuring 3.7 x 3.8 cm in AP transvers e dimension on image 39. There is a mass in the liver posteriorly measuring 4.0 centimeters and an ad jacent hypodense mass posteriorly in the right lobe measuring 2.6 cm. A mass is seen adjacent to the IVC in the right lobe measuring 3.3 cm. CONCLUSION: 1. Cirrhosis and portal hypertension with large volume ascites. 2. Atherosclerosis and abdominal aortic aneurysm. 3. Indeterminate low-density liver lesions are noted. These have been described previously. 4. Renal cysts. William Humphries MD on November 04, 2017 at 18:31 Board Certified Radiologist. This report was verified electronically.
[2017-11-04] MEDS ORDERED: cefTRIAXone INJ 1,000 MG in SODIUM CHLORIDE 0.9% INJ 100 ML IV ONE (19:00)
[2017-11-04 19:05] VITALS: BP 106/53; PULSE 93; RESP 18; O2SAT 97
[2017-11-04] MEDS ORDERED: DEXT 5%-NACL 0.45% 500 ML INJ 500 ML IV ONE (19:45)
[2017-11-04] MEDS ORDERED: MAGNESIUM HYDROXIDE SUSP 30 ML CUP PO PRN (19:45)
[2017-11-04] MEDS ORDERED: ONDANSETRON HCL 4 MG/2 ML VIAL IVP PRN (19:45)
[2017-11-04] MEDS ORDERED: ACETAMINOPHEN 325 MG TAB PO PRN (19:45)
[2017-11-04] MEDS ORDERED: SENNOSIDES 8.6 MG TAB PO PRN (19:45)
[2017-11-04] MEDS ORDERED: LACTULOSE SYRUP 20 GM/30 ML CUP PO PRN (19:45)
[2017-11-04] MEDS ORDERED: RESP: ALBUTEROL 2.5 MG/IPRATROPIUM 0.5 MG NEB (PRN) NEB (19:45)
[2017-11-04] MEDS ORDERED: BISACODYL 10 MG SUPP RECTAL PRN (19:45)
[2017-11-04] MEDS: SODIUM CHLORIDE 0.9% FLUSH 10 ML FLUSH IV FLUSH SCH (21:00)
[2017-11-04] MEDS: PROPRANOLOL HCL 10 MG TAB PO SCH (21:00)
[2017-11-04] MEDS: MORPHINE SULFATE 2 MG/ML SYRINGE IV PUSH PRN (21:13)
[2017-11-04] MEDS: DOCUSATE SODIUM 50 MG/SENNA 8.6 MG TAB PO SCH (21:45)
[2017-11-04 22:12] VITALS: BP 120/56; PULSE 80; RESP 18; TEMP 97.6; O2SAT 100
[2017-11-04] MEDS ORDERED: RANI150T PO (22:20)
[2017-11-04 22:54] LABS: BILIRUBIN, URINE LARGE (NEG); BLOOD, URINE NEG (NEG); GLUCOSE,URINE 100 mg/dL (NEG); KETONE, URINE TRACE mg/dL (NEG); NITRITE,URINE POS (NEG); PH, URINE 5.5 (5.0-8.5); URINE COLOR OTHER (YELLW/STRAW); URINE LEUKOCYTE ESTERASE NEG (NEG)
[2017-11-04 22:59] LABS: RBC, URINE 0-2 /hpf (0-3)
[2017-11-04 23:00] LABS: BACTERIA, URINE RARE /hpf; SQUAMOUS EPITHELIAL CELL URINE 0-5 /hpf (0-5)
[2017-11-04 23:08] VITALS: PULSE 94
[2017-11-05] VITALS (9 sets, daily range): BP systolic 93–106; BP diastolic 53–72; PULSE 79–102; RESP 16–18; TEMP 97.3–98.6; O2SAT 95–98
[2017-11-05] MEDS: MORPHINE SULFATE 2 MG/ML SYRINGE IV PUSH PRN ×2 (00:30→03:28)
[2017-11-05 06:17] LABS: AUTOMATED NEUTROPHIL # 3.6 TH/MM3 (1.8-7.7); BASOPHIL # 0.1 TH/MM3 (0-0.2); BASOPHIL % 1.2 % (0.0-2.0); EOSINOPHIL # 0.3 TH/MM3 (0-0.4); EOSINOPHIL % 5.1 % (0.0-4.0); HEMATOCRIT 24.5 % (39.0-51.0); LYMPH % 19.2 % (9.0-44.0); LYMPHOCYTE # 1.1 TH/MM3 (1.0-4.8); MEAN CELL VOLUME 118.4 FL (80.0-100.0); MEAN CORPUSCULAR HEMOGLOBIN 38.6 PG (27.0-34.0); MEAN CORPUSCULAR HGB CONC 32.6 % (32.0-36.0); MEAN PLATELET VOLUME 7.5 FL (7.0-11.0); MONO % 7.4 % (0.0-8.0); MONOCYTE # 0.4 TH/MM3 (0-0.9); NEUT % 67.1 % (16.0-70.0); PLATELET COUNT 81 TH/MM3 (150-450); RED BLOOD COUNT 2.07 MIL/MM3 (4.50-5.90); WHITE BLOOD COUNT 5.5 TH/MM3 (4.0-11.0)
[2017-11-05 06:26] LABS: CHLORIDE 92 MEQ/L (98-107); SODIUM (NA) 129 MEQ/L (136-145)
[2017-11-05 06:27] LABS: INTERNATIONAL NORMALIZED RATIO 1.7 RATIO; PROTHROMBIN TIME - PATIENT 17.1 SEC (9.8-11.6)
[2017-11-05 06:29] LABS: CALCIUM 7.5 MG/DL (8.5-10.1)
[2017-11-05 06:30] LABS: ALBUMIN 2.3 GM/DL (3.4-5.0); BICARBONATE 29.9 MEQ/L (21.0-32.0); BLOOD UREA NITROGEN 16 MG/DL (7-18); GLUCOSE,RANDOM 103 MG/DL (74-106)
[2017-11-05 06:33] LABS: ALT (GPT) 47 U/L (12-78); AST (GOT) 114 U/L (15-37); GLOMERULAR FILTRATION RATE 57 ML/MIN (>89)
[2017-11-05 06:40] LABS: ALKALINE PHOSPHATASE 88 U/L (45-117); TOTAL BILIRUBIN ADULT 3.2 MG/DL (0.2-1.0); TOTAL PROTEIN 6.1 GM/DL (6.4-8.2)
[2017-11-05] MEDS: PROPRANOLOL HCL 10 MG TAB PO SCH ×2 (08:25→20:38)
[2017-11-05] MEDS: SODIUM CHLORIDE 0.9% FLUSH 10 ML FLUSH IV FLUSH SCH ×2 (08:28→20:43)
[2017-11-05] MEDS: FUROSEMIDE 40 MG TAB PO SCH (08:28)
[2017-11-05] MEDS: DOCUSATE SODIUM 50 MG/SENNA 8.6 MG TAB PO SCH ×2 (08:28→20:43)
[2017-11-05] MEDS: SPIRONOLACTONE 50 MG TAB PO SCH ×2 (08:28→16:57)
--- NOTE | 2017-11-05 09:49 | HHI.HP ---
HPI Service [facility] Primary Care Physician Dominique Solano MD Admission Diagnosis Renal Failure; AMS; Amphetamine Diagnoses: Chief Complaint: Abdominal pain Travel History International Travel<30 Days: No Contact w/Intl Traveler <30 Da: No Traveled to Known Affected Are: No History of Present Illness 57-year-old white male being admitted for intractable abdominal pain. Patient states he was in his usual state of health until began having worsening of his chronic abdominal pain about 2 nights ago. Over the next 24 hours his pain worsened in intensity to a 10 out of 10 "worse pain in the world", prompting him to call his brother taken to the emergency department. Patient says his pain was all throughout his entire abdomen and was multifaceted with features of sharp stabbing dull gnawing aching burning nature. Reports having some nausea and more intense dry heaving than what is typical for him at baseline. Denies having any diarrhea. Says he did not take any medications for pain including [id number] medications. Reportedly had fevers and chills subjectively. Patient says within the last week he has had 3 paracenteses done at [facility] in total using 36 L. 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 Patient does endorse having chronic itching. Says he does not like to take narcotic pain medication as it could sometimes make him loopy. The emergency room he had a CT abdomen done which showed no acute findings, did show at least a 3.8 cm abdominal aortic aneurysm. Splenomegaly and a cirrhotic liver were noted. He was given a dose of Rocephin for concern of possible SBP. He remained afebrile. Review of Systems Except as stated in HPI: all other systems reviewed are Neg Past Family Social History Past Medical History End-stage liver disease, cirrhosis, ascites, COPD Allergies: Coded Allergies: No Known Allergies (Verified Adverse Reaction, Unknown, 11/04/17) Family History Dad had lung cancer, sister had some accidental overdose with a depression medication Social History Lifelong history of smoking, says he stopped drinking 10 weeks ago, prior martial artist, endorses marijuana Physical Exam Vital Signs Vital Signs Date Time Temp Pulse Resp B/P (MAP) Pulse Ox O2 Delivery O2 Flow Rate FiO2 11/05/17 08:00 97.7 102 18 99/72 (81) 95 11/05/17 04:24 97.6 84 18 104/61 (75) 97 11/05/17 00:32 97.3 90 16 101/55 (70) 98 11/04/17 23:08 94 11/04/17 22:12 97.6 80 18 120/56 (77) 100 11/04/17 21:50 11/04/17 19:05 93 18 106/53 (70) 97 Room Air 11/04/17 16:05 97 Nasal Cannula 11/04/17 14:59 98.7 85 16 111/83 (92) 100 Physical Exam VS: afebrile GENERAL: Sitting up in bed, no acute distress, awake, alert SKIN: Warm and dry. EYES: No scleral icterus. No injection or drainage. ENT: No nasal bleeding or discharge. Mucous membranes pink and moist. CARDIOVASCULAR: Regular rate and rhythm. no murmurs RESPIRATORY: No accessory muscle use. Clear to auscultation. Breath sounds equal bilaterally. GASTROINTESTINAL: Abdomen moderately distended at least, soft to taut, no signs of acute abdomen, minimally tender to palpation diffusely Extremities: No clubbing, cyanosis, or edema. No obvious deformities. MUSCULOSKELETAL:adequate muscle bulk and tone for age and habitus NEUROLOGICAL: Awake and alert. No obvious cranial nerve deficits. No facial droop nor slurred speech noted. PSYCHIATRIC: Appropriate mood and affect; insight and judgment normal. Laboratory Laboratory Tests Test 11/04/17 16:22 11/04/17 21:17 11/04/17 22:35 11/05/17 05:33 White Blood Count 7.5 5.5 Red Blood Count 2.53 2.07 Hemoglobin 9.8 8.0 Hematocrit 29.9 24.5 Mean Corpuscular Volume 118.0 118.4 Mean Corpuscular Hemoglobin 38.8 38.6 Mean Corpuscular Hemoglobin Concent 32.9 32.6 Red Cell Distribution Width 14.1 14.0 Platelet Count 114 81 Mean Platelet Volume 8.1 7.5 Neutrophils (%) (Auto) 80.0 67.1 Lymphocytes (%) (Auto) 10.5 19.2 Monocytes (%) (Auto) 7.6 7.4 Eosinophils (%) (Auto) 0.5 5.1 Basophils (%) (Auto) 1.4 1.2 Neutrophils # (Auto) 6.0 3.6 Lymphocytes # (Auto) 0.8 1.1 Monocytes # (Auto) 0.6 0.4 Eosinophils # (Auto) 0.0 0.3 Basophils # (Auto) 0.1 0.1 CBC Comment DIFF FINAL DIFF FINAL Differential Comment Prothrombin Time 16.7 17.1 Prothromb Time International Ratio 1.7 1.7 Activated Partial Thromboplast Time 29.6 Blood Urea Nitrogen 15 16 Creatinine 1.50 1.30 Random Glucose 140 103 Total Protein 7.3 6.1 Albumin 2.7 2.3 Calcium Level 8.2 7.5 Alkaline Phosphatase 99 88 Aspartate Amino Transf (AST/SGOT) 167 114 Alanine Aminotransferase (ALT/SGPT) 52 47 Total Bilirubin 5.8 3.2 Sodium Level 132 129 Potassium Level 3.8 3.3 Chloride Level 95 92 Carbon Dioxide Level 23.5 29.9 Anion Gap 14 7 Estimat Glomerular Filtration Rate 48 57 Lactic Acid Level 6.7 4.9 Lipase 108 Urine Color OTHER Urine Turbidity CLEAR Urine pH 5.5 Urine Specific [place] 1.010 Urine Protein 30 Urine Glucose (UA) 100 Urine Ketones TRACE Urine Occult Blood NEG Urine Nitrite POS Urine Bilirubin LARGE Urine Urobilinogen GREATER/EQUAL 8.0 Urine Leukocyte Esterase NEG Urine RBC 0-2 Urine WBC 3-5 Urine Squamous Epithelial Cells 0-5 Urine Bacteria RARE Urine Hyaline Casts 3-5 Microscopic Urinalysis Comment CULTURE INDICATED Date/Time Source Procedure Growth Status 11/04/17 22:35 Urine Clean Catch Urine Culture Pending Received Result Diagram: 11/05/17 0533 11/05/17 0533 Imaging Last Impressions Abdomen/Pelvis CT 11/04/17 1518 Signed Impressions: Service Date/Time: Saturday, November 04, 2017 18:11 - CONCLUSION: 1. Cirrhosis and portal hypertension with large volume ascites. 2. Atherosclerosis and abdominal aortic aneurysm. 3. Indeterminate low-density liver lesions are noted. These have been described previously. 4. Renal cysts. MD Elliott Littlejohn VTE Risk Assessment Caprini VTE Risk Assessment: Mod/High Risk (score >= 2) VTE Pharm Contraindication: Coagulopathy,INR elevated Caprini Risk Assessment Model Point Value = 1 Point Value = 2 Point Value = 3 Point Value = 5 Age 41-60 Minor surgery BMI > 25 kg/m2 Swollen legs Varicose veins or History of unexplained or recurrent spontaneous Oral contraceptives or hormone replacement Sepsis (< 1 month) Serious lung disease, including pneumonia (< 1 month) Abnormal pulmonary function Acute myocardial infarction Congestive heart failure (< 1 month) History of inflammatory bowel disease Medical patient at bed rest Age 61-74 Arthroscopic surgery Major open surgery (> 45 min) Laparoscopic surgery (> 45 min) Malignancy Confined to bed (> 72 hours) Immobilizing plaster cast Central venous access Age >= 75 History of VTE Family history of VTE Factor V Leiden Prothrombin [id number] Lupus anticoagulant Anticardiolipin antibodies Elevated serum homocysteine Heparin-induced thrombocytopenia Other congenital or acquired thrombophilia Stroke (< 1 month) Elective arthroplasty Hip, pelvis, or leg fracture Acute spinal cord injury (< 1 month) Prophylaxis Regimen Total Risk Factor Score Risk Level Prophylaxis Regimen 0-1 Low Early ambulation 2 Moderate Order ONE of the following: *Sequential Compression Device (SCD) *Heparin 5000 units SQ BID 3-4 Higher Order ONE of the following medications: *Heparin 5000 units SQ TID *Enoxaparin/Lovenox 40 mg SQ daily (WT < 150 kg, CrCl > 30 mL/min) *Enoxaparin/Lovenox 30 mg SQ daily (WT < 150 kg, CrCl > 10-29 mL/min) *Enoxaparin/Lovenox 30 mg SQ BID (WT < 150 kg, CrCl > 30 mL/min) AND/OR *Sequential Compression Device (SCD) 5 or more Highest Order ONE of the following medications: *Heparin 5000 units SQ TID (Preferred with Epidurals) *Enoxaparin/Lovenox 40 mg SQ daily (WT < 150 kg, CrCl > 30 mL/min) *Enoxaparin/Lovenox 30 mg SQ daily (WT < 150 kg, CrCl > 10-29 mL/min) *Enoxaparin/Lovenox 30 mg SQ BID (WT < 150 kg, CrCl > 30 mL/min) AND *Sequential Compression Device (SCD) Assessment and Plan Assessment and Plan Intractable abdominal pain -Much improved since admission w/ pain meds and IVFs, continue po meds, stopping IV morphine, avoid tylenol -Could be secondary to hepatitis as his AST is elevated, trend LFTs -Low-dose IV fluids and pain control -Very questionable SBP, consulting gastroenterology to see if paracentesis is warranted given his coagulopathy and ambiguous picture for any infection -ordering urine drug screen lactic acidosis - unclear etiology at this point, IVFs, no signs/symptoms of sepsis, improving since admission Ascites -Secondary to liver disease, minimize IVFs -We will let gastroenterology dictate need for paracentesis and/or studies -started propranolol acute hyponatremia -Likely secondary to end-stage liver disease -Monitor, hold off on home diuretic for now -low salt, high protein diet Anemia -drop in h/h, monitor, ordering hemoccult MILE - improving w/ IVFs abnormal UA - f/u culture, no clinical s/s of UTI, monitor Aortic aneurysm - less than 4 cm, monitor COPD -Taking home home meds Pruritus -Likely secondary to hyperbilirubinemia secondary to end-stage liver disease, Questran started SCDs Physician Certification 2 Midnight Certification Type: Admission for Inpatient Services Order for Inpatient Services The services are ordered in accordance with Medicare regulations or non- Medicare payer requirements, as applicable. In the case of services not specified as inpatient-only, they are appropriately provided as inpatient services in accordance with the 2-midnight benchmark. Estimated LOS (days): 2 2 days is the estimated time the patient will need to remain in the hospital, assuming treatment plan goals are met and no additional complications. Post-Hospital Plan: Not yet determined Adelfo Cavanaugh MD Nov 05, 2017 09:49
[2017-11-05] MEDS: FAMOTIDINE 20 MG TAB PO SCH (11:07)
[2017-11-05] MEDS: CHOLESTYRAMINE 4 GM PACKET PO SCH ×2 (11:07→22:14)
--- NOTE | 2017-11-05 11:36 | MB ---
cc: Jose Alfredo Webber MD DATE: 11/05/2017 REFERRING PHYSICIAN: Dr. Cavanaugh. REASON FOR REFERRAL: Abdominal pain and distention. Thank you for the consultation. HISTORY OF PRESENT ILLNESS: This is a 57-year-old gentleman who has a history of cirrhosis, most likely related to alcohol. The patient had significant ascites. He was at [facility] about a week ago and he had 3 paracenteses, about 10-12 liters each time. The patient had been doing okay. He lives with his brother. He started having distention of his abdomen where it became mostly diffusely pertinent pain. He stated that the pain sometimes gets up to 10/10 throughout the abdomen with tense skin and tense abdomen. The patient stated that he does not take his medication regularly and he drinks a lot of water, according to him. He denies any fever or chills. He is a very poor historian. He said his brother takes care of him. He denies any nausea, vomiting. No hematemesis. No blood in the stool. CT scan showed significant cirrhosis and significant distention of the abdomen. PAST MEDICAL HISTORY: Past medical history significant for COPD, cirrhosis, ascites. ALLERGIES: NO KNOWN DRUG ALLERGIES. SOCIAL HISTORY: He stopped drinking 10 weeks ago. He is a smoker. He used marijuana from time to time. FAMILY HISTORY: Significant for lung cancer. REVIEW OF SYSTEMS: All 12-point negative except HPI. PHYSICAL EXAMINATION: GENERAL: Alert, oriented. No acute distress. VITAL SIGNS: Stable. HEENT: Pupils round, reactive to light with scleral icterus. NECK: Supple. CHEST: Clear to auscultation and percussion. CARDIAC: Regular rate and rhythm. No murmur or gallop at this time. ABDOMEN: Distended with ascites. Mild diffuse discomfort with no rebound. Unable to evaluate the liver or spleen because of the ascites. Positive bowel sounds, but distant. MUSCULOSKELETAL: No focal abnormality. No significant edema. NEUROLOGIC: Neurologically intact. PSYCHE: Psychologically appropriate. LABORATORY DATA: White count 5.5, hemoglobin 8.0, down from 9.8, platelet 81. INR 1.7, total bilirubin 3.2, down from 5.8, AST 114, ALT 47, alkaline phosphatase 88, lipase 108. Positive for marijuana. CT scan shows cirrhosis, portal hypertension, large volume ascites, atherosclerosis, questionable liver mass or density. ASSESSMENT: A 57-year-old gentleman with cirrhosis secondary to alcohol with severe ascites and portal hypertension. PLAN: 1. The patient had a recent admission to [facility]. We will try to obtain the records from there to avoid duplication of services. 2. Most likely the patient will need paracentesis. 3. The patient needs to be compliant with his medication and fluid restriction. 4. I doubt that he has SBP. I think this is mostly related to the tension of the ascites. 5. If there is actually a mass in the liver, the patient will need MRI for better evaluation if it was not already done at [facility]. 6. Also, tumor markers will need to be done if it was not done at [facility]. MD DEBORAH Fang/TL , 10:33 AM , 11:35 AM
[2017-11-05] MEDS ORDERED: COMBIVENT RESPIMAT INH SCH (12:00)
[2017-11-05] MEDS: BUDESONIDE-FORMOTEROL 160/4.5 MCG INHALER INH SCH ×3 (12:16→21:00)
[2017-11-05] MEDS ORDERED: RESP: ALBUTEROL 2.5 MG/IPRATROPIUM 0.5 MG NEB (SCH) NEB ×2 (16:00→20:00)
[2017-11-05] MEDS ORDERED: ALBUMIN 25% INJ 0 ML IV ONE (16:00)
[2017-11-05 18:32] LABS: PERITONEAL LYMPHS 45 %; PERITONEAL MESOTHELIAL 37 %; PERITONEAL MONOS 11 %; PERITONEAL POLYS(SEGS) 4 %; PERITONEAL RBC 2630 /MM3 (0-0)
[2017-11-05] MEDS ORDERED: ALBUTEROL SULFATE 90 MCG/ACT HFA 18 GM INHALER INH PRN (20:00)
[2017-11-06] VITALS: BP 95/50; PULSE 80; RESP 16; TEMP 97.8; O2SAT 94
[2017-11-06 04:00] VITALS: BP 98/56; PULSE 79; RESP 16; TEMP 98.4; O2SAT 95
[2017-11-06 06:39] LABS: HEMATOCRIT 23.1 % (39.0-51.0); HEMOGLOBIN 7.7 GM/DL (13.0-17.0); MEAN CELL VOLUME 117.1 FL (80.0-100.0); MEAN CORPUSCULAR HEMOGLOBIN 39.1 PG (27.0-34.0); MEAN CORPUSCULAR HGB CONC 33.4 % (32.0-36.0); PLATELET COUNT 75 TH/MM3 (150-450); RED BLOOD COUNT 1.98 MIL/MM3 (4.50-5.90); RED CELL DISTRIBUTION WIDTH 14.1 % (11.6-17.2); WHITE BLOOD COUNT 3.9 TH/MM3 (4.0-11.0)
[2017-11-06 07:37] LABS: ALBUMIN 2.2 GM/DL (3.4-5.0); BICARBONATE 30.9 MEQ/L (21.0-32.0); CALCIUM 7.4 MG/DL (8.5-10.1); CALCIUM-PROTEIN CORRECTED 8.3 MG/DL (8.5-10.1); TOTAL PROTEIN 5.5 GM/DL (6.4-8.2)
[2017-11-06 08:00] VITALS: BP 74/45; PULSE 82; RESP 18; TEMP 97.9; O2SAT 95
--- NOTE | 2017-11-06 08:34 | HHI.GIFU ---
Subjective Remarks Comfortable in bed feeling better Objective Vitals I&O Vital Signs Date Time Temp Pulse Resp B/P (MAP) Pulse Ox O2 Delivery O2 Flow Rate FiO2 11/06/17 04:00 98.4 79 16 98/56 (70) 95 11/06/17 00:00 97.8 80 16 95/50 (65) 94 11/05/17 20:00 98.6 83 16 93/53 (66) 95 11/05/17 19:44 79 11/05/17 17:00 97.7 85 18 106/58 (74) 96 11/05/17 16:45 98.0 80 18 102/68 (79) 96 11/05/17 12:00 97.6 102 18 97/58 (71) 95 I/O 11/05/17 11/05/17 11/05/17 11/06/17 11/06/17 11/06/17 07:00 15:00 23:00 07:00 15:00 23:00 Intake Total 630 ml Output Total 200 ml Balance -200 ml 630 ml Intake Oral 480 ml IV Total 150 ml Output Urine Total 200 ml # Voids 1 # Bowel Movements 0 0 Laboratory Laboratory Tests Test 11/05/17 10:30 11/05/17 15:12 11/05/17 21:15 11/06/17 05:25 Lactic Acid Level 1.5 3.4 Peritoneal Fluid WBC 50 Peritoneal Fluid RBC 2630 Peritoneal Fluid Neutrophils 4 Peritoneal Fluid Lymphocytes 45 Peritoneal Fluid Monocytes 11 Peritoneal Fluid Mesothelial Cells 37 White Blood Count 3.9 Red Blood Count 1.98 Hemoglobin 7.7 Hematocrit 23.1 Mean Corpuscular Volume 117.1 Mean Corpuscular Hemoglobin 39.1 Mean Corpuscular Hemoglobin Concent 33.4 Red Cell Distribution Width 14.1 Platelet Count 75 Mean Platelet Volume 8.0 Blood Urea Nitrogen 15 Creatinine 1.00 Random Glucose 111 Total Protein 5.5 Albumin 2.2 Calcium Level 7.4 Alkaline Phosphatase 75 Aspartate Amino Transf (AST/SGOT) 66 Alanine Aminotransferase (ALT/SGPT) 35 Total Bilirubin 2.0 Sodium Level 132 Potassium Level 3.5 Chloride Level 93 Carbon Dioxide Level 30.9 Anion Gap 8 Estimat Glomerular Filtration Rate 77 Protein Corrected Calcium 8.3 Date/Time Source Procedure Growth Status 11/05/17 15:12 Fluid Peritoneal Fluid Gram Stain Pending Received 11/05/17 15:12 Fluid Peritoneal Fluid Body Fluid Culture Pending Received 11/04/17 22:35 Urine Clean Catch Urine Culture - Preliminary NO GROWTH IN 24 HOURS. Resulted Imaging Last Impressions Abdomen/Pelvis CT 11/04/17 1518 Signed Impressions: Service Date/Time: Monday, November 04, 2017 18:11 - CONCLUSION: 1. Cirrhosis and portal hypertension with large volume ascites. 2. Atherosclerosis and abdominal aortic aneurysm. 3. Indeterminate low-density liver lesions are noted. These have been described previously. 4. Renal cysts. William Humphries MD Physical Exam HEENT: normocephalic; atraumatic; no jaundice. Throat is clear. NECK: Neck is supple, no JVD, CHEST: Chest is clear to auscultation and percussion. CARDIAC: Regular rate and rhythm with no murmur gallop or rubs. ABDOMEN: Soft, nondistended, nontender; no hepatosplenomegaly; bowel sounds are present in all four quadrants. Mild ascites at the present time EXTREMITIES: No clubbing, cyanosis, or edema. SKIN: Normal; no rash; no jaundice. SPECIAL EDUCATION EDUCATIONAL ASSISTANT: No focal deficits; alert and oriented times three. Assessment and Plan Plan Cirrhosis secondary to alcohol Acute alcoholic hepatitis Ascites Mild coagulopathy Anemia macrocytic hyperchromic Hypoalbuminemia No obvious GI bleed Alcohol cessation Continue with current supportive care Await paracentesis results Jay Salguero MD Nov 06, 2017 08:34
[2017-11-06] MEDS: FUROSEMIDE 40 MG TAB PO SCH (09:34)
[2017-11-06] MEDS: SPIRONOLACTONE 50 MG TAB PO SCH (09:34)
[2017-11-06] MEDS: FAMOTIDINE 20 MG TAB PO SCH (09:35)
[2017-11-06] MEDS: DOCUSATE SODIUM 50 MG/SENNA 8.6 MG TAB PO SCH (09:35)
[2017-11-06] MEDS: PROPRANOLOL HCL 10 MG TAB PO SCH (09:35)
[2017-11-06] MEDS: SODIUM CHLORIDE 0.9% FLUSH 10 ML FLUSH IV FLUSH SCH (09:36)
[2017-11-06] MEDS: BUDESONIDE-FORMOTEROL 160/4.5 MCG INHALER INH SCH (09:43)
[2017-11-06] MEDS ORDERED: ALDA50TA2 PO (10:54)
[2017-11-06] MEDS ORDERED: FURO40TA PO (10:54)
[2017-11-06] MEDS ORDERED: PROP10TA6 PO (10:54)
--- NOTE | 2017-11-06 10:56 | HHI.DCPOC ---
Discharge Care Plan Diagnosis: (1) Cirrhosis of liver with ascites Goals to Promote Your Health * To prevent worsening of your condition and complications * To maintain your health at the optimal level Directions to Meet Your Goals Take your medications as prescribed Follow your dietary instruction Follow activity as directed Keep your appointments as scheduled Take your immunizations and boosters as scheduled If your symptoms worsen call your PCP, if no PCP go to Urgent Care Center or Emergency Room Smoking is Dangerous to Your Health. Avoid second hand smoke Call the 24-hour hour crisis hotline for domestic abuse at Gareth Heaton Nov 06, 2017 10:55
--- NOTE | 2017-11-06 11:03 | HHI.DS ---
Discharge Summary Admission Date Nov 04, 2017 at 19:42 Discharge Date: Nov 06, 2017 Admitting Diagnosis Renal Failure; AMS; Amphetamine (1) Cirrhosis of liver with ascites ICD Code: K74.60 - Unspecified cirrhosis of liver Procedures Ultrasound-guided paracentesis Brief History - From Admission 57-year-old white male being admitted for intractable abdominal pain. Patient states he was in his usual state of health until began having worsening of his chronic abdominal pain about 2 nights ago. Over the next 24 hours his pain worsened in intensity to a 10 out of 10 "worse pain in the world", prompting him to call his brother taken to the emergency department. Patient says his pain was all throughout his entire abdomen and was multifaceted with features of sharp stabbing dull gnawing aching burning nature. Reports having some nausea and more intense dry heaving than what is typical for him at baseline. Denies having any diarrhea. Says he did not take any medications for pain including [id number] medications. Reportedly had fevers and chills subjectively. Patient says within the last week he has had 3 paracenteses done at [facility] in total using 36 L. 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 Patient does endorse having chronic itching. Says he does not like to take narcotic pain medication as it could sometimes make him loopy. The emergency room he had a CT abdomen done which showed no acute findings, did show at least a 3.8 cm abdominal aortic aneurysm. Splenomegaly and a cirrhotic liver were noted. He was given a dose of Rocephin for concern of possible SBP. He remained afebrile. CBC/BMP: 11/06/17 0525 11/06/17 0525 Significant Findings Laboratory Tests Test 11/04/17 16:22 11/04/17 21:17 11/04/17 22:35 11/05/17 05:33 Red Blood Count 2.53 MIL/MM3 (4.50-5.90) 2.07 MIL/MM3 (4.50-5.90) Hemoglobin 9.8 GM/DL (13.0-17.0) 8.0 GM/DL (13.0-17.0) Hematocrit 29.9 % (39.0-51.0) 24.5 % (39.0-51.0) Mean Corpuscular Volume 118.0 FL (80.0-100.0) 118.4 FL (80.0-100.0) Mean Corpuscular Hemoglobin 38.8 PG (27.0-34.0) 38.6 PG (27.0-34.0) Platelet Count 114 TH/MM3 (150-450) 81 TH/MM3 (150-450) Neutrophils (%) (Auto) 80.0 % (16.0-70.0) Lymphocytes # (Auto) 0.8 TH/MM3 (1.0-4.8) Prothrombin Time 16.7 SEC (9.8-11.6) 17.1 SEC (9.8-11.6) Creatinine 1.50 MG/DL (0.60-1.30) Random Glucose 140 MG/DL (74-106) Albumin 2.7 GM/DL (3.4-5.0) 2.3 GM/DL (3.4-5.0) Calcium Level 8.2 MG/DL (8.5-10.1) 7.5 MG/DL (8.5-10.1) Aspartate Amino Transf (AST/SGOT) 167 U/L (15-37) 114 U/L (15-37) Total Bilirubin 5.8 MG/DL (0.2-1.0) 3.2 MG/DL (0.2-1.0) Sodium Level 132 MEQ/L (136-145) 129 MEQ/L (136-145) Chloride Level 95 MEQ/L (98-107) 92 MEQ/L (98-107) Estimat Glomerular Filtration Rate 48 ML/MIN (>89) 57 ML/MIN (>89) Lactic Acid Level 6.7 mmol/L (0.4-2.0) 4.9 mmol/L (0.4-2.0) Urine Protein 30 mg/dL (NEG-TRACE) Urine Glucose (UA) 100 mg/dL (NEG) Urine Ketones TRACE mg/dL (NEG) Urine Nitrite POS (NEG) Urine Bilirubin LARGE (NEG) Urine Urobilinogen GREATER/EQUAL 8.0 MG/DL Urine Bacteria RARE /hpf (NONE) Urine Hyaline Casts 3-5 /lpf (RARE) Urine Benzodiazepines Screen POS (NEG) Urine Cannabinoids Screen POS (NEG) Eosinophils (%) (Auto) 5.1 % (0.0-4.0) Total Protein 6.1 GM/DL (6.4-8.2) Potassium Level 3.3 MEQ/L (3.5-5.1) Test 11/05/17 10:30 11/05/17 15:12 11/05/17 21:15 11/06/17 05:25 Peritoneal Fluid WBC 50 /MM3 (0-10) Peritoneal Fluid RBC 2630 /MM3 (0-0) Lactic Acid Level 3.4 mmol/L (0.4-2.0) White Blood Count 3.9 TH/MM3 (4.0-11.0) Red Blood Count 1.98 MIL/MM3 (4.50-5.90) Hemoglobin 7.7 GM/DL (13.0-17.0) Hematocrit 23.1 % (39.0-51.0) Mean Corpuscular Volume 117.1 FL (80.0-100.0) Mean Corpuscular Hemoglobin 39.1 PG (27.0-34.0) Platelet Count 75 TH/MM3 (150-450) Random Glucose 111 MG/DL (74-106) Total Protein 5.5 GM/DL (6.4-8.2) Albumin 2.2 GM/DL (3.4-5.0) Calcium Level 7.4 MG/DL (8.5-10.1) Aspartate Amino Transf (AST/SGOT) 66 U/L (15-37) Total Bilirubin 2.0 MG/DL (0.2-1.0) Sodium Level 132 MEQ/L (136-145) Chloride Level 93 MEQ/L (98-107) Estimat Glomerular Filtration Rate 77 ML/MIN (>89) Protein Corrected Calcium 8.3 MG/DL (8.5-10.1) Imaging Last Impressions Abdomen/Pelvis CT 11/04/17 1524 Signed Impressions: Service Date/Time: Saturday, November 04, 2017 18:11 - CONCLUSION: 1. Cirrhosis and portal hypertension with large volume ascites. 2. Atherosclerosis and abdominal aortic aneurysm. 3. Indeterminate low-density liver lesions are noted. These have been described previously. 4. Renal cysts. William Humphries MD PE at Discharge GENERAL: Well-developed, well-nourished, in no acute distress. alert and orientated HEENT: Head is normocephalic without any lesions or masses noted. Facial features are symmetric. Eyes: Extraocular muscles are intact. Conjunctivae were clear. NECK: Supple without any masses. Trachea midline no deviation. No JVD, CARDIAC: Regular rhythm, regular rate. S1/S2 are heard. No murmurs gallops or rubs. LUNGS: Clear to auscultation bilaterally. No wheeze, rhonchi or rales. No use of accessory muscles on inspiration or expiration. ABDOMEN: Soft, nontender. Nondistended. Bowel sounds heard in all 4 quadrants. No organomegaly or masses. Negative rebound, negative guarding EXTREMITIES: No edema, pulses are equal bilaterally. No cyanosis or clubbing NEUROLOGY: Mood and affect appear appropriate. Cranial nerves II through XII grossly intact. Moving all extremities, speech is clear Hospital Course 57-year-old male with known history of cirrhosis, recurrent ascites 2 recently was discharged from [facility] approximately 1 week prior and at that time patient underwent 3 paracentesis that supposedly yielded 36 L of fluid. As indicated patient had workup performed there with possible biopsy and MRI of the liver. Records were requested for further delineation. Patient presented to [facility] with increased abdominal pain with abdominal distention. Patient had elevated lactic acid level on presentation and it was suspected that the patient may have spontaneous bacterial peritonitis. Is recommended that the patient be admitted to the hospital for paracentesis. Patient did undergo paracentesis with a yield of what nurses indicated 4-1/2 L removal. Studies were performed which does not indicate any spontaneous bacterial endocarditis. Antibiotics were discontinued. Patient has known history of noncompliance and during his stay in the hospital he was started on propanolol, furosemide, spironolactone. It does not appear that patient had any recurrence of any ascites during his stay at the hospital. Nursing staff indicates that the patient is always complaining of pain 10/10 on a pain scale. Even though the patient is sleeping soundly and when he awakens he states that he is in 10/10 pain. When talking to him today about discharge planning. Patient states that he cannot leave because his brother can pick them up until this evening. I notified him that he is clinically stable and that we will plan to discharge accordingly. Patient does understand. And when told him about continued pain medication he states that he does not need any at this time. He is not in any pain. Patient did not have any clinical signs of infection. We will plan discharge accordingly. Pt Condition on Discharge: Stable Discharge Disposition: Discharge Home Discharge Time: > 30 minutes Discharge Instructions DIET: Follow Instructions for: Liver Disease Diet Activities you can perform: Regular-No Restrictions Follow up Referrals: Gastroenterology - 2 Weeks PCP Follow-up - 1 Week New Medications: Propranolol (Propranolol) 10 Mg Tab 10 MG PO Q12HR for cirrhosis for 30 Days, TAB Spironolactone (Aldactone) 50 Mg Tab 50 MG PO BID@,18 for cirrhosis, ascites for 30 Days, TAB Continued Medications: Fluticasone-Salmeterol Inh (Advair Diskus Inh) 500-50 Mcg/Blist Aer 1 PUFF INH BID, #1 INHALER 2 Refills Rinse mouth after use. Furosemide (Furosemide) 40 Mg Tab 40 MG PO DAILY for ascites, #30 TAB 0 Refills (This prescription has been renewed) Ipratropium-Albuterol Inh (Combivent Respimat Inh) 20-100 Long Term/Act Aero 1 PUFF INH Q6HR for Asthma Management, #1 INHALER 6 Refills Ranitidine (Ranitidine) 150 Mg Tab 150 MG PO DAILY for Heartburn Management, #30 TAB 0 Refills Gareth Heaton Nov 06, 2017 11:03
== END 2017-11-06 11:52 | disposition home or self-care (01) | DRG 433 ==
LOC: PHED 14:31 → PHEDA 15:10 → INTOOBSV 15:10 → OBSVTOIN 19:42 → PH3A 21:33
PROVIDERS: ADMIT Hospitalist; ATTEND Hospitalist
PROC: 0W9G3ZZ Drainage of Peritoneal Cavity, Percutaneous Approach (ICD-10-PCS; principal; 2017-11-05)
DX: K70.11 Alcoholic hepatitis with ascites (principal); E87.1 Hypo-osmolality and hyponatremia; K70.31 Alcoholic cirrhosis of liver with ascites; N17.9 Acute kidney failure, unspecified; D68.9 Coagulation defect, unspecified; K72.90 Hepatic failure, unspecified without coma; E87.2 Acidosis; K76.6 Portal hypertension; R16.1 Splenomegaly, not elsewhere classified; I10 Essential (primary) hypertension; J44.9 Chronic obstructive pulmonary disease, unspecified; F41.9 Anxiety disorder, unspecified; I25.10 Atherosclerotic heart disease of native coronary artery without angina pectoris; I25.2 Old myocardial infarction; I71.4 Abdominal aortic aneurysm, without rupture; L29.9 Pruritus, unspecified; D53.9 Nutritional anemia, unspecified; E88.09 Other disorders of plasma-protein metabolism, not elsewhere classified; F12.90 Cannabis use, unspecified, uncomplicated; F17.200 Nicotine dependence, unspecified, uncomplicated; Z91.19 Patient's noncompliance with other medical treatment and regimen
CPT/HCPCS: 49083; 74177; 80053; 80307; 81001; 83605; 83690; 85025; 85027; 85610; 85730; 87070; 87086; 87205; 88112; 88305; 89051; C1729; J0696; J1170; J2270; J2405; P9047; Q9967